=== PATIENT | male | born 1965 | race Caucasian/White ===

== ENCOUNTER → 2020-01-15 13:06 | Outpatient (BNVA) | payer OTHER, SELFPAY | PROVIDERS: PCP Physician Assistant; Visit Provider Family Medicine Adult Medicine | DX: M47.816 Spondylosis without myelopathy or radiculopathy, lumbar region (principal); G89.29 Other chronic pain; Z79.891 Long term (current) use of opiate analgesic | CPT/HCPCS: 99214 ==

== ENCOUNTER 2020-02-10 14:04 | Outpatient (REF) | payer OTHER, SELFPAY ==
[2020-02-10 14:54] LABS: MANUAL DIFF FLAG NO
[2020-02-10 14:57] LABS: Basophils Percent Auto 0.1 % (0-2); Hematocrit 40.4 % (42-52); Hemoglobin 13.1 g/dl (14.0-18.0); Imm Gran Pct Auto 2.2 % (0.0-0.4); Lymphocytes Absolute Auto 0.8 X10*3/uL (1.2-4.9); Lymphocytes Percent Auto 8.6 % (20-40); Mean Corpuscular HGB Conc 32.4 g/dl (31.0-36.0); Mean Corpuscular Hemoglobin 31.9 pg (27.0-33.0); Mean Corpuscular Volume 98.3 fL (80-98); Mean Platelet Volume 9.8 fL (9.4-12.4); Monocytes Absolute Auto 0.5 X10*3/uL (0.1-1.2); Monocytes Percent Auto 5.7 % (2-11); NRBC Pct Auto 0.2 /100WBC (0.0-0.2); Neutrophils Absolute Auto 7.4 X10*3/uL (2.0-8.3); Neutrophils Percent Auto 83.4 % (45-73); Platelet Count 212 X10*3/uL (160-400); Red Blood Count 4.11 X10*6/uL (4.60-5.80); White Blood Count 8.9 X10*3/uL (4.8-10.8)
[2020-02-10 15:28] LABS: Alanine Aminotransferase 39 U/L (0-40); Albumin Level 4.1 g/dL (3.5-5.0); Alkaline Phosphatase 65 U/L (39-117); Anion Gap 16 (12-20); Aspartate Amino Transferase 27 U/L (5-37); Bilirubin Total 0.7 mg/dL (0.0-1.0); Blood Urea Nitrogen 21 mg/dL (9-16); Calcium 8.2 mg/dL (8.4-10.2); Carbon Dioxide 34 mmol/L (22-29); Chloride 97 mmol/L (96-108); Estimated Glomerular Filt Rate > 60; Glucose Random 129 mg/dL (60-115); Potassium 3.8 mmol/l (3.3-5.1); Sodium 143 mmol/L (135-145); Total Protein 6.9 g/dL (6.5-8.0)
[2020-02-10 15:34] LABS: B Type Natriuretic Peptide 26 pg/mL (<100)
== END 2020-02-10 14:05 | disposition home or self-care (01) ==
LOC: HO.LAB 14:04
PROVIDERS: PCP Physician Assistant; Visit Provider Physician Assistant
DX: J44.9 Chronic obstructive pulmonary disease, unspecified (principal); I10 Essential (primary) hypertension
CPT/HCPCS: 36415; 80053; 83880; 85025

== ENCOUNTER → 2020-03-17 14:35 | Outpatient (BNVA) | payer OTHER, SELFPAY | PROVIDERS: PCP Physician Assistant; Visit Provider Anesthesiology | DX: Z76.89 Persons encountering health services in other specified circumstances (principal) ==

== ENCOUNTER → 2020-04-27 15:36 | Outpatient (BNVA) | payer OTHER, SELFPAY | PROVIDERS: PCP Physician Assistant; Visit Provider Family Medicine Adult Medicine | DX: M47.816 Spondylosis without myelopathy or radiculopathy, lumbar region (principal); Z79.899 Other long term (current) drug therapy | CPT/HCPCS: 99212 ==

== ENCOUNTER 2020-04-30 13:55 | Outpatient (REF) | payer OTHER, SELFPAY ==
[2020-04-30 15:31] LABS: Alanine Aminotransferase 34 U/L (0-40); Alkaline Phosphatase 67 U/L (39-117); Anion Gap 17 (12-20); Aspartate Amino Transferase 17 U/L (5-37); Bilirubin Total 1.7 mg/dL (0.0-1.0); Blood Urea Nitrogen 22 mg/dL (9-16); Calcium 8.1 mg/dL (8.4-10.2); Carbon Dioxide 33 mmol/L (22-29); Chloride 94 mmol/L (96-108); Cholesterol 225 mg/dL; Estimated Glomerular Filt Rate > 60; Glucose Fasting 103 mg/dL (60-99); HDL Cholesterol 93 mg/dL; LDL Cholesterol Calculated 106 mg/dl; Potassium 2.9 mmol/L (3.3-5.1); Sodium 141 mmol/L (135-145); Total Protein 6.1 g/dL (6.5-8.0); Triglycerides 131 mg/dL
[2020-04-30 15:45] LABS: Estimated Average Glucose 105 mg/dL; Hemoglobin A1c % 5.3 %
[2020-04-30 15:47] LABS: TSH reflex Free T4 1.23 uIU/mL (0.32-4.0)
== END 2020-04-30 13:56 | disposition home or self-care (01) ==
LOC: HO.LAB 13:55
PROVIDERS: PCP Physician Assistant; Visit Provider Physician Assistant
DX: E66.9 Obesity, unspecified (principal); I50.9 Heart failure, unspecified
CPT/HCPCS: 36415; 80053; 80061; 83036; 84443

== ENCOUNTER → 2020-05-25 16:03 | Outpatient (BNVA) | payer OTHER, SELFPAY | PROVIDERS: PCP Physician Assistant; Visit Provider Family Medicine Adult Medicine | DX: M47.816 Spondylosis without myelopathy or radiculopathy, lumbar region (principal); Z79.899 Other long term (current) drug therapy | CPT/HCPCS: 99212 ==

== ENCOUNTER → 2020-06-09 10:07 | Outpatient (REF) | payer OTHER, SELFPAY ==
--- NOTE | ~2020-06-09 | NM_ITS ---
Myocardial perfusion study Indication: Cardiomyopathy to evaluate for myocardial Technique: The patient was brought in for a Lexiscan perfusion study on 06/09/2020. Patient performed low-level exercise and was injected 0.4 mg of Lexiscan intravenously. Within a minute of injection, 30 mCi of sestamibi was given intravenously. Images were obtained using the SPECT gamma camera interlaced with the gating device. Images were obtained in supine position. Resting perfusion study was performed on 06/10/2020. Patient was administered 30 mCi of sestamibi intravenously at rest. Images were then obtained in supine position. Images obtained with and without CT attenuation. Total DLP 78 mGy-cm. Images were processed with the software and compared side to side in short axis, horizontal long axis and vertical long axis views. Findings: The stress perfusion study showed non attenuated images show mildly reduced uptake in the apex and basal inferior wall of the LV myocardium. Remainder of the LV myocardium is normally perfused. Attenuation corrected images show mildly reduced uptake in the apex of the LV myocardium. The gated study shows normal LV systolic function with calculated LVEF of 67%. LV cavity is mildly dilated size. The gated study shows normal systolic wall thickening and contraction of segments. Resting study shows no change in perfusion pattern compared to stress study. Gating at rest reveals normal systolic wall motion with ejection fraction at 71%. The findings are consistent with normal myocardial perfusion. NM/NM claudia perf SPECT rest & str Impression: 1. Myocardial perfusion imaging study shows normal myocardial perfusion 2. Gated LVEF is 67% 3. Transient ischemic dilatation not present EKG is nondiagnostic for ischemia
--- NOTE | 2020-06-09 10:00 | CA_ITS ---
Acquisition Time: 2020-06-09 10:45:02 Total Exercise Time: 00:02:00 Test Indications: CARDIOMYOPATHY Medications: SEE CHART Protocol: LEXISCAN Max HR: 122 BPM 72% of Pred: 168 BPM Max BP: 124/066 mmHG Max Work Load: 1.0 METS Pharmacological stress test using Lexiscan While sitting. Pt tolerated well, denies any anginal sx. EKG with PAC's and PVC's at baseline with no change after Lexiscan injection. Non-diagnostic for ischemia. Nuclear images to follow. Normotensive response to test. Test reviewed with Dr. Marquez. Referred By: Tenzin Gacria Overread By: Brielle Benton NP
== END ==
LOC: HO.CARD 10:07
PROVIDERS: Visit Provider Internal Medicine
DX: I42.9 Cardiomyopathy, unspecified (principal)
CPT/HCPCS: 78452; 93016; 93017; 93018; A9500; J0280; J2785

== ENCOUNTER 2020-07-06 13:49 | Outpatient (REF) | payer OTHER, SELFPAY ==
[2020-07-06 16:48] LABS: Anion Gap 19 (12-20); Blood Urea Nitrogen 27 mg/dL (9-16); Calcium 7.7 mg/dL (8.4-10.2); Carbon Dioxide 27 mmol/L (22-29); Chloride 94 mmol/L (96-108); Estimated Glomerular Filt Rate 27; Glucose Random 100 mg/dL (60-115); Potassium 4.3 mmol/L (3.3-5.1); Sodium 136 mmol/L (135-145)
== END 2020-07-06 13:50 | disposition home or self-care (01) ==
LOC: HO.LAB 13:49
PROVIDERS: Absent Provider Physician Assistant; PCP Physician Assistant; Visit Provider Family Medicine Adult Medicine
DX: M47.816 Spondylosis without myelopathy or radiculopathy, lumbar region (principal); E87.6 Hypokalemia; Z79.891 Long term (current) use of opiate analgesic
CPT/HCPCS: 36415; 80048; Q3014

== ENCOUNTER → 2020-07-07 12:54 | Outpatient (BNVA) | payer OTHER, SELFPAY | PROVIDERS: PCP Physician Assistant; Visit Provider Internal Medicine | DX: I95.0 Idiopathic hypotension (principal); I42.9 Cardiomyopathy, unspecified; R00.0 Tachycardia, unspecified | CPT/HCPCS: 93005; 99212 ==

== ENCOUNTER 2020-07-07 13:31 | Emergency (ER) | payer OTHER, SELFPAY ==
--- NOTE | ~2020-07-07 | XR_ITS ---
EXAMINATION: XR CHEST CLINICAL INFORMATION: Hypotension COMPARISON: Chest radiograph 09/01/[address] of the chest 10/17/2019 TECHNIQUE: Frontal view of the chest was obtained. FINDINGS: Normal cardiac mediastinal silhouette. Adequate expansion of the lungs. No focal consolidation. No pleural effusion or pneumothorax. No acute osseous abnormality. XR/XR chest 1V IMPRESSION: No acute disease within the chest.
[2020-07-07 14:05] VITALS: BP 85/49; PULSE 112; RESP 18; TEMP 36.8; O2SAT 100; BMI 34.0
[2020-07-07 16:21] LABS: COVID-19 Test Negative (Negative)
[2020-07-07 16:33] VITALS: BP 97/51; PULSE 111; RESP 12; TEMP 36.3; O2SAT 99
[2020-07-07 16:55] LABS: Glucose Urine UA NEG (NEG); Leukocyte Esterase Urine NEG (NEG); Nitrite Urine NEG (NEG); Specific Gravity - Urine 1.015 (1.005-1.025); Urine Blood NEG (NEG); Urine Ketones NEG (NEG); Urine Protein NEG (NEG-TRACE)
[2020-07-07 16:59] LABS: Appearance Urine CLEAR; Color Urine YELLOW
--- NOTE | 2020-07-07 17:01 | ECG_ITS ---
Test Reason : HYPOTENSION Blood Pressure : / mmHG Vent. Rate : 111 BPM Atrial Rate : 111 BPM P-R Int : 144 ms QRS Dur : 094 ms QT Int : 334 ms P-R-T Axes : 066 048 067 degrees QTc Int : 454 ms Sinus tachycardia Nonspecific T wave changes Borderline ECG No previous ECGs available Referred By: Ghazal Cisneros Electronically Signed By:Corbin Klein
[2020-07-07 17:15] LABS: Lactic Acid 1.2 mmol/L (0.5-2.0)
[2020-07-07 17:17] LABS: Anion Gap 18 (12-20); Blood Urea Nitrogen 30 mg/dL (9-16); Calcium 7.9 mg/dL (8.4-10.2); Carbon Dioxide 27 mmol/L (22-29); Chloride 93 mmol/L (96-108); Creatinine Clr Calc Pharmacy 37.1; Estimated Glomerular Filt Rate 24; Glucose Random 100 mg/dL (60-115); Potassium 3.4 mmol/L (3.3-5.1); Sodium 135 mmol/L (135-145)
--- NOTE | 2020-07-07 17:18 | ED.GENADULT ---
HPI - General Adult General Chief complaint: General Medical Stated complaint: CELLUCLITS LOW BLOOD PRESSURE Time Seen by Provider: 07/07/20 16:37 Source: patient Mode of arrival: ambulatory Limitations: no limitations History of Present Illness HPI narrative: Patient comes emergency room complaining of low blood pressure. Patient was sent here from Cardiology. Patient states that he has been feeling generally weak and unwell for 2 weeks to about a month. Patient states that his legs have been getting more swollen, states that he has not been taking acetazolamide because he was instructed to discontinue it due to low blood pressure issues. Patient states yesterday his blood pressure at home was 70 systolic. Patient states his usual blood pressure is well above 120/80 systolic. Patient has noticed that when he walks, he gets very short of breath, also has noted that his legs have been getting more erythematous, tender to touch, denies fever chills. Patient also complaining dizziness especially when standing up. For cardiology notes, in 2019, patient had an ejection fraction of 45%. MD complaint: Dizziness, low blood pressure Related Data Home Medications Medication Instructions Recorded Confirmed albuterol sulfate 90 mcg/actuation 2 puff INHALATION Q6H PRN 01/15/20 07/07/20 aerosol inhaler fluticasone 250 mcg-salmeterol 50 1 ea INHALATION BID 01/15/20 07/07/20 mcg/dose blistr powdr for inhalation vardenafil 20 mg tablet 20 mg PO 01/15/20 07/07/20 Previous Rx's Medication Instructions Recorded sacubitril 24 mg-valsartan 26 mg 1 tab PO BID 30 Days #60 tab 01/05/20 tablet omeprazole 20 mg capsule,delayed 20 mg PO DAILY #30 cap 04/14/20 release acetazolamide 125 mg tablet 125 mg PO DAILY #7 cap 04/28/20 mupirocin 2 % topical ointment 1 appl TOPICAL BID 15 Days #22 cap 06/02/20 nystatin 100,000 unit/mL oral 4 ml PO DAILY PRN #60 cap 06/02/20 suspension carvedilol 6.25 mg tablet 6.25 mg PO DAILY #30 cap 06/16/20 clonazepam 1 mg tablet 1 mg PO DAILY PRN 30 Days #30 tab 06/16/20 furosemide 40 mg tablet 40 mg PO BID #60 cap 03/24/21 ibuprofen 800 mg tablet 800 mg PO Q6H #28 cap 06/16/20 pravastatin 40 mg tablet 40 mg PO DAILY #30 cap 06/16/20 buprenorphine 20 mcg/hour weekly 1 patch TRANSDERMAL Q7D 28 Days #4 07/06/20 transdermal patch ea buprenorphine 8 mg-naloxone 2 mg 1 film BUCCAL Q24H 30 Days #30 ea 07/06/20 sublingual film cephalexin [Keflex] 750 mg PO BID #20 cap 07/07/20 doxycycline hyclate 100 mg PO DAILY #20 cap 07/07/20 Allergies Allergy/AdvReac Type Severity Reaction Status Date / Time lisinopril Allergy Unknown ? kidney Verified 07/07/20 13:01 issue possible r/t to this med Review of Systems Review of Systems: Constitutional : No Weight loss, No Fever, No Chills, No Night Sweats, No Fatigue, No Malaise ENT/Mouth : No Hearing loss, No Ear Pain, No Nasal Congestion, No Sinus Pain, No Hoarseness, No sore throat, No Rhinorrhea, No Swallowing Difficulty Eyes: No Eye Pain, No Swelling, No Redness, No Foreign Body, No Discharge, No Vision Changes Cardiovascular : No Chest Pain, No SOB, complaining of Dyspnea on Exertion, No Orthopnea, complaining of worsening bilateral lower extremity edema Respiratory : No Cough, No Sputum, No Wheezing, No Smoke Exposure, No Dyspnea Gastrointestinal : No Nausea, No Vomiting, No Diarrhea, No Constipation, No abdominal Pain, No Hematochezia, No Melena Genitourinary : no irregular bleeding, No Dysuria, No Urinary Frequency, No Hematuria, No Urinary Incontinence, No Urgency, No Flank Pain, No Urinary Flow Changes, No Hesitancy Musculoskeletal : No joint pain, No Myalgias, No Joint Swelling Skin : Worsening erythematous skin in bilateral lower extremities Neuro : No Weakness, No Numbness, No Paresthesias, No Loss of Consciousness, No Dizziness, No Headache Psych : No Anxiety/Panic, No Depression, No SI/HI/AH/VH, No Social Issues, Heme/Lymph: No Bruising, No Bleeding,No Lymphadenopathy Endocrine : No Polyuria, No Polydipsia, No Temperature Intolerance PMFSH Past Medical History Medical History Anemia Avascular necrosis of bone Cardiomyopathy CHF (congestive heart failure) History of avascular necrosis of capital femoral epiphysis Hypogonadism Lumbar spondylosis Obesity Sinus tachycardia Spondylosis Surgical History History of hand surgery Hx of bilateral hip replacements Family History Family History Father Heart problem CVD (cardiovascular disease) Myocardial infarction Mother No problems noted. Daughter In good health Son In good health Sister In good health Social History Social History Smoking Status: Current some day smoker Tobacco Type: Cigarette Advance Directives: No Advance Directives Information Provided: Yes Physical Exam Vital Signs: Vital Signs: Last Vital Signs Temp 97.7 F 07/07/20 20:59 Pulse 116 H 07/07/20 22:53 Resp 16 07/07/20 22:53 BP 98/57 L 07/07/20 22:53 Pulse Ox 98 07/07/20 22:53 Body Mass Index 34.0 Appearance: Alert. Oriented X3. No acute distress. Eyes: Pupils equal, round and reactive to light. ENT: Pharynx normal. Neck: Normal inspection. Neck supple. No lymph nodes noted. No crepitus CVS: Normal heart rate and rhythm. Distant heart sounds, Pulses normal. Normal S1 and S2 Respiratory: No respiratory distress. Decreased Breath sounds normal. No Wheezing. No rales Abdomen: Soft and nontender. No rigidity. No distention. good BS x4 Skin: Skin warm and dry. Erythematous skin, see below Extremities: + 4 pitting edema bilaterally, erythematous skin in lower extremities, likely cellulitis Neuro: Oriented X 3. No motor deficit. No sensory deficit. Moving all extermities. No slurred speech. Course Course Course Narrative: Patient is known to have heart failure, at this time we will start fluids but they will be administered slowly. It is unclear why the patient's blood pressure is low, could be cardiac versus infectious from cellulitis. From the labs that we have gotten so far, patient's white blood cell count is normal and lactic acid is normal, it is more likely that the patient's low blood pressure is due to medications. I discussed with the patient that his creatinine is elevated, states that he wants to go home, after a long discussion he agrees to get some fluids. I discussed with the patient that he should be admitted due to the low blood pressure, heart rate in the 130s, acute kidney injury, patient states that he absolutely refuses to stay in the hospital. Patient's blood pressure 84/ 53, heart rate 125, once again I discussed with the patient to stay in the emergency room, patient declined, patient will be given p.o. antibiotics for lower extremity cellulitis. Patient struck to have close follow-up with his PCP and Dr. Garcia contacted and that him know that the patient has low blood pressure and is insisting on going home. Patient aware of the acute kidney injury, getting fluids, does not want to stay for repeat labs. Medical Decision Making Lab Data Result diagrams: 07/07/20 16:24 07/07/20 16:24 Labs: Lab Results 07/07/20 07/07/20 07/07/20 Range/Units 15:44 16:24 16:24 WBC (4.8-10.8) X10*3/uL RBC (4.60-5.80) X10*6/uL Hgb (14.0-18.0) g/dl Hct (42-52) % MCV (80-98) fL MCH (27.0-33.0) pg MCHC (31.0-36.0) g/dl RDW (11.0-16.0) % Plt Count (160-400) X10*3/uL MPV (9.4-12.4) fL Immature Gran % (Auto) (0.0-0.4) % Neut % (Auto) (45-73) % Lymph % (Auto) (20-40) % Metcalfe % (Auto) (2-11) % Eos % (Auto) (0-4) % Baso % (Auto) (0-2) % Lymph # (Auto) (1.2-4.9) X10*3/uL Metcalfe # (Auto) (0.1-1.2) X10*3/uL Eos # (Auto) (0.0-0.4) X10*3/uL Baso # (Auto) (0.0-0.2) X10*3/uL Abs Immat Gran (auto) (0.00-0.03) X10*3/uL Absolute Neuts (auto) (2.0-8.3) X10*3/uL Absolute Nucleated RBC (0.0-0.012) X10*3/uL Nucleated RBC % (auto) (0.0-0.2) /100WBC PT (10.8-13.0) SEC INR (0.9-1.1) Hold Blue Top SEE NOTE Sodium 135 (135-145) mmol/L Potassium 3.4 D (3.3-5.1) mmol/L Chloride 93 L (96-108) mmol/L Carbon Dioxide 27 (22-29) mmol/L Anion Gap 18 (12-20) BUN 30 H (9-16) mg/dL Creatinine 2.77 H (0.5-1.4) mg/dL Estim Creat Clear Calc 37.1 Estimated GFR 24 Random Glucose 100 (60-115) mg/dL Lactic Acid (0.5-2.0) mmol/L Calcium 7.9 L (8.4-10.2) mg/dL Total Bilirubin 1.0 (0.0-1.0) mg/dL Direct Bilirubin 0.4 (0.0-0.5) mg/dL AST 18 (5-37) U/L ALT 31 (0-40) U/L Alkaline Phosphatase 86 D (39-117) U/L Troponin I High Sens (<3.5-35.0) ng/L B-Natriuretic Peptide (<100) pg/mL Total Protein 5.9 L (6.5-8.0) g/dL Albumin 3.8 (3.5-5.0) g/dL Urine Color Urine Appearance Urine pH (5.0-8.0) Ur Specific Morrow (1.005-1.025) Urine Protein (NEG-TRACE) MG/DL Urine Glucose (UA) (NEG) MG/DL Urine Ketones (NEG) MG/DL Urine Blood (NEG) Urine Nitrite (NEG) Ur Leukocyte Esterase (NEG) COVID-19 ([facility]) Negative (Negative) COVID-19 Clin Com See Note 07/07/20 07/07/20 07/07/20 Range/Units 16:24 16:24 16:24 WBC 7.5 (4.8-10.8) X10*3/uL RBC 2.79 L D (4.60-5.80) X10*6/uL Hgb 9.8 L D (14.0-18.0) g/dl Hct 29.8 L D (42-52) % MCV 106.8 H (80-98) fL MCH 35.1 H (27.0-33.0) pg MCHC 32.9 (31.0-36.0) g/dl RDW 14.0 (11.0-16.0) % Plt Count 227 (160-400) X10*3/uL MPV 9.2 L (9.4-12.4) fL Immature Gran % (Auto) 0.4 (0.0-0.4) % Neut % (Auto) 77.1 H (45-73) % Lymph % (Auto) 11.6 L (20-40) % Metcalfe % (Auto) 10.5 (2-11) % Eos % (Auto) 0.1 (0-4) % Baso % (Auto) 0.3 (0-2) % Lymph # (Auto) 0.9 L (1.2-4.9) X10*3/uL Metcalfe # (Auto) 0.8 (0.1-1.2) X10*3/uL Eos # (Auto) 0.0 (0.0-0.4) X10*3/uL Baso # (Auto) 0.0 (0.0-0.2) X10*3/uL Abs Immat Gran (auto) 0.03 (0.00-0.03) X10*3/uL Absolute Neuts (auto) 5.8 (2.0-8.3) X10*3/uL Absolute Nucleated RBC 0.000 (0.0-0.012) X10*3/uL Nucleated RBC % (auto) 0.0 (0.0-0.2) /100WBC PT 11.8 (10.8-13.0) SEC INR 1.0 (0.9-1.1) Hold Blue Top Sodium (135-145) mmol/L Potassium (3.3-5.1) mmol/L Chloride (96-108) mmol/L Carbon Dioxide (22-29) mmol/L Anion Gap (12-20) BUN (9-16) mg/dL Creatinine (0.5-1.4) mg/dL Estim Creat Clear Calc Estimated GFR Random Glucose (60-115) mg/dL Lactic Acid 1.2 (0.5-2.0) mmol/L Calcium (8.4-10.2) mg/dL Total Bilirubin (0.0-1.0) mg/dL Direct Bilirubin (0.0-0.5) mg/dL AST (5-37) U/L ALT (0-40) U/L Alkaline Phosphatase (39-117) U/L Troponin I High Sens (<3.5-35.0) ng/L B-Natriuretic Peptide (<100) pg/mL Total Protein (6.5-8.0) g/dL Albumin (3.5-5.0) g/dL Urine Color Urine Appearance Urine pH (5.0-8.0) Ur Specific Morrow (1.005-1.025) Urine Protein (NEG-TRACE) MG/DL Urine Glucose (UA) (NEG) MG/DL Urine Ketones (NEG) MG/DL Urine Blood (NEG) Urine Nitrite (NEG) Ur Leukocyte Esterase (NEG) COVID-19 ([facility]) (Negative) COVID-19 Clin Com 07/07/20 07/07/20 Range/Units 16:24 16:47 WBC (4.8-10.8) X10*3/uL RBC (4.60-5.80) X10*6/uL Hgb (14.0-18.0) g/dl Hct (42-52) % MCV (80-98) fL MCH (27.0-33.0) pg MCHC (31.0-36.0) g/dl RDW (11.0-16.0) % Plt Count (160-400) X10*3/uL MPV (9.4-12.4) fL Immature Gran % (Auto) (0.0-0.4) % Neut % (Auto) (45-73) % Lymph % (Auto) (20-40) % Metcalfe % (Auto) (2-11) % Eos % (Auto) (0-4) % Baso % (Auto) (0-2) % Lymph # (Auto) (1.2-4.9) X10*3/uL Metcalfe # (Auto) (0.1-1.2) X10*3/uL Eos # (Auto) (0.0-0.4) X10*3/uL Baso # (Auto) (0.0-0.2) X10*3/uL Abs Immat Gran (auto) (0.00-0.03) X10*3/uL Absolute Neuts (auto) (2.0-8.3) X10*3/uL Absolute Nucleated RBC (0.0-0.012) X10*3/uL Nucleated RBC % (auto) (0.0-0.2) /100WBC PT (10.8-13.0) SEC INR (0.9-1.1) Hold Blue Top Sodium (135-145) mmol/L Potassium (3.3-5.1) mmol/L Chloride (96-108) mmol/L Carbon Dioxide (22-29) mmol/L Anion Gap (12-20) BUN (9-16) mg/dL Creatinine (0.5-1.4) mg/dL Estim Creat Clear Calc Estimated GFR Random Glucose (60-115) mg/dL Lactic Acid (0.5-2.0) mmol/L Calcium (8.4-10.2) mg/dL Total Bilirubin (0.0-1.0) mg/dL Direct Bilirubin (0.0-0.5) mg/dL AST (5-37) U/L ALT (0-40) U/L Alkaline Phosphatase (39-117) U/L Troponin I High Sens < 3.5 (<3.5-35.0) ng/L B-Natriuretic Peptide < 10 (<100) pg/mL Total Protein (6.5-8.0) g/dL Albumin (3.5-5.0) g/dL Urine Color YELLOW Urine Appearance CLEAR Urine pH 6.0 (5.0-8.0) Ur Specific Morrow 1.015 (1.005-1.025) Urine Protein NEG (NEG-TRACE) MG/DL Urine Glucose (UA) NEG (NEG) MG/DL Urine Ketones NEG (NEG) MG/DL Urine Blood NEG (NEG) Urine Nitrite NEG (NEG) Ur Leukocyte Esterase NEG (NEG) COVID-19 ([facility]) (Negative) COVID-19 Clin Com Imaging Data Chest x-ray: Radiologist's impression: FINDINGS: Normal cardiac mediastinal silhouette. Adequate expansion of the lungs. No focal consolidation. No pleural effusion or pneumothorax. No acute osseous abnormality. XR/XR chest 1V IMPRESSION: No acute disease within the chest. ECG Data Attestation: I personally reviewed and interpreted this ECG as follows: (Sinus tachycardia, no C segment elevation or depression, no T-wave inversion, QTC 454, reduced voltage EKG) Discharge Plan Discharge Clinical Impression: Hypotension, Acute kidney injury, Tachycardia, Cellulitis Patient Disposition: Left Against Medical Advice Instructions: Cellulitis (ED), Hypotension (ED) Additional Instructions: You refused to be admitted the hospital. 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 Please follow-up with your primary care physician tomorrow. If you have any worsening or new symptoms, please return to the emergency room or call 911 Prescriptions: New cephalexin [Keflex] 750 mg capsule 750 mg PO BID Qty: 20 RF: 0 doxycycline hyclate 100 mg capsule 100 mg PO DAILY Qty: 20 RF: 0 No Action Entresto 24-26 mg tablet 1 tab PO BID 30 Days Qty: 60 RF: 3 omeprazole 20 mg capsule,delayed release(DR/EC) 20 mg PO DAILY Qty: 30 RF: 2 acetazolamide 125 mg tablet 125 mg PO DAILY Qty: 7 RF: 0 nystatin 100,000 unit/mL suspension 4 ml PO DAILY PRN (Reason: for candidiasis) Qty: 60 RF: 3 mupirocin 2 % ointment 1 appl topical BID 15 Days Qty: 22 RF: 0 carvedilol 6.25 mg tablet 6.25 mg PO DAILY Qty: 30 RF: 3 furosemide 40 mg tablet 40 mg PO BID Qty: 60 RF: 3 pravastatin 40 mg tablet 40 mg PO DAILY Qty: 30 RF: 3 clonazepam 1 mg tablet 1 mg PO DAILY PRN (Reason: anxiety) 30 Days Qty: 30 RF: 1 ibuprofen 800 mg tablet 800 mg PO Q6H Qty: 28 RF: 2 buprenorphine [Butrans] 20 mcg/hour patch weekly 1 patch transdermal Q7D 28 Days Qty: 4 RF: 1 buprenorphine-naloxone 8-2 mg film 1 film buccal Q24H 30 Days Qty: 30 RF: 1 vardenafil 20 mg tablet 20 mg PO RF: 0 albuterol sulfate 90 mcg/actuation HFA aerosol inhaler 2 puff inhalation Q6H PRNRF: 0 fluticasone propion-salmeterol 250-50 mcg/dose blister with device 1 ea inhalation BID RF: 0 Referrals: Tenzin Garcia MD [Physician] - 2 days Interventions: ED Discharge Assessment Last Done: 07/07/20 23:20 Discharge Date/Time: 07/07/20 23:22
[2020-07-07 17:47] VITALS: BP 79/34; PULSE 122; RESP 12; TEMP 36.6; O2SAT 99
[2020-07-07 18:00] LABS: MANUAL DIFF FLAG NO
[2020-07-07 18:05] LABS: Basophils Percent Auto 0.3 % (0-2); Eosinophils Percent Auto 0.1 % (0-4); Hematocrit 29.8 % (42-52); Hemoglobin 9.8 g/dl (14.0-18.0); Imm Gran Abs Auto 0.03 X10*3/uL (0.00-0.03); Imm Gran Pct Auto 0.4 % (0.0-0.4); Lymphocytes Absolute Auto 0.9 X10*3/uL (1.2-4.9); Lymphocytes Percent Auto 11.6 % (20-40); Mean Corpuscular HGB Conc 32.9 g/dl (31.0-36.0); Mean Corpuscular Hemoglobin 35.1 pg (27.0-33.0); Mean Corpuscular Volume 106.8 fL (80-98); Mean Platelet Volume 9.2 fL (9.4-12.4); Monocytes Absolute Auto 0.8 X10*3/uL (0.1-1.2); Monocytes Percent Auto 10.5 % (2-11); Neutrophils Absolute Auto 5.8 X10*3/uL (2.0-8.3); Neutrophils Percent Auto 77.1 % (45-73); Platelet Count 227 X10*3/uL (160-400); Prothrombin Time 11.8 SEC (10.8-13.0); Red Blood Count 2.79 X10*6/uL (4.60-5.80); White Blood Count 7.5 X10*3/uL (4.8-10.8)
[2020-07-07 18:28] LABS: Alanine Aminotransferase 31 U/L (0-40); Albumin Level 3.8 g/dL (3.5-5.0); Alkaline Phosphatase 86 U/L (39-117); Aspartate Amino Transferase 18 U/L (5-37); Bilirubin Direct 0.4 mg/dL (0.0-0.5); Total Protein 5.9 g/dL (6.5-8.0)
[2020-07-07 18:32] LABS: B Type Natriuretic Peptide < 10 pg/mL (<100); Troponin-I High Sensitivity < 3.5 ng/L (<3.5-35.0)
[2020-07-07] MEDS: 0.9 % Sodium Chloride 1,000 ML 500 ML IVCONT ×2 (19:44)
[2020-07-07 20:07] VITALS: BP 84/51; PULSE 128; RESP 16; O2SAT 97
[2020-07-07 20:59] VITALS: BP 97/50; PULSE 126; RESP 25; TEMP 36.5; O2SAT 97
[2020-07-07] MEDS: cephALEXin 500 MG CAPSULE PO (21:03)
[2020-07-07 22:53] VITALS: BP 98/57; PULSE 116; RESP 16; O2SAT 98
== END 2020-07-07 23:22 | disposition left against medical advice (07) ==
PROVIDERS: Emergency Provider Emergency Medicine; PCP Physician Assistant
DX: I95.9 Hypotension, unspecified (principal); N17.9 Acute kidney failure, unspecified; R00.0 Tachycardia, unspecified; L03.116 Cellulitis of left lower limb; L03.115 Cellulitis of right lower limb; Z20.822 Contact with and (suspected) exposure to COVID-19; D64.9 Anemia, unspecified; I50.9 Heart failure, unspecified; F17.210 Nicotine dependence, cigarettes, uncomplicated
CPT/HCPCS: 36415; 71045; 80048; 80076; 81003; 83605; 83880; 84484; 85025; 85610; 87040; 87635; 93005; 96360; 96361; 99284; 99285

== ENCOUNTER 2020-08-11 13:52 | Outpatient (REF) | payer OTHER, SELFPAY ==
[2020-08-11 14:41] LABS: Hematocrit 31.2 % (42-52); Hemoglobin 10.5 g/dl (14.0-18.0); Mean Corpuscular HGB Conc 33.7 g/dl (31.0-36.0); Mean Corpuscular Hemoglobin 35.7 pg (27.0-33.0); Mean Corpuscular Volume 106.1 fL (80-98); Mean Platelet Volume 9.5 fL (9.4-12.4); Platelet Count 182 X10*3/uL (160-400); Red Blood Count 2.94 X10*6/uL (4.60-5.80); Red Cell Distribution Width 14.6 % (11.0-16.0); White Blood Count 5.2 X10*3/uL (4.8-10.8)
[2020-08-11 15:17] LABS: Anion Gap 15 (12-20); Blood Urea Nitrogen 9 mg/dL (9-16); Carbon Dioxide 35 mmol/L (22-29); Chloride 89 mmol/L (96-108); Estimated Glomerular Filt Rate 42; Glucose Random 117 mg/dL (60-115); Iron 52 mcg/dL (45-160); Percent Iron Saturation 20 % (15-50); Potassium 2.5 mmol/L (3.3-5.1); Sodium 136 mmol/L (135-145); Total Iron Binding Capacity 262 mcg/dL (228-428); Unsaturated Iron Binding 210 ug/dL
[2020-08-11 15:26] LABS: Vitamin D 25-OH Total 22.3 ng/mL (>30)
[2020-08-11 15:40] LABS: Vitamin B12 > 2000 pg/mL (200-900)
[2020-08-14 22:32] LABS: Intrinsic Factor Antibodies Positive (Negative)
== END 2020-08-11 13:53 | disposition home or self-care (01) ==
LOC: HO.LAB 13:52
PROVIDERS: PCP Physician Assistant; Visit Provider Physician Assistant
DX: E87.6 Hypokalemia (principal); D53.9 Nutritional anemia, unspecified; I10 Essential (primary) hypertension; D50.9 Iron deficiency anemia, unspecified
CPT/HCPCS: 36415; 80048; 82306; 82607; 82746; 83540; 85027; 86340

== ENCOUNTER 2020-08-13 14:14 | Outpatient (REF) | payer OTHER, SELFPAY ==
[2020-08-13 15:19] LABS: Anion Gap 18 (12-20); Carbon Dioxide 31 mmol/L (22-29); Chloride 92 mmol/L (96-108); Potassium 2.7 mmol/L (3.3-5.1); Sodium 138 mmol/L (135-145)
[2020-08-18 15:37] LABS: Aldosterone/Renin Ratio 0.1 Ratio (0.9-28.9); Plasma Renin Activity 39.77 ng/mL/h (0.25-5.82)
== END 2020-08-13 14:15 | disposition home or self-care (01) ==
LOC: HO.LAB 14:14
PROVIDERS: PCP Physician Assistant; Visit Provider Physician Assistant
DX: E87.6 Hypokalemia (principal); I10 Essential (primary) hypertension
CPT/HCPCS: 36415; 80051; 82088

== ENCOUNTER → 2020-08-17 13:37 | Outpatient (BNVA) | payer OTHER, SELFPAY | PROVIDERS: PCP Physician Assistant; Visit Provider Family Medicine Adult Medicine | DX: M47.816 Spondylosis without myelopathy or radiculopathy, lumbar region (principal) | CPT/HCPCS: Q3014 ==

== ENCOUNTER 2020-08-18 13:56 | Outpatient (REF) | payer OTHER, SELFPAY ==
[2020-08-18 14:43] LABS: Anion Gap 16 (12-20); Blood Urea Nitrogen 14 mg/dL (9-16); Calcium 8.5 mg/dL (8.4-10.2); Carbon Dioxide 29 mmol/L (22-29); Chloride 98 mmol/L (96-108); Estimated Glomerular Filt Rate > 60; Glucose Random 156 mg/dL (60-115); Potassium 3.1 mmol/L (3.3-5.1); Sodium 140 mmol/L (135-145)
== END 2020-08-18 13:57 | disposition home or self-care (01) ==
LOC: HO.LAB 13:56
PROVIDERS: PCP Physician Assistant; Visit Provider Physician Assistant
DX: E87.6 Hypokalemia (principal)
CPT/HCPCS: 36415; 80048

== ENCOUNTER 2020-08-26 16:02 | Outpatient (REF) | payer OTHER, SELFPAY ==
[2020-08-26 17:17] LABS: Anion Gap 17 (12-20); Blood Urea Nitrogen 9 mg/dL (9-16); Calcium 7.7 mg/dL (8.4-10.2); Carbon Dioxide 29 mmol/L (22-29); Chloride 100 mmol/L (96-108); Estimated Glomerular Filt Rate 60; Glucose Random 107 mg/dL (60-115); Potassium 3.6 mmol/L (3.3-5.1); Sodium 142 mmol/L (135-145)
[2020-09-01 18:07] LABS: Testosterone, Free 0.5 pg/mL (35.0-155.0); Testosterone, Total 5 ng/dL (250-1100)
== END 2020-08-26 16:03 | disposition home or self-care (01) ==
LOC: HO.LAB 16:02
PROVIDERS: PCP Physician Assistant; Visit Provider Physician Assistant
DX: E87.6 Hypokalemia (principal); R68.82 Decreased libido
CPT/HCPCS: 36415; 80048; 84402; 84403

== ENCOUNTER 2020-09-07 13:59 | Outpatient (REF) | payer OTHER, SELFPAY ==
--- NOTE | ~2020-09-07 | US_ITS ---
EXAMINATION: US RETROPERITONEAL LIMITED (RENAL ONLY) CLINICAL INFORMATION: Cyst of the kidney, acquired. COMPARISON: None TECHNIQUE: Real-time imaging of the kidneys. FINDINGS: RIGHT KIDNEY: 10.5 x 5.2 x 5.4 cm (SAG x AP x TRV). The kidney is normal in size, contour, and echogenicity. Renal cortical thickness is normal. No calculi or focal parenchymal lesions. No hydronephrosis. LEFT KIDNEY: 11.8 x 5.3 x 4.6 cm (SAG x AP x TRV). The kidney is normal in size, contour, and echogenicity. Renal cortical thickness is normal. No calculi or focal parenchymal lesions. No hydronephrosis. US/US renal BI IMPRESSION: Unremarkable renal ultrasound.
[2020-09-07 15:30] LABS: Anion Gap 15 (12-20); Carbon Dioxide 28 mmol/L (22-29); Chloride 104 mmol/L (96-108); Potassium 3.7 mmol/L (3.3-5.1); Sodium 143 mmol/L (135-145)
== END 2020-09-07 14:00 | disposition home or self-care (01) ==
LOC: HO.US 13:59
PROVIDERS: PCP Physician Assistant; Referring Provider Physician Assistant; Visit Provider Physician Assistant
DX: N28.1 Cyst of kidney, acquired (principal); E87.6 Hypokalemia
CPT/HCPCS: 36415; 76775; 80051

== ENCOUNTER → 2020-09-16 15:41 | Outpatient (BNVA) | payer OTHER, SELFPAY | PROVIDERS: PCP Physician Assistant; Visit Provider Family Medicine Adult Medicine | DX: M47.816 Spondylosis without myelopathy or radiculopathy, lumbar region (principal) | CPT/HCPCS: 99212 ==

== ENCOUNTER 2020-10-07 14:03 | Outpatient (REF) | payer OTHER, SELFPAY ==
--- NOTE | ~2020-10-07 | CT_ITS ---
EXAMINATION: CT ABDOMEN AND PELVIS WITHOUT AND WITH CONTRAST CLINICAL INFORMATION: Abnormal liver function tests COMPARISON: Renal ultrasound 09/07/2020 TECHNIQUE: Multidetector volumetric imaging was performed of the abdomen and pelvis before and after the IV administration of 85 mL of Omnipaque 300 intravenous contrast. Sagittal and coronal reformatted images were obtained on the technologist's workstation. This CT examination was performed using dose optimization techniques as appropriate, variously including the following: *Automated exposure control *Adjustment of mA and/or kV according to patient size (this includes techniques or standardized protocols for targeted exams where dose is matched to indication/reason for exam; i.e. extremities or head) *Use of iterative reconstruction technique DLP: 1300 mGy-cm FINDINGS: LUNG BASES: The visualized lung bases are unremarkable. LIVER, GALLBLADDER, AND BILIARY TREE: There is severe fatty infiltration of the liver. The liver is enlarged. Liver is otherwise unremarkable. The gallbladder is unremarkable with no evidence of radiopaque gallstones, gallbladder wall thickening, or obvious pericholecystic inflammatory changes. PANCREAS: There is mild fatty infiltration of the pancreas. The pancreas is otherwise unremarkable. SPLEEN: Unremarkable ADRENAL GLANDS: Unremarkable KIDNEYS AND URETERS: There is a 5 mm low-attenuation lesion in the lower pole of the right kidney. No corresponding abnormality is seen ultrasound done the same day. Difficult to visualize without contrast. Hounsfield units postcontrast measure 25 not compatible with a simple cyst. Follow-up recommended. BLADDER: Not well evaluated due to artifact from bilateral hip replacements. GASTROINTESTINAL TRACT: The small and large bowel are unremarkable. The appendix is is not seen. ABDOMINAL WALL: No significant hernia is appreciated. LYMPH NODES: Normal VASCULAR: Unremarkable PELVIC VISCERA: Not seen due to artifact from bilateral hip replacements. OSSEOUS STRUCTURES: There is spondylolysis, mild grade 1 spondylolisthesis listhesis at L5-S1. There are mild degenerative changes of the spine. Lateral hip replacements. CT/CT abdomen pelvis wo/w con IMPRESSION: Enlarged fatty liver. 5 mm lesion in the lower pole of the right kidney. Difficult to definitively characterize this is not well seen on precontrast images. Postcontrast images are not suggestive of a simple cyst. 6 month follow-up renal imaging follow-up recommended.
[2020-10-07] MEDS: iohexoL 350 MG/ML 100 ML INFUS..BTL IV (15:00)
== END 2020-10-07 14:04 | disposition home or self-care (01) ==
LOC: HO.CT 14:03
PROVIDERS: PCP Physician Assistant; Visit Provider Internal Medicine
DX: R74.8 Abnormal levels of other serum enzymes (principal)
CPT/HCPCS: 74178; Q9967

== ENCOUNTER → 2020-10-14 11:32 | Outpatient (BNVA) | payer OTHER, SELFPAY | PROVIDERS: PCP Physician Assistant; Visit Provider Family Medicine Adult Medicine | DX: M47.816 Spondylosis without myelopathy or radiculopathy, lumbar region (principal); Z79.899 Other long term (current) drug therapy | CPT/HCPCS: 99212 ==

== ENCOUNTER 2020-10-29 12:03 | Outpatient (REF) | payer OTHER, SELFPAY | END 2020-10-29 12:04 | disposition home or self-care (01) | LOC: HO.LAB 12:03 | PROVIDERS: PCP Physician Assistant; Visit Provider Family Medicine Adult Medicine | DX: Z13.89 Encounter for screening for other disorder (principal) ==

== ENCOUNTER 2020-12-02 19:05 | Emergency (ER) | payer OTHER, SELFPAY ==
--- NOTE | ~2020-12-02 | CT_ITS ---
EXAMINATION: CT ABDOMEN AND PELVIS WITHOUT CONTRAST CLINICAL INFORMATION: Anasarca with jaundice COMPARISON: CT abdomen pelvis 10/07/2020 TECHNIQUE: Multidetector volumetric imaging was performed from the superior aspect of the liver through the pubic symphysis. Sagittal and coronal reformatted images were obtained on the technologist's workstation. This CT examination was performed using dose optimization techniques as appropriate, variously including the following: *Automated exposure control *Adjustment of mA and/or kV according to patient size (this includes techniques or standardized protocols for targeted exams where dose is matched to indication/reason for exam; i.e. extremities or head) *Use of iterative reconstruction technique DLP: 1033 mGy-cm FINDINGS: LUNG BASES: The visualized lung bases are unremarkable. LIVER, GALLBLADDER, AND BILIARY TREE: There is marked decreased attenuation of the liver consistent with hepatic steatosis. In terms of liver size, the liver appears smaller than previously noted at 17 cm where as previously this measured about 21 cm. No focal liver mass is seen. No bile duct dilatation is present. Of note, there is now moderate to large amount of ascites present whereas previously, no significant ascites was present. The gallbladder is contracted but otherwise unremarkable with no evidence of radiopaque gallstones, gallbladder wall thickening, or obvious pericholecystic inflammatory changes. PANCREAS: Fatty replacement of the pancreas which otherwise appears unremarkable. SPLEEN: Unremarkable. Spleen is not enlarged. ADRENAL GLANDS: Unremarkable. KIDNEYS AND URETERS: The kidneys are normal in size, shape, and attenuation. No hydronephrosis, hydroureter, or calculi seen. No perinephric stranding. BLADDER: Could not be assessed secondary to artifacts from bilateral hip prostheses GASTROINTESTINAL TRACT: The small and large bowel are unremarkable. The appendix is unremarkable. ABDOMINAL WALL: Marked anasarca is present. No significant hernia is appreciated. LYMPH NODES: Chest medial to the distal esophagus there is a rounded 2.7 cm area that measures fluid density and probably represents some loculated fluid rather than a lymph node or mass. VASCULAR: Calcific infrarenal and iliac plaque. No aneurysm. PELVIC VISCERA: Not well assessed secondary to hip prosthesis artifacts OSSEOUS STRUCTURES: Bilateral hip prostheses are present. Degenerative changes present in the spine most marked at L4-L5 with vacuum phenomenon. No bony destructive lesions seen. CT/CT abdomen pelvis wo con IMPRESSION: Marked hepatic steatosis with with new moderate to large volume ascites and anasarca
--- NOTE | ~2020-12-02 | XR_ITS ---
EXAMINATION: XR CHEST CLINICAL INFORMATION: Anasarca COMPARISON: Chest radiograph 07/07/2020 TECHNIQUE: Frontal view of the chest was obtained. FINDINGS: Lungs are mildly hypoinflated. Compared to the prior study, there is some ill-defined infiltrate in the right upper lobe. Left lung is clear. No effusions are seen. Heart size is normal. No evidence of CHF. XR/XR chest 1V IMPRESSION: Ill-defined patchy infiltrate right upper lobe
[2020-12-02 19:44] VITALS: BP 122/68; PULSE 109; RESP 16; TEMP 36.5; O2SAT 98; BMI 34.0
--- NOTE | 2020-12-02 21:30 | ED_ITS ---
HPI - General Adult General Chief complaint: Extremity Problem Stated complaint: Leg swelling Time Seen by Provider: 12/02/20 22:35 Source: patient Mode of arrival: ambulatory Limitations: no limitations History of Present Illness HPI narrative: 55-year-old male presents with bilateral lower extremity pain and swelling, jaundice to skin and eyes, engorged testicles, distended abdomen, and shortness of breath. Onset (ago): week(s) Location: chest, abdomen, genitals, left, right and lower extremity Radiation: non-radiation Severity: severe Quality: aching Pain Consistency: constant Relieving factors: none Exacerbating factors: movement Treatments prior to arrival: none Related Data Home Medications Medication Instructions Recorded Confirmed fluticasone 250 mcg-salmeterol 50 1 ea INHALATION BID 01/15/20 12/03/20 mcg/dose blistr powdr for inhalation carvedilol 6.25 mg tablet 1 tab PO DAILY 12/03/20 12/03/20 nystatin 100,000 unit/mL oral 4 ml PO DAILY PRN 12/03/20 12/03/20 suspension pravastatin 40 mg tablet 1 tab PO DAILY 12/03/20 12/03/20 Previous Rx's Medication Instructions Recorded furosemide 40 mg tablet 40 mg PO BID #60 cap 06/16/20 potassium chloride 20 mEq 20 meq PO DAILY 30 Days #30 tab 08/11/20 tablet,extended release(part/cryst) (Klor-Con M) gabapentin 300 mg capsule 300 mg PO Q8H 30 Days #90 cap 08/18/20 omeprazole 20 mg capsule,delayed 20 mg PO DAILY #30 cap 08/18/20 release mupirocin 2 % topical ointment 1 appl TOPICAL BID #22 g 09/19/20 azithromycin 250 mg tablet See Rx Instructions PO .COMPLEX #6 09/22/20 tab buprenorphine 20 mcg/hour weekly 1 patch TRANSDERMAL Q7D 28 Days #4 10/14/20 transdermal patch (Butrans) ea buprenorphine 8 mg-naloxone 2 mg 1 film BUCCAL Q24H 30 Days #30 ea 10/14/20 sublingual film ibuprofen 800 mg tablet 800 mg PO Q6H #28 cap 10/25/20 albuterol sulfate 90 mcg/actuation 2 puff INHALATION Q6H PRN #18 g 10/26/20 aerosol inhaler (Ventolin HFA) clonazepam 1 mg tablet 1 mg PO DAILY 30 Days #30 tab 11/20/20 lactulose 20 gram/30 mL oral 20 g PO BID #1500 ml 12/03/20 solution levofloxacin 500 mg tablet 500 mg PO Q24H #7 tab 12/03/20 magnesium 200 mg tablet 400 mg PO DAILY 3 Days #6 tab 12/03/20 Allergies Allergy/AdvReac Type Severity Reaction Status Date / Time lisinopril Allergy Unknown ? kidney Verified 10/14/20 11:56 issue possible r/t to this med Review of Systems Review of Systems: Constitutional: No Fever, No Chills ENT/Mouth: No Ear Pain, No Hoarseness, No sore throat Eyes: No Eye Pain, No Swelling, No Redness, No Foreign Body Cardiovascular: No Chest Pain, positive SOB Respiratory: No Cough, positive Dyspnea Gastrointestinal: Positive Nausea, No Vomiting, No Diarrhea, positive abdominal Pain Genitourinary: Positive testicular enlargement, No Dysuria, No Hematuria Musculoskeletal: No joint pain, No Myalgias, No Joint Swelling Skin: Positive jaundice, No Skin lacerations, No rash Neuro: No Weakness, No Numbness, No Paresthesias, No Loss of Consciousness, No Dizziness, No Headache Psych: No Anxiety/Panic, No Depression Heme/Lymph: no easy bruising, no Lymphadenopathy Endocrine: No Polyuria, No Polydipsia Yes all other systems are reviewed and are negative [facility] Past Medical History Attestation statement: The following information was validated with the patient. Source: old records reviewed Medical History Anemia Avascular necrosis of bone Cardiomyopathy CHF (congestive heart failure) History of avascular necrosis of capital femoral epiphysis Hypogonadism Lumbar spondylosis Obesity Sinus tachycardia Spondylosis Surgical History History of hand surgery Hx of bilateral hip replacements Family History Family History Father Heart problem CVD (cardiovascular disease) Myocardial infarction Mother No problems noted. Daughter In good health Son In good health Sister In good health Social History Social History Household Members Other:: Lives with mom Alcohol intake: current Alcohol intake frequency: holidays/special occasions only Patient Tobacco Use Status: Current everyday Tobacco user Tobacco use type: Cigarette Cigarette Packs Per Day: 0.5 Use of substances other than those prescribed or required for medical reasons: No Substance Use Type: Marijuana Advance Directives: No Physical Exam Vital Signs: Vital Signs: Last Vital Signs Temp 97.9 F 12/02/20 22:41 Pulse 96 12/03/20 00:55 Resp 20 12/03/20 00:55 BP 129/76 12/03/20 00:55 Pulse Ox 97 12/02/20 22:41 Body Mass Index 34.0 Appearance: Alert. Oriented X3. No acute distress. Eyes: Pupils equal, round and reactive to light. Sclera icteric. ENT: Pharynx normal. Moist mucous membranes. Neck: Normal inspection. Neck supple. CVS: Tachycardic heart rate and rhythm. Pulses normal. Respiratory: No respiratory distress. Diminished lung sounds. Abdomen: Hard, diffusely tender, pitting edema noted to the abdomen. Skin: Skin warm and dry. Jaundiced. Normal skin turgor. Extremities: +4 pitting edema to all extremities and abdomen. Neuro: No motor deficit. No sensory deficit. Cranial nerves 2-12 intact. Course Course Course Narrative: 55-year-old male presents with anasarca, jaundice, and shortness of breath. Patient has not been taking his Lasix as prescribed, does drink alcohol on daily basis, and has alcoholic cirrhosis. Patient stated that he has not been jaundice in the past. CT scan of abdomen pelvis indicate anasarca and ascites, and right upper lobe pneumonia. I did discuss findings with patient and recommended admission. Discussion with hospitalist. 12:35 a.m. discussed case with hospitalist, patient does not want to be admitted and would like to leave against medical advice. He does understand that he can return at any time. Multiple interactions with this ACCOUNTING ADMINISTRATIVE ASSISTANT as well as hospitalist and RN regarding risks and benefits of leaving, patient is alert oriented x4, verbalizes risks of leaving including . Consultations Consultation #1: Renetta Time: 12:10 Consultation #2: Jose via tiger text Time: 12:47 Medical Decision Making Differential Diagnosis Differential Diagnosis: cirrhosis, anasarca, ascites, CHF Medical Records Medical records reviewed: Yes I reviewed the patient's medical records. Lab Data Lab results reviewed: Yes I reviewed the patient's lab results. Result diagrams: 12/02/20 22:19 12/02/20 22:19 Labs: Lab Results 12/02/20 12/02/20 12/02/20 Range/Units 22:19 22:19 22:19 WBC 11.8 H (4.8-10.8) X10*3/uL RBC 2.79 L (4.60-5.80) X10*6/uL Hgb 9.6 L (14.0-18.0) g/dl Hct 28.3 L (42-52) % MCV 101.4 H (80-98) fL MCH 34.4 H (27.0-33.0) pg MCHC 33.9 (31.0-36.0) g/dl RDW 18.2 H (11.0-16.0) % Plt Count 155 L (160-400) X10*3/uL MPV 10.1 (9.4-12.4) fL Immature Gran % (Auto) 0.7 H (0.0-0.4) % Neut % (Auto) 63.9 (45-73) % Lymph % (Auto) 23.2 (20-40) % [place] % (Auto) 11.3 H (2-11) % Eos % (Auto) 0.7 (0-4) % Baso % (Auto) 0.2 (0-2) % Lymph # (Auto) 2.7 (1.2-4.9) X10*3/uL [place] # (Auto) 1.3 H (0.1-1.2) X10*3/uL Eos # (Auto) 0.1 (0.0-0.4) X10*3/uL Baso # (Auto) 0.0 (0.0-0.2) X10*3/uL Abs Immat Gran (auto) 0.08 H (0.00-0.03) X10*3/uL Absolute Neuts (auto) 7.6 (2.0-8.3) X10*3/uL Absolute Nucleated RBC 0.000 (0.0-0.012) X10*3/uL Nucleated RBC % (auto) 0.0 (0.0-0.2) /100WBC PT 10.8 (9.9-13.0) SEC INR 1.0 (0.9-1.1) APTT 28.3 (24.1-38.0) SEC Sodium 139 (135-145) mmol/L Potassium 3.0 L D (3.3-5.1) mmol/L Chloride 101 (96-108) mmol/L Carbon Dioxide 28 (22-29) mmol/L Anion Gap 13 (12-20) BUN 18 H (9-16) mg/dL Creatinine 1.03 (0.5-1.4) mg/dL Estim Creat Clear Calc 98.7 Estimated GFR > 60 Random Glucose 100 (60-115) mg/dL Calcium 8.0 L (8.4-10.2) mg/dL Magnesium 1.3 L* (1.6-2.6) mg/dL Total Bilirubin 5.1 H (0.0-1.0) mg/dL Direct Bilirubin 3.3 H (0.0-0.5) mg/dL AST 88 H (5-37) U/L ALT 52 H (0-40) U/L Alkaline Phosphatase 206 H D (39-117) U/L Ammonia (13-55) umol/L Troponin I High Sens (<3.5-35.0) ng/L B-Natriuretic Peptide (<100) pg/mL Total Protein 5.9 L (6.5-8.0) g/dL Albumin 2.4 L (3.5-5.0) g/dL Lipase 61 (8-78) U/L Urine Color Urine Appearance Urine pH (5.0-8.0) Ur Specific [place] (1.005-1.025) Urine Protein (NEG-TRACE) MG/DL Urine Glucose (UA) (NEG) MG/DL Urine Ketones (NEG) MG/DL Urine Blood (NEG) Urine Nitrite (NEG) Ur Leukocyte Esterase (NEG) Ethyl Alcohol mg/dL Coronavirus (PCR) (Negative) Influenza Type A (PCR) (Negative) Influenza Type B (PCR) (Negative) RSV RNA Qual (PCR) (Negative) 12/02/20 12/02/20 12/02/20 Range/Units 22:19 22:19 22:19 WBC (4.8-10.8) X10*3/uL RBC (4.60-5.80) X10*6/uL Hgb (14.0-18.0) g/dl Hct (42-52) % MCV (80-98) fL MCH (27.0-33.0) pg MCHC (31.0-36.0) g/dl RDW (11.0-16.0) % Plt Count (160-400) X10*3/uL MPV (9.4-12.4) fL Immature Gran % (Auto) (0.0-0.4) % Neut % (Auto) (45-73) % Lymph % (Auto) (20-40) % [place] % (Auto) (2-11) % Eos % (Auto) (0-4) % Baso % (Auto) (0-2) % Lymph # (Auto) (1.2-4.9) X10*3/uL [place] # (Auto) (0.1-1.2) X10*3/uL Eos # (Auto) (0.0-0.4) X10*3/uL Baso # (Auto) (0.0-0.2) X10*3/uL Abs Immat Gran (auto) (0.00-0.03) X10*3/uL Absolute Neuts (auto) (2.0-8.3) X10*3/uL Absolute Nucleated RBC (0.0-0.012) X10*3/uL Nucleated RBC % (auto) (0.0-0.2) /100WBC PT (9.9-13.0) SEC INR (0.9-1.1) APTT (24.1-38.0) SEC Sodium (135-145) mmol/L Potassium (3.3-5.1) mmol/L Chloride (96-108) mmol/L Carbon Dioxide (22-29) mmol/L Anion Gap (12-20) BUN (9-16) mg/dL Creatinine (0.5-1.4) mg/dL Estim Creat Clear Calc Estimated GFR Random Glucose (60-115) mg/dL Calcium (8.4-10.2) mg/dL Magnesium (1.6-2.6) mg/dL Total Bilirubin (0.0-1.0) mg/dL Direct Bilirubin (0.0-0.5) mg/dL AST (5-37) U/L ALT (0-40) U/L Alkaline Phosphatase (39-117) U/L Ammonia 113 H (13-55) umol/L Troponin I High Sens 4.1 (<3.5-35.0) ng/L B-Natriuretic Peptide 77 (<100) pg/mL Total Protein (6.5-8.0) g/dL Albumin (3.5-5.0) g/dL Lipase (8-78) U/L Urine Color Urine Appearance Urine pH (5.0-8.0) Ur Specific [place] (1.005-1.025) Urine Protein (NEG-TRACE) MG/DL Urine Glucose (UA) (NEG) MG/DL Urine Ketones (NEG) MG/DL Urine Blood (NEG) Urine Nitrite (NEG) Ur Leukocyte Esterase (NEG) Ethyl Alcohol < 10 mg/dL Coronavirus (PCR) (Negative) Influenza Type A (PCR) (Negative) Influenza Type B (PCR) (Negative) RSV RNA Qual (PCR) (Negative) 12/02/20 12/03/20 Range/Units 22:46 00:32 WBC (4.8-10.8) X10*3/uL RBC (4.60-5.80) X10*6/uL Hgb (14.0-18.0) g/dl Hct (42-52) % MCV (80-98) fL MCH (27.0-33.0) pg MCHC (31.0-36.0) g/dl RDW (11.0-16.0) % Plt Count (160-400) X10*3/uL MPV (9.4-12.4) fL Immature Gran % (Auto) (0.0-0.4) % Neut % (Auto) (45-73) % Lymph % (Auto) (20-40) % [place] % (Auto) (2-11) % Eos % (Auto) (0-4) % Baso % (Auto) (0-2) % Lymph # (Auto) (1.2-4.9) X10*3/uL [place] # (Auto) (0.1-1.2) X10*3/uL Eos # (Auto) (0.0-0.4) X10*3/uL Baso # (Auto) (0.0-0.2) X10*3/uL Abs Immat Gran (auto) (0.00-0.03) X10*3/uL Absolute Neuts (auto) (2.0-8.3) X10*3/uL Absolute Nucleated RBC (0.0-0.012) X10*3/uL Nucleated RBC % (auto) (0.0-0.2) /100WBC PT (9.9-13.0) SEC INR (0.9-1.1) APTT (24.1-38.0) SEC Sodium (135-145) mmol/L Potassium (3.3-5.1) mmol/L Chloride (96-108) mmol/L Carbon Dioxide (22-29) mmol/L Anion Gap (12-20) BUN (9-16) mg/dL Creatinine (0.5-1.4) mg/dL Estim Creat Clear Calc Estimated GFR Random Glucose (60-115) mg/dL Calcium (8.4-10.2) mg/dL Magnesium (1.6-2.6) mg/dL Total Bilirubin (0.0-1.0) mg/dL Direct Bilirubin (0.0-0.5) mg/dL AST (5-37) U/L ALT (0-40) U/L Alkaline Phosphatase (39-117) U/L Ammonia (13-55) umol/L Troponin I High Sens (<3.5-35.0) ng/L B-Natriuretic Peptide (<100) pg/mL Total Protein (6.5-8.0) g/dL Albumin (3.5-5.0) g/dL Lipase (8-78) U/L Urine Color DK YELLOW Urine Appearance CLEAR Urine pH 6.0 (5.0-8.0) Ur Specific [place] 1.015 (1.005-1.025) Urine Protein NEG (NEG-TRACE) MG/DL Urine Glucose (UA) NEG (NEG) MG/DL Urine Ketones NEG (NEG) MG/DL Urine Blood NEG (NEG) Urine Nitrite NEG (NEG) Ur Leukocyte Esterase NEG (NEG) Ethyl Alcohol mg/dL Coronavirus (PCR) NEGATIVE (Negative) Influenza Type A (PCR) NEGATIVE (Negative) Influenza Type B (PCR) NEGATIVE (Negative) RSV RNA Qual (PCR) NEGATIVE (Negative) Imaging Data CT scan - abdomen: Attestation: I personally reviewed and interpreted this imaging study as follows: Radiologist's impression: FINDINGS: LUNG BASES: The visualized lung bases are unremarkable.? LIVER, GALLBLADDER, AND BILIARY TREE: There is marked decreased attenuation of the liver consistent with hepatic steatosis. In terms of liver size, the liver appears smaller than previously noted at 17 cm where as previously this measured about 21 cm. No focal liver mass is seen. No bile duct dilatation is present. Of note, there is now moderate to large amount of ascites present whereas previously, no significant ascites was present. The gallbladder is contracted but otherwise unremarkable with no evidence of radiopaque gallstones, gallbladder wall thickening, or obvious pericholecystic inflammatory changes.? PANCREAS: Fatty replacement of the pancreas which otherwise appears unremarkable.? SPLEEN: Unremarkable. Spleen is not enlarged. ADRENAL GLANDS: Unremarkable.? KIDNEYS AND URETERS: The kidneys are normal in size, shape, and attenuation. No hydronephrosis, hydroureter, or calculi seen. No perinephric stranding. ? BLADDER: Could not be assessed secondary to artifacts from bilateral hip prostheses? GASTROINTESTINAL TRACT: The small and large bowel are unremarkable. The appendix is unremarkable.? ABDOMINAL WALL: Marked anasarca is present. No significant hernia is appreciated.? LYMPH NODES: Chest medial to the distal esophagus there is a rounded 2.7 cm area that measures fluid density and probably represents some loculated fluid rather than a lymph node or mass. VASCULAR: Calcific infrarenal and iliac plaque. No aneurysm. PELVIC VISCERA: Not well assessed secondary to hip prosthesis artifacts ? OSSEOUS STRUCTURES: Bilateral hip prostheses are present. Degenerative changes present in the spine most marked at L4-L5 with vacuum phenomenon. No bony destructive lesions seen.? CT/CT abdomen pelvis wo con IMPRESSION: Marked hepatic steatosis with with new moderate to large volume ascites and anasarca? ECG Data Attestation: I personally reviewed and interpreted this ECG as follows: Prior ECG tracings: available for review Interpretation: Vent. rate 101 BPM SC interval 150 ms QRS duration 86 ms QT/QTc 308/399 ms P-R-T axes 50 12 24 Sinus tachycardia Low voltage QRS Cannot rule out Inferior infarct , age undetermined Cannot rule out Anterior infarct , age undetermined Abnormal ECG When compared with ECG of 07-JUL-2020 17:21, Nonspecific T wave abnormality now evident in Inferior leads Nonspecific T wave abnormality now evident in Anterolateral leads 02-DEC-2020 21:51:21 Critical Care Time Critical Care Time Critical Care Time: Yes Total Critical Care Time: 65 Attestation: I have personally provided critical care time exclusive of time spent on separately billable procedures. Time includes review of laboratory data, radiology results, discussion with consultants, and monitoring for potential decompensation. Interventions were performed as documented. Discharge Plan Discharge Clinical Impression: Anasarca, Increased ammonia level Pneumonia Qualifiers: Pneumonia type: due to unspecified organism Laterality: right Lung location: upper lobe of lung Qualified Code(s): J18.9 - Pneumonia, unspecified organism Ascites Qualifiers: Ascites type: due to alcoholic cirrhosis Qualified Code(s): K70.31 - Alcoholic cirrhosis of liver with ascites Patient Disposition: Left Against Medical Advice Additional Instructions: You are leaving against medical advice. You are welcome to return at any time. You must follow-up with Cardiology, your primary care physician, and Gastroenterology. Please take lactulose to help decrease ammonia levels. You do have pneumonia, please take Levaquin 500 mg daily for the next 5 days. You do have fluid overload, please continue to take your Lasix. You must follow-up with Cardiology for Lasix dosage. You need a paracentesis. You have excessive fluid buildup due to alcoholic cirrhosis. Your magnesium levels are low. Please take magnesium 400 mg tomorrow. Thank you for choosing this emergency department for evaluation. Please follow-up with primary care physician as needed. Return to the emergency department for any new, concerning, or worsening symptoms. Prescriptions: New levofloxacin 500 mg tablet 500 mg PO Q24H Qty: 7 RF: 0 lactulose 20 gram/30 mL solution 20 g PO BID Qty: 1500 RF: 0 magnesium 200 mg tablet 400 mg PO DAILY 3 Days Qty: 6 RF: 0 No Action furosemide 40 mg tablet 40 mg PO BID Qty: 60 RF: 3 potassium chloride [Klor-Con M20] 20 mEq tablet,ER particles/crystals 20 meq PO DAILY 30 Days Qty: 30 RF: 0 omeprazole 20 mg capsule,delayed release(DR/EC) 20 mg PO DAILY Qty: 30 RF: 3 mupirocin 2 % ointment 1 appl topical BID Qty: 22 RF: 0 azithromycin 250 mg tablet See Rx Instructions PO .COMPLEX Qty: 6 RF: 0 ibuprofen 800 mg tablet 800 mg PO Q6H Qty: 28 RF: 2 albuterol sulfate [Ventolin HFA] 90 mcg/actuation HFA aerosol inhaler 2 puff inhalation Q6H PRN (Reason: shortness of breath or wheezing) Qty: 18 RF: 5 clonazepam 1 mg tablet 1 mg PO DAILY 30 Days Qty: 30 RF: 0 nystatin 100,000 unit/mL suspension 4 ml PO DAILY PRN (Reason: candidiasis) RF: 0 carvedilol 6.25 mg tablet 1 tab PO DAILY RF: 0 pravastatin 40 mg tablet 1 tab PO DAILY RF: 0 buprenorphine [Butrans] 20 mcg/hour patch weekly 1 patch transdermal Q7D 28 Days Qty: 4 RF: 1 buprenorphine-naloxone 8-2 mg film 1 film buccal Q24H 30 Days Qty: 30 RF: 0 fluticasone propion-salmeterol 250-50 mcg/dose blister with device 1 ea inhalation BID RF: 0 gabapentin 300 mg capsule 300 mg PO Q8H 30 Days Qty: 90 RF: 1 Stand Alone Forms: Against Medical Advice Discharge Date/Time: 12/03/20 01:08
--- NOTE | 2020-12-02 21:30 | ECG_ITS ---
Test Reason : GENERAL MEDICAL Blood Pressure : / mmHG Vent. Rate : 101 BPM Atrial Rate : 101 BPM P-R Int : 150 ms QRS Dur : 086 ms QT Int : 308 ms P-R-T Axes : 050 012 024 degrees QTc Int : 399 ms Sinus tachycardia Low voltage QRS Cannot rule out Inferior infarct , age undetermined Cannot rule out Anterior infarct , age undetermined Abnormal ECG When compared with ECG of 07-JUL-2020 17:21, Nonspecific T wave abnormality now evident in Inferior leads Nonspecific T wave abnormality now evident in Anterolateral leads Referred By: Yumiko Arriaga Electronically Signed By:GRAHAM ESCOBEDO
[2020-12-02 22:29] LABS: MANUAL DIFF FLAG NO
[2020-12-02 22:30] LABS: Basophils Percent Auto 0.2 % (0-2); Eosinophils Absolute Auto 0.1 X10*3/uL (0.0-0.4); Eosinophils Percent Auto 0.7 % (0-4); Hematocrit 28.3 % (42-52); Hemoglobin 9.6 g/dl (14.0-18.0); Imm Gran Abs Auto 0.08 X10*3/uL (0.00-0.03); Imm Gran Pct Auto 0.7 % (0.0-0.4); Lymphocytes Absolute Auto 2.7 X10*3/uL (1.2-4.9); Lymphocytes Percent Auto 23.2 % (20-40); Mean Corpuscular HGB Conc 33.9 g/dl (31.0-36.0); Mean Corpuscular Hemoglobin 34.4 pg (27.0-33.0); Mean Corpuscular Volume 101.4 fL (80-98); Mean Platelet Volume 10.1 fL (9.4-12.4); Monocytes Absolute Auto 1.3 X10*3/uL (0.1-1.2); Monocytes Percent Auto 11.3 % (2-11); Neutrophils Absolute Auto 7.6 X10*3/uL (2.0-8.3); Neutrophils Percent Auto 63.9 % (45-73); Platelet Count 155 X10*3/uL (160-400); Red Blood Count 2.79 X10*6/uL (4.60-5.80); Red Cell Distribution Width 18.2 % (11.0-16.0); White Blood Count 11.8 X10*3/uL (4.8-10.8)
[2020-12-02 22:37] LABS: Ammonia 113 umol/L (13-55)
[2020-12-02 22:41] VITALS: BP 125/79; PULSE 99; RESP 16; TEMP 36.6; O2SAT 97
[2020-12-02 22:42] LABS: Ethanol < 10 mg/dL
[2020-12-02 22:48] LABS: Prothrombin Time 10.8 SEC (9.9-13.0); Troponin-I High Sensitivity 4.1 ng/L (<3.5-35.0)
[2020-12-02 22:50] LABS: Partial Thromboplastin Time 28.3 SEC (24.1-38.0)
[2020-12-02 22:52] LABS: Alanine Aminotransferase 52 U/L (0-40); Albumin Level 2.4 g/dL (3.5-5.0); Alkaline Phosphatase 206 U/L (39-117); Anion Gap 13 (12-20); Aspartate Amino Transferase 88 U/L (5-37); Bilirubin Direct 3.3 mg/dL (0.0-0.5); Bilirubin Total 5.1 mg/dL (0.0-1.0); Blood Urea Nitrogen 18 mg/dL (9-16); Carbon Dioxide 28 mmol/L (22-29); Chloride 101 mmol/L (96-108); Creatinine Clr Calc Pharmacy 98.7; Estimated Glomerular Filt Rate > 60; Glucose Random 100 mg/dL (60-115); Lipase 61 U/L (8-78); Sodium 139 mmol/L (135-145); Total Protein 5.9 g/dL (6.5-8.0)
[2020-12-02 23:00] LABS: Magnesium 1.3 mg/dL (1.6-2.6)
[2020-12-02 23:06] LABS: Appearance Urine CLEAR; Color Urine DK YELLOW; Glucose Urine UA NEG (NEG); Leukocyte Esterase Urine NEG (NEG); Nitrite Urine NEG (NEG); Specific Gravity - Urine 1.015 (1.005-1.025); Urine Blood NEG (NEG); Urine Ketones NEG (NEG); Urine Protein NEG (NEG-TRACE)
[2020-12-03 00:21] LABS: B Type Natriuretic Peptide 77 pg/mL (<100)
--- NOTE | 2020-12-03 00:36 | PC.NURSE ---
ER provider and Hospitalist in to discuss plan of care. Pt refusing to be admitted after multiple attempts to convince pt to stay. pt wants to go home against medical advice. Labs drawn and medication given pt May.
[2020-12-03] MEDS: Azithromycin 500 MG TABLET PO (00:46)
[2020-12-03] MEDS: Lactulose 20 GM/30 ML SOLUTION 30 GM PO (00:46)
--- NOTE | 2020-12-03 00:46 | PM.EVENT ---
Event Note Date of Service: 12/03/20 Event Note: Was asked see and admit this 55-year-old male who presented to the hospital with complaints of swelling in his abdomen and lower extremities. Evaluation in the ED revealed a in the L4 trait on chest x-ray as well as elevated LFTs, bili, and evidence of ascites on CT abdomen as well as liver steatosis. Patient also has elevated ammonia with no increased confusion or encephalopathy. Patient has history of CHF, and reports that he has not been taking Lasix for a couple weeks due to hypotension, he says that he restarted taking 40 mg of daily Lasix last week but has been noncompliant with a low-salt diet. He denies having any shortness of breath and no chest pain, no abdominal pain, no f fever or chills. I. Agreed to admit the patient after reviewing his chart, on interviewing patient, he is refusing to stay. Report says that he does go as he case with Cardiology outpatient tomorrow, would like to take his p.o. Lasix and reduce his salt intake, and was take p.o. antibiotics for his pneumonia seen on the chest x-ray. I extensively discussed the reasons for admission and his high risk of worsening clinical status but patient is refusing to stay and would like to go home. I recommended to the ED PA to call Dr. Garcia and ask for any recommendation in regards to his Lasix. Patient has no hypoxia. Appears hemodynamically stable, and comfortable. Patient will be leaving against medical advice from the ED before admission
[2020-12-03] MEDS: Furosemide 40 MG TABLET 80 MG PO (00:53)
[2020-12-03] MEDS: Magnesium Oxide 400 MG TABLET 800 MG PO (00:54)
[2020-12-03 00:55] VITALS: BP 129/76; PULSE 96; RESP 20
[2020-12-03 01:18] LABS: Influenza A PCR NEGATIVE (Negative); Influenza B PCR NEGATIVE (Negative); Resp Syncy Virus RNA Qual PCR NEGATIVE (Negative); SARS COV2 PCR INHOUSE NEGATIVE (Negative)
== END 2020-12-03 01:08 | disposition left against medical advice (07) ==
PROVIDERS: Nurse Practitioner Family; Emergency Provider Student in an Organized Health Care Education/Training Program; PCP Physician Assistant
DX: R60.1 Generalized edema (principal); R79.89 Other specified abnormal findings of blood chemistry; K70.31 Alcoholic cirrhosis of liver with ascites; J18.9 Pneumonia, unspecified organism; Z20.822 Contact with and (suspected) exposure to COVID-19; M79.662 Pain in left lower leg; M79.661 Pain in right lower leg; M79.89 Other specified soft tissue disorders; R06.02 Shortness of breath; F17.210 Nicotine dependence, cigarettes, uncomplicated; F12.90 Cannabis use, unspecified, uncomplicated; I10 Essential (primary) hypertension
CPT/HCPCS: 0241U; 36415; 71045; 74176; 80048; 80076; 81003; 82077; 82140; 83690; 83735; 83880; 84484; 85025; 85610; 85730; 93005; 96365; 96375; 99284; 99291

== ENCOUNTER → 2021-01-17 14:30 | Outpatient (BNVA) | payer OTHER, SELFPAY | PROVIDERS: PCP Physician Assistant; Referring Provider Physician Assistant; Visit Provider Internal Medicine | DX: I42.9 Cardiomyopathy, unspecified (principal); R00.0 Tachycardia, unspecified | CPT/HCPCS: 99212 ==

== ENCOUNTER → 2021-03-22 13:04 | Outpatient (BNVA) | payer OTHER, SELFPAY | PROVIDERS: PCP Physician Assistant; Referring Provider Physician Assistant; Visit Provider Internal Medicine Gastroenterology | CPT/HCPCS: Q3014 ==

== ENCOUNTER 2021-04-07 15:31 | Outpatient (REF) | payer OTHER, SELFPAY ==
[2021-04-07 16:12] LABS: MANUAL DIFF FLAG NO
[2021-04-07 16:14] LABS: Basophils Percent Auto 0.5 % (0-2); Eosinophils Absolute Auto 0.1 X10*3/uL (0.0-0.4); Eosinophils Percent Auto 1.5 % (0-4); Hematocrit 22.9 % (42.0-52.0); Hemoglobin 7.5 g/dl (14.0-18.0); Imm Gran Abs Auto 0.01 X10*3/uL (0.00-0.03); Imm Gran Pct Auto 0.2 % (0.0-0.4); Lymphocytes Absolute Auto 1.4 X10*3/uL (1.2-4.9); Lymphocytes Percent Auto 33.7 % (20-40); Mean Corpuscular HGB Conc 32.8 g/dl (31.0-36.0); Mean Corpuscular Hemoglobin 31.3 pg (27.0-33.0); Mean Corpuscular Volume 95.4 fL (80.0-98.0); Mean Platelet Volume 10.3 fL (9.4-12.4); Monocytes Absolute Auto 0.3 X10*3/uL (0.1-1.2); Monocytes Percent Auto 8.4 % (2-11); Neutrophils Absolute Auto 2.3 x10*3/uL (2.0-8.3); Neutrophils Percent Auto 55.7 % (45-73); Platelet Count 124 X10*3/uL (160-400)
[2021-04-07 16:27] LABS: INTERNATIONAL NORM RATIO 1.4 (0.9-1.1); Prothrombin Time 15.7 SEC (9.9-13.0)
[2021-04-07 16:33] LABS: Alanine Aminotransferase 15 U/L (0-40); Albumin Level 1.9 g/dL (3.5-5.0); Alkaline Phosphatase 135 U/L (39-117); Anion Gap 10 (12-20); Aspartate Amino Transferase 50 U/L (5-37); Bilirubin Total 1.9 mg/dL (0.0-1.0); Blood Urea Nitrogen 13 mg/dL (9-16); Calcium 7.7 mg/dL (8.4-10.2); Carbon Dioxide 31 mmol/L (22-29); Chloride 100 mmol/L (96-108); Estimated Glomerular Filt Rate 39; Glucose Random 145 mg/dL (60-115); Iron 94 mcg/dL (45-160); Potassium 2.6 mmol/L (3.3-5.1); Sodium 138 mmol/L (135-145); Total Iron Binding Capacity < 111 mcg/dL (228-428); Total Protein 7.2 g/dL (6.5-8.0); Unsaturated Iron Binding < 17 ug/dL
[2021-04-07 16:42] LABS: Lactate Dehydrogenase 186 U/L (118-273)
[2021-04-07 16:56] LABS: Vitamin D 25-OH Total 10.7 ng/mL (>30)
[2021-04-07 17:03] LABS: Ferritin 480 ng/mL (20-250)
[2021-04-07 17:04] LABS: Folate 10.8 ng/mL (> or = 4.0); Vitamin B12 772 pg/mL (200-900)
[2021-04-08 08:34] LABS: HBc Num1 1.93 S/CO (0.00-0.79); ~HepC Num1 0.56 S/CO (0.00-0.79); ~Hepatitis C Antibody Nonreactive (Nonreactive)
[2021-04-08 08:55] LABS: HBsAGNum1 0.29 S/CO (0.00-0.99); Hepatitis B Surface Antigen Negative (Negative); ~Hepatitis A Antibody IgM Nonreactive (Nonreactive); ~Hepatitis B Surface Antibody NONREACTIVE (Nonreactive)
[2021-04-08 09:47] LABS: HBc Num2 1.72 S/CO; HBc Num3 1.55 S/CO; Hepatitis B Core Antibody Reactive (Nonreactive)
[2021-04-09 07:22] LABS: Gliadin Deamidated IgA Ab <1.0 U/mL; Gliadin Deamidated IgG Ab <1.0 U/mL; Transglutaminase Ab IgG <1.0 U/mL; Transglutaminase IgA <1.0 U/mL
[2021-04-09 12:17] LABS: Anti Nuclear Antibody Screen NEGATIVE (NEGATIVE)
[2021-04-09 12:42] LABS: Hepatitis B Core Antibody IgM NON-REACTIVE (NON-REACTIVE)
[2021-04-11 13:12] LABS: Smooth Muscle Antibody <20 U (<20)
[2021-04-12 06:56] LABS: Alpha 1 Anti-trypsin 127 mg/dL (83-199); Ceruloplasmin 36 mg/dL (18-36); Haptoglobin 42 mg/dL (43-212)
[2021-04-12 11:31] LABS: Immunoglobulin G 3207 mg/dL (600-1640)
[2021-04-12 12:17] LABS: Soluble Liver Ag Autoantibody <20.1 U (0.0-20.0)
[2021-04-13 01:52] LABS: Zinc 26 mcg/dL (60-130)
[2021-04-13 14:27] LABS: Vitamin A <5 mcg/dL (38-98)
[2021-04-13 15:55] LABS: Mitochondrial Antibodies NEGATIVE (NEGATIVE)
== END 2021-04-07 15:32 | disposition home or self-care (01) ==
LOC: HO.XRAY 15:31
PROVIDERS: Absent Provider Physician Assistant; PCP Physician Assistant; Visit Provider Internal Medicine Gastroenterology
DX: K52.839 Microscopic colitis, unspecified (principal); R79.82 Elevated C-reactive protein (CRP); D53.9 Nutritional anemia, unspecified; K74.60 Unspecified cirrhosis of liver; R79.89 Other specified abnormal findings of blood chemistry; K75.81 Nonalcoholic steatohepatitis (NASH); F11.20 Opioid dependence, uncomplicated; R10.33 Periumbilical pain; G89.29 Other chronic pain
CPT/HCPCS: 36415; 80053; 82103; 82306; 82390; 82607; 82728; 82746; 82784; 83010; 83520; 83540; 83615; 84590; 84630; 85025; 85610; 86015; 86038; 86039; 86255; 86256; 86258; 86364; 86704; 86705; 86706; 86709; 86803; 87340

== ENCOUNTER 2021-04-18 12:07 | Outpatient (REF) | payer OTHER, SELFPAY ==
[2021-04-18 12:48] LABS: Anion Gap 11 (12-20); Blood Urea Nitrogen 17 mg/dL (9-16); Calcium 7.5 mg/dL (8.4-10.2); Carbon Dioxide 27 mmol/L (22-29); Chloride 101 mmol/L (96-108); Estimated Glomerular Filt Rate 22; Glucose Random 85 mg/dL (60-115); Potassium 3.9 mmol/L (3.3-5.1); Sodium 135 mmol/L (135-145)
== END 2021-04-18 12:08 | disposition home or self-care (01) ==
LOC: HO.MDS 12:07
PROVIDERS: Visit Provider Internal Medicine Gastroenterology
DX: D64.9 Anemia, unspecified (principal)
CPT/HCPCS: 36415; 36430; 80048; 86850; 86900; 86901; 86920; P9016

== ENCOUNTER 2021-04-28 16:06 | Outpatient (REF) | payer OTHER, SELFPAY ==
[2021-04-28 16:23] LABS: MANUAL DIFF FLAG NO
[2021-04-28 16:28] LABS: Basophils Percent Auto 0.5 % (0-2); Eosinophils Absolute Auto 0.1 X10*3/uL (0.0-0.4); Eosinophils Percent Auto 2.8 % (0-4); Imm Gran Abs Auto 0.01 X10*3/uL (0.00-0.03); Imm Gran Pct Auto 0.3 % (0.0-0.4); Lymphocytes Absolute Auto 1.6 X10*3/uL (1.2-4.9); Lymphocytes Percent Auto 41.2 % (20-40); Mean Corpuscular HGB Conc 33.5 g/dl (31.0-36.0); Mean Corpuscular Hemoglobin 32.4 pg (27.0-33.0); Mean Corpuscular Volume 96.7 fL (80.0-98.0); Mean Platelet Volume 11.6 fL (9.4-12.4); Monocytes Absolute Auto 0.4 X10*3/uL (0.1-1.2); Monocytes Percent Auto 9.4 % (2-11); Neutrophils Absolute Auto 1.8 x10*3/uL (2.0-8.3); Neutrophils Percent Auto 45.8 % (45-73); Red Cell Distribution Width 16.5 % (11.0-16.0); White Blood Count 3.9 X10*3/uL (4.8-10.8)
[2021-04-28 16:49] LABS: Alanine Aminotransferase 24 U/L (0-40); Albumin Level 1.7 g/dL (3.5-5.0); Alkaline Phosphatase 199 U/L (39-117); Anion Gap 11 (12-20); Aspartate Amino Transferase 69 U/L (5-37); Bilirubin Total 1.4 mg/dL (0.0-1.0); Blood Urea Nitrogen 40 mg/dL (9-16); Calcium 7.6 mg/dL (8.4-10.2); Carbon Dioxide 26 mmol/L (22-29); Chloride 103 mmol/L (96-108); Estimated Glomerular Filt Rate 18; Glucose Random 109 mg/dL (60-115); Sodium 137 mmol/L (135-145); Total Protein 6.7 g/dL (6.5-8.0)
[2021-04-28 16:57] LABS: Potassium 2.9 mmol/L (3.3-5.1)
[2021-04-28 17:12] LABS: Hematocrit 20.3 % (42.0-52.0); Hemoglobin 6.8 g/dl (14.0-18.0); Platelet Count 92 X10*3/uL (160-400)
[2021-05-04 17:26] LABS: Vitamin C 0.1 mg/dL (0.2-2.1)
== END 2021-04-28 16:07 | disposition home or self-care (01) ==
LOC: HO.LAB 16:06
PROVIDERS: PCP Physician Assistant; Visit Provider Internal Medicine Gastroenterology
DX: K70.31 Alcoholic cirrhosis of liver with ascites (principal); R79.89 Other specified abnormal findings of blood chemistry; K75.81 Nonalcoholic steatohepatitis (NASH); D53.9 Nutritional anemia, unspecified
CPT/HCPCS: 36415; 80053; 82180; 85025

== ENCOUNTER 2021-05-04 14:50 | Outpatient (REF) | payer OTHER, SELFPAY ==
[2021-05-04 15:30] LABS: MANUAL DIFF FLAG NO
[2021-05-04 15:39] LABS: Basophils Percent Auto 0.4 % (0-2); Eosinophils Absolute Auto 0.1 X10*3/uL (0.0-0.4); Eosinophils Percent Auto 1.1 % (0-4); Hematocrit 20.8 % (42.0-52.0); Imm Gran Abs Auto 0.02 X10*3/uL (0.00-0.03); Imm Gran Pct Auto 0.4 % (0.0-0.4); Lymphocytes Percent Auto 18.7 % (20-40); Mean Corpuscular HGB Conc 33.2 g/dl (31.0-36.0); Mean Corpuscular Hemoglobin 32.9 pg (27.0-33.0); Monocytes Absolute Auto 0.6 X10*3/uL (0.1-1.2); Monocytes Percent Auto 10.5 % (2-11); Neutrophils Absolute Auto 3.6 x10*3/uL (2.0-8.3); Neutrophils Percent Auto 68.9 % (45-73); Platelet Count 116 X10*3/uL (160-400); White Blood Count 5.2 X10*3/uL (4.8-10.8)
[2021-05-04 15:43] LABS: Hemoglobin 6.9 g/dl (14.0-18.0)
[2021-05-04 16:45] LABS: Ferritin 434 ng/mL (20-250)
[2021-05-04 17:19] LABS: Alanine Aminotransferase 19 U/L (0-40); Albumin Level 1.6 g/dL (3.5-5.0); Alkaline Phosphatase 168 U/L (39-117); Anion Gap 13 (12-20); Aspartate Amino Transferase 35 U/L (5-37); Bilirubin Total 1.2 mg/dL (0.0-1.0); Blood Urea Nitrogen 37 mg/dL (9-16); Calcium 7.9 mg/dL (8.4-10.2); Carbon Dioxide 21 mmol/L (22-29); Chloride 104 mmol/L (96-108); Estimated Glomerular Filt Rate 20; Glucose Random 106 mg/dL (60-115); Potassium 3.3 mmol/L (3.3-5.1); Sodium 135 mmol/L (135-145); Total Protein 6.8 g/dL (6.5-8.0)
[2021-05-04 18:45] LABS: Magnesium 1.1 mg/dL (1.6-2.6)
[2021-05-04 19:37] LABS: Folate 13.4 ng/mL (> or = 4.0); Vitamin B12 793 pg/mL (200-900)
--- NOTE | 2021-05-04 23:18 | PM.EVENT ---
Event Note Date of Service: 05/04/21 Event Note: Abnormal lab results received earlier today. Attempted to contact patient via 2 numbers provided by lab personnel. Message left on answering machine to call back answering service or go to ED.
== END 2021-05-04 14:51 | disposition home or self-care (01) ==
LOC: HO.LAB 14:50
PROVIDERS: PCP Physician Assistant; Visit Provider Internal Medicine Gastroenterology
DX: I10 Essential (primary) hypertension (principal); K75.81 Nonalcoholic steatohepatitis (NASH); R79.89 Other specified abnormal findings of blood chemistry; D53.9 Nutritional anemia, unspecified; E87.6 Hypokalemia
CPT/HCPCS: 36415; 80053; 82607; 82728; 82746; 83735; 85025

== ENCOUNTER → 2021-05-05 15:25 | Outpatient (REF) | payer OTHER, SELFPAY ==
--- NOTE | 2021-05-05 15:30 | CA_ITS ---
Transthoracic Echocardiogram Patient (Last, First, Middle): Cornelius Garcia, Gender: Male Date of : 1965 Age: 55 Procedure Date: 05/05/2021 Procedure Type: Transthoracic Echocardiogram Location: OP Height: 175.26 cm Weight: 108.86 kg BSA: 2.23 m2 Heart Rate: bpm BP: 122 / 78 mmHg Mine Safety Manager: SHIRA Cross MD: Tenzin Garcia MD Sheet Metal Mechanic: Julien Marquez MD Symptoms: I42.9 - Cardiomyopathy, unspecified Study Quality: Fair ECG Rhythm: Sinus Conclusions: - 1. Low normal LV systolic function with impaired relaxation filling pattern 2. Normal cardiac valvular Doppler 3. No gross pericardial effusion Findings Left Ventricle Normal left ventricular cavity size. There is mildly increased left ventricular wall thickness. The left ventricular systolic function is low normal. The visually estimated ejection fraction is between 50-55%. Regional wall motion abnormalities can not be excluded due to suboptimal endocardial definition. Spectral Doppler is indicative of an impaired relaxation filling pattern. Right Ventricle Normal right ventricular cavity size and systolic function. Atria The left atrium is normal in size. Interatrial shunt cannot be excluded. The right atrium was not well visualized. Aortic Valve The aortic valve was not well visualized. There is no aortic valve stenosis. There is no aortic valve regurgitation. Mitral Valve Normal mitral valve structure and function. There is trace mitral valve regurgitation. There is no mitral valve stenosis. Pulmonic Valve The pulmonic valve was not well visualized. Tricuspid Valve Likely normal tricuspid valve structure and function. RV systolic pressure appears to be within normal limits is equal to 25 mmHg plus right atrial pressure which could not be estimated on this study Great Vessels All visible segments of the aorta are normal in size. The pulmonary artery was not well visualized. Venous The inferior vena cava was not well visualized. Pericardium/Pleural There is no evidence of pericardial effusion. Prior Study Comparison Changes noted compared to prior study dated: 10/02/2019. LV systolic function appears to have improved Measurements 2D Linear Measurements IVSd: 1.22 0.6-0.9/0.6-1.0 cm LVIDd: 5.60 3.9-5.3/4.2-5.9 cm LVIDd Index: 2.51 2.4-3.2/2.2-3.1 cm/m2 LVIDs: 4.04 2.0-3.6 cm LVPWd: 1.09 0.7-1.1 cm Ao Root: 3.60 2.1-3.5 cm LA Diam: 3.50 2.7-3.8/3.0-4.0 cm LAIDs Index: 1.57 1.5-2.3 cm/m2 LV Mass: 332.07 67-162/88-224 g LV Mass Index: 148.91 43-95/49-115 g/m2 LVOT Diam: 2.50 3.0+(-)1.3 cm 2D Systolic Function EF 4C: 56.20 >55% EF 2C: 55.20 >55% EF BiP: 56.10 >55% Aortic Valve AoV Pk Sabas: 1.38 AoV Mn Sabas: 0.90 AoV VTI: 0.25 AoV Pk Grad: 8.00 Aov Mn Grad: 4.00 WINDY Cont.VTI: 3.34 LVOT LVOT Pk Sabas: 0.91 LVOT Mn Sabas: 0.70 LVOT VTI: 0.17 LVOT Pk Grad: 3.00 LVOT Mn Grad: 2.00 LVOT Diam: 2.50 LVOT Area: 4.91 Right Ventricle TAPSE (mm): 28.20 TVS' Sabas: 15.20 Tricuspid Valve TR Pk Sabas: 2.48 TR Pk Grad: 25.00 Great Vessels Aorta Ao Root-2D: 3.60 2.0-3.7 cm Ao Asc: 3.00 2.1-3.4 cm Ao Arch: 2.50 Updated in Other Vendor System with Status of Final Julien Marquez MD electronically signed on 05/06/2021 1:18:25 PM with status of Final
== END ==
LOC: HO.CARD 15:25
PROVIDERS: PCP Physician Assistant; Visit Provider Internal Medicine
DX: I42.9 Cardiomyopathy, unspecified (principal)
CPT/HCPCS: 93306

== ENCOUNTER 2021-05-09 11:02 | Outpatient (REF) | payer OTHER, SELFPAY ==
[2021-05-09 12:25] LABS: Anion Gap 12 (12-20); Blood Urea Nitrogen 35 mg/dL (9-16); Calcium 7.6 mg/dL (8.4-10.2); Carbon Dioxide 22 mmol/L (22-29); Chloride 105 mmol/L (96-108); Estimated Glomerular Filt Rate 23; Glucose Random 86 mg/dL (60-115); Potassium 3.2 mmol/L (3.3-5.1); Sodium 136 mmol/L (135-145)
== END 2021-05-09 11:03 | disposition home or self-care (01) ==
LOC: HO.MDS 11:02
PROVIDERS: Visit Provider Internal Medicine Gastroenterology
DX: D64.9 Anemia, unspecified (principal); M47.9 Spondylosis, unspecified; M87.9 Osteonecrosis, unspecified
CPT/HCPCS: 36415; 36430; 80048; 86850; 86900; 86901; 86923; P9016

== ENCOUNTER 2021-05-13 09:05 | Day surgery (SDC) | payer OTHER, SELFPAY ==
[2021-05-13] VITALS (10 sets, daily range): BP systolic 75–93; BP diastolic 26–46; PULSE 106–112; RESP 16–18; TEMP 36.8–37.2; O2SAT 93–100; BMI 35.9
--- NOTE | ~2021-05-13 | US_ITS ---
EXAMINATION: ULTRASOUND-GUIDED PARACENTESIS CLINICAL INFORMATION: Ascites COMPARISON: CT abdomen of December 02, 2020 TECHNIQUE: Ultrasound-guided paracentesis FINDINGS: Informed consent was obtained from the patient prior to the procedure. During this process, the procedure and potential alternatives were explained, along with the intended outcome and benefits. The risks of the procedure, as well as the risk of not doing the procedure, were discussed. The patient was given the opportunity to ask questions regarding the procedure and appeared competent to make medical decisions. A signed consent form which documents this discussion was placed in the medical record. Using sterile technique and ultrasound guidance a 5 Ukrainian Yueh needle was directed into the right peritoneal space and a total of 12 L of clear yellow fluid removed. Samples were sent for diagnostic studies. US/US paracentesis abd w/image IMPRESSION: Paracentesis with removal of 12 L of clear yellow fluid.
[2021-05-13 09:46] LABS: MANUAL DIFF FLAG NO
[2021-05-13 09:47] LABS: Basophils Percent Auto 0.4 % (0-2); Eosinophils Absolute Auto 0.2 X10*3/uL (0.0-0.4); Eosinophils Percent Auto 3.6 % (0-4); Imm Gran Abs Auto 0.01 X10*3/uL (0.00-0.03); Imm Gran Pct Auto 0.2 % (0.0-0.4); Lymphocytes Absolute Auto 1.9 X10*3/uL (1.2-4.9); Lymphocytes Percent Auto 39.4 % (20-40); Mean Corpuscular Hemoglobin 32.2 pg (27.0-33.0); Mean Corpuscular Volume 97.7 fL (80.0-98.0); Mean Platelet Volume 10.8 fL (9.4-12.4); Monocytes Absolute Auto 0.5 X10*3/uL (0.1-1.2); Monocytes Percent Auto 10.6 % (2-11); Neutrophils Absolute Auto 2.2 x10*3/uL (2.0-8.3); Neutrophils Percent Auto 45.8 % (45-73); Platelet Count 108 X10*3/uL (160-400); Red Blood Count 2.14 X10*6/uL (4.60-5.80); Red Cell Distribution Width 19.1 % (11.0-16.0); White Blood Count 4.7 X10*3/uL (4.8-10.8)
[2021-05-13 09:51] LABS: Hemoglobin 6.9 g/dl (14.0-18.0)
[2021-05-13 09:52] LABS: Hematocrit 20.9 % (42.0-52.0)
[2021-05-13 09:54] LABS: INTERNATIONAL NORM RATIO 1.3 (0.9-1.1); Prothrombin Time 15.4 SEC (9.9-13.0)
[2021-05-13 09:57] LABS: Partial Thromboplastin Time 35.8 SEC (24.1-38.0)
[2021-05-13 09:59] LABS: Anion Gap 10 (12-20); Carbon Dioxide 22 mmol/L (22-29); Chloride 107 mmol/L (96-108); Potassium 3.2 mmol/L (3.3-5.1); Sodium 136 mmol/L (135-145)
--- NOTE | 2021-05-13 10:40 | PC.NURSE ---
Critical H/H results discussed with Handy Marroquin RN, per Dr Claudia garcia to proceed with current paracentesis. The ordering physician of procedure is Handy Madera to discuss with Dr Arboleda plan for patient after procedure- whether or not needed to be seen in ER d/t low H/H or follow up outpatient. Christa also aware of results and plan to have DR Arboleda top make post procedure decision.
[2021-05-13] MEDS: Lidocaine HCl 1 % MPF 5 ML VIAL SUBCUT (12:05)
[2021-05-13 12:46] LABS: MN% 94.5 %; PMN% 5.5 %; WBC Peritoneal Fluid 0.033 X10*3/uL
[2021-05-13 12:52] LABS: RBC Peritoneal Fluid < 0.002 X10*6/uL
[2021-05-13 13:22] LABS: Eosinophils Peritoneal Fl 0 %; Lymphocyte Peritoneal Fl 11 %; Monocytes Peritoneal Fl 16 %; Neutrophils Peritoneal Fluid 9 %
[2021-05-13 13:23] LABS: BF Shift QC OK YES; Basophils Peritoneal Fl 0 %; Man Diluent Bkgrd OK YES; Other Peritioneal Fl 64 %
[2021-05-14 07:24] LABS: Albumin Peritoneal Fluid 0.3; LDH Peritoneal Fluid 33; Total Protein Peritoneal Fluid 0.8
[2021-05-14 07:25] LABS: Glucose Peritoneal Fluid 107
== END 2021-05-13 15:08 | disposition home or self-care (01) ==
PROVIDERS: Internal Medicine Gastroenterology; Radiology Diagnostic Radiology; PCP Physician Assistant; Visit Provider Radiology Diagnostic Radiology
DX: R18.8 Other ascites (principal); K70.31 Alcoholic cirrhosis of liver with ascites; I50.9 Heart failure, unspecified; D53.9 Nutritional anemia, unspecified; J44.9 Chronic obstructive pulmonary disease, unspecified; R79.89 Other specified abnormal findings of blood chemistry; F17.210 Nicotine dependence, cigarettes, uncomplicated
CPT/HCPCS: 36415; 49083; 80051; 82042; 82945; 83615; 84157; 85025; 85610; 85730; 89051; P9047

== ENCOUNTER → 2021-05-23 12:57 | Day surgery (SDC) | payer OTHER, SELFPAY ==
[2021-05-23 13:05] VITALS: BMI 32.5
[2021-05-23 13:26] LABS: MANUAL DIFF FLAG NO
[2021-05-23 13:27] LABS: Basophils Percent Auto 0.9 % (0-2); Eosinophils Absolute Auto 0.2 X10*3/uL (0.0-0.4); Eosinophils Percent Auto 4.4 % (0-4); Hematocrit 21.8 % (42.0-52.0); Hemoglobin 7.2 g/dl (14.0-18.0); Lymphocytes Absolute Auto 2.3 X10*3/uL (1.2-4.9); Lymphocytes Percent Auto 49.7 % (20-40); Mean Corpuscular Hemoglobin 32.1 pg (27.0-33.0); Mean Corpuscular Volume 97.3 fL (80.0-98.0); Mean Platelet Volume 10.4 fL (9.4-12.4); Monocytes Absolute Auto 0.4 X10*3/uL (0.1-1.2); Monocytes Percent Auto 9.4 % (2-11); Neutrophils Absolute Auto 1.6 x10*3/uL (2.0-8.3); Neutrophils Percent Auto 35.6 % (45-73); Platelet Count 158 X10*3/uL (160-400); Red Blood Count 2.24 X10*6/uL (4.60-5.80); Red Cell Distribution Width 17.6 % (11.0-16.0); White Blood Count 4.6 X10*3/uL (4.8-10.8)
[2021-05-23 13:35] LABS: INTERNATIONAL NORM RATIO 1.2 (0.9-1.1); Prothrombin Time 13.5 SEC (9.9-13.0)
[2021-05-23 13:38] LABS: Partial Thromboplastin Time 27.3 SEC (24.1-38.0)
[2021-05-23 13:49] LABS: Anion Gap 11 (12-20); Carbon Dioxide 23 mmol/L (22-29); Chloride 107 mmol/L (96-108); Potassium 2.6 mmol/L (3.3-5.1); Sodium 138 mmol/L (135-145)
--- NOTE | 2021-05-23 14:51 | PC.NURSE ---
pt potassium back at 1355 at 2.6. may office called but he is away on vacation. msg left with hector. dr sales here and covering for may and reported the potassium. recommended to go to er to get admitted most likely. pt back and forth, not sure of wanting admission at all or going to [facility]. dr sales spoke with er. after calling someone, pt has finally decided to go to our er and speak with them about a plan.
== END ==
PROVIDERS: PCP Physician Assistant; Visit Provider Radiology Diagnostic Radiology
DX: R18.8 Other ascites (principal); Z53.09 Procedure and treatment not carried out because of other contraindication; R79.9 Abnormal finding of blood chemistry, unspecified
CPT/HCPCS: 36415; 80051; 85025; 85610; 85730

== ENCOUNTER 2021-05-23 15:01 | Inpatient (IN) | payer OTHER, SELFPAY ==
--- NOTE | ~2021-05-23 | US_ITS ---
PROCEDURE: ULTRASOUND-GUIDED PARACENTESIS CLINICAL INFORMATION: Liver cirrhosis and ascites. COMPARISON: None TECHNIQUE: Following explaining ultrasound-guided paracentesis procedure, benefits and risk, a written consent was obtained. Patient was placed supine on fluoroscopy table and preliminary imaging of abdomen was obtained. An optimal site was selected and marked on the skin. The marked site was cleaned and draped in usual sterile manner. 1% lidocaine was injected at marked site. Through a small skin incision a 5 [place] Syndianteh catheter was advanced into the right lower quadrant peritoneal space. After observing fluid return, stylet was withdrawn and catheter connected to vacuum bottle via connecting cannula. After obtaining all fluid and observing no more fluid return, catheter was withdrawn and complete hemostasis achieved at puncture site. Sterile dressing applied postprocedure. Patient tolerated procedure extremely well. FINDINGS: On preliminary ultrasound imaging there is moderate to large ascites seen. Approximately 9.5 L of clear yellowish fluid drained from the right lower quadrant. Part of this fluid was sent to lab. US/US paracentesis abd w/image IMPRESSION: Successful ultrasound-guided diagnostic and therapeutic paracentesis performed without immediate complications.
[2021-05-23 15:12] VITALS: BP 102/62; PULSE 100; RESP 18; TEMP 36.8; O2SAT 98; BMI 32.3
--- NOTE | 2021-05-23 15:51 | ECG_ITS ---
Test Reason : TACHYCARDIA Blood Pressure : / mmHG Vent. Rate : 101 BPM Atrial Rate : 101 BPM P-R Int : 162 ms QRS Dur : 088 ms QT Int : 308 ms P-R-T Axes : 080 012 -60 degrees QTc Int : 399 ms Sinus tachycardia Low voltage QRS Cannot rule out Inferior infarct (cited on or before 02-DEC-2020) Cannot rule out Anterior infarct (cited on or before 02-DEC-2020) Abnormal ECG When compared with ECG of 02-DEC-2020 21:51, No significant change was found Referred By: Yumiko Arriaga Electronically Signed By:Corbin Klein
--- NOTE | 2021-05-23 15:54 | ED_ITS ---
HPI - Recheck/Abnormal Lab/Rx General Chief Complaint: Recheck/Abnormal Lab/Rx Stated Complaint: abnormal labs Time Seen by Provider: 05/23/21 15:09 Source: patient Mode of arrival: wheelchair Limitations: no limitations History of Present Illness HPI narrative: 55-year-old male presents from the OR for hypokalemia. Patient does have a significant history of hypokalemia, ascites, cirrhosis, hypertension, COPD, and CAD. He presented to the OR for paracentesis. MD complaint: abnormal lab Initial visit (ago): hour(s) (Within the hour of arrival) Initial visit for: other (Scheduled paracentesis) Returns today for: called because of abnormal lab/test Symptoms since prior visit: no new symptoms Context: called for abnormal lab result Associated symptoms: none Related Data Previous Rx's Medication Instructions Recorded albuterol sulfate 90 mcg/actuation 2 puff INHALATION Q6H PRN #18 g 10/26/20 aerosol inhaler (Ventolin HFA) omeprazole 20 mg capsule,delayed 20 mg PO DAILY #30 cap 12/20/20 release spironolactone 50 mg tablet 50 mg PO DAILY #30 tab 03/22/21 buprenorphine 20 mcg/hour weekly 1 patch TRANSDERMAL Q7D 28 Days #4 04/04/21 transdermal patch (Butrans) ea furosemide 40 mg tablet 40 mg PO BID 30 Days #60 cap 04/11/21 multivitamin (One Daily 1 tab PO DAILY #60 tab 04/19/21 Multivitamin) vitamin A palmitate 10,000 unit 10,000 unit PO DAILY #30 tab 04/19/21 tablet zinc sulfate 50 mg zinc (220 mg) 50 mg PO DAILY #60 tab 04/19/21 tablet magnesium 200 mg tablet 200 mg PO DAILY #30 tab 05/02/21 clonazepam 1 mg tablet 1 mg PO DAILY 30 Days #30 tab 05/09/21 Allergies Allergy/AdvReac Type Severity Reaction Status Date / Time lisinopril Allergy Unknown ? kidney Verified 04/04/21 13:27 issue possible r/t to this med Review of Systems Review of Systems: Constitutional: No Fever, No Chills ENT/Mouth: No Ear Pain, No Hoarseness, No sore throat Eyes: No Eye Pain, No Swelling, No Redness, No Foreign Body Cardiovascular: No Chest Pain, No SOB Respiratory: No Cough, No Dyspnea Gastrointestinal: Positive abdominal distention, No Nausea, No Vomiting, No Diarrhea, No abdominal Pain Genitourinary: No Dysuria, No Hematuria Musculoskeletal: No joint pain, No Myalgias, No Joint Swelling Skin: No Skin lacerations, No rash Neuro: No Weakness, No Numbness, No Paresthesias, No Loss of Consciousness, No Dizziness, No Headache Psych: No Anxiety/Panic, No Depression Heme/Lymph: no easy bruising, no Lymphadenopathy Endocrine: No Polyuria, No Polydipsia Yes all other systems are reviewed and are negative [facility] Past Medical History Attestation statement: The following information was validated with the patient. Source: old records reviewed Medical History Anemia Ascites Avascular necrosis of bone Cardiomyopathy CHF (congestive heart failure) Cirrhosis Elevated LFTs History of avascular necrosis of capital femoral epiphysis Hypogonadism Lumbar spondylosis Obesity Obesity (BMI 30-39.9) Sinus tachycardia Spondylosis Surgical History History of hand surgery Hx of bilateral hip replacements Family History Family History Father Heart problem CVD (cardiovascular disease) Myocardial infarction Mother No problems noted. Daughter In good health Son In good health Sister In good health Social History Social History Household Members Other:: Lives with mom Housing: House Alcohol intake: current Alcohol intake frequency: holidays/special occasions only Patient Tobacco Use Status: Current everyday Tobacco user Tobacco use type: Cigarette Cigarette Packs Per Day: 0.5 Cigarettes Per Day: 10 e-Cigarette/Vaping Use: Never Used Substance Use Type: Marijuana Advance Directives: No Advance Directives Information Provided: No service: No Current occupational status: disabled Physical Exam Vital Signs: Vital Signs: Last Vital Signs Temp 98.1 F 05/23/21 16:01 Pulse 84 05/23/21 21:44 Resp 14 05/23/21 21:44 BP 92/56 L 05/23/21 21:44 Pulse Ox 98 05/23/21 21:44 BMI result Body Mass Index 32.3 Appearance: Alert. Oriented X3. No acute distress. Pale. Eyes: Pupils equal, round and reactive to light. Sclera nonicteric. ENT: Pharynx normal. Dry mucous membranes. Neck: Normal inspection. Neck supple. CVS: Tachycardic heart rate and rhythm. Apical pulse occult pulses to extremities. Respiratory: No respiratory distress. Breath sounds normal. Abdomen: Soft and nontender. Diffusely distended secondary to ascites. Skin: Skin warm and dry. Mildly jaundiced.. Normal skin turgor. Extremities: Bilateral lower extremity edema. Gait not assessed for safety. Moves all extremities against resistance. Neuro: No motor deficit. No sensory deficit. Cranial nerves 2-12 intact. Course Course Course Narrative: 55-year-old male presents from the OR for hypokalemia. Patient was scheduled to have paracentesis however when gastroenterology discovered potassium of 2.6 they referred him to the emergency department. Will repeat chemistries, order Klor- Con 40 mEq p.o.. 16:[address] Castro, plan is to replete potassium, admit to hospitalist service and to have paracentesis scheduled for tomorrow. 17:30 discussion with hospitalist, plan is to admit for hypokalemia and scheduled paracentesis for tomorrow. Hospitalist would like an order for albumin 25 q.6 and repeat lab values at 19:00. Consultations Consultation #1: Matthew Time: 16:13 Consultation #2: ashwini Time: 17:34 MDM - Recheck/Abnormal Lab/Rx MDM Narrative Medical decision making narrative: Hypokalemia Medical Records Attestation: I reviewed the patient's medical records. Lab Data Attestation: I reviewed the patient's lab results. Result diagrams: 05/23/21 21:56 Labs: Lab Results 05/23/21 05/23/21 Range/Units 16:15 17:44 Sodium 140 (135-145) mmol/L Potassium 2.6 L (3.3-5.1) mmol/L Chloride 108 (96-108) mmol/L Carbon Dioxide 23 (22-29) mmol/L Anion Gap 12 (12-20) BUN 18 H (9-16) mg/dL Creatinine 1.66 H (0.5-1.4) mg/dL Estim Creat Clear Calc 61.5 Estimated GFR 44 Random Glucose 91 (60-115) mg/dL Calcium 7.4 L (8.4-10.2) mg/dL Magnesium 1.1 L* (1.6-2.6) mg/dL Iron 84 (45-160) mcg/dL TIBC 102 L (228-428) mcg/dL % Saturation 82 H (15-50) % Unsat Iron Binding 18 ug/dL Total Bilirubin 1.0 (0.0-1.0) mg/dL Direct Bilirubin 0.5 (0.0-0.5) mg/dL AST 25 (5-37) U/L ALT 11 (0-40) U/L Alkaline Phosphatase 119 H D (39-117) U/L Total Protein 6.2 L (6.5-8.0) g/dL Albumin 1.9 L (3.5-5.0) g/dL COVID-19 ([facility]) Negative (Negative) COVID-19 Clin Com See Note ECG Data Attestation: I personally reviewed and interpreted this ECG as follows: ECG interpretation date: 05/23/21 ECG interpretation time: 16:04 Prior ECG tracings: available for review Interpretation: Vent. rate 101 BPM ND interval 162 ms QRS duration 88 ms QT/QTc 308/399 ms P-R-T axes 80 12 -60 Sinus tachycardia Low voltage QRS Cannot rule out Inferior infarct (cited on or before 02-DEC-2020) Cannot rule out Anterior infarct (cited on or before 02-DEC-2020) Abnormal ECG When compared with ECG of 02-DEC-2020 21:51, No significant change was found Discharge Plan Discharge Clinical Impression: Hypokalemia, Ascites Patient Disposition: Admitted As Inpatient
[2021-05-23 16:01] VITALS: BP 100/59; PULSE 100; RESP 12; TEMP 36.7; O2SAT 96
[2021-05-23] MEDS: Potassium Chloride Packet 20 MEQ PACKET 40 MEQ PO ×2 (16:09→18:43)
[2021-05-23 16:38] LABS: Anion Gap 12 (12-20); Blood Urea Nitrogen 18 mg/dL (9-16); Calcium 7.4 mg/dL (8.4-10.2); Carbon Dioxide 23 mmol/L (22-29); Chloride 108 mmol/L (96-108); Creatinine Clr Calc Pharmacy 61.5; Estimated Glomerular Filt Rate 44; Glucose Random 91 mg/dL (60-115); Potassium 2.6 mmol/L (3.3-5.1); Sodium 140 mmol/L (135-145)
--- NOTE | 2021-05-23 17:32 | PHA.MEDREC ---
Pharmacy Consult ? Medication Reconciliation Pharmacy has completed the medication reconciliation. Patient applied new Butrans patch yesterday. Per patient, he was on a potassium supplement (horse pill) that he finished yesterday. Thanks Arnulfo Segovia
[2021-05-23 18:06] LABS: IDNOW Serial# 16C4AD1C
[2021-05-23 18:07] LABS: COVID-19 Test Negative (Negative)
[2021-05-23 18:31] LABS: Magnesium 1.1 mg/dL (1.6-2.6)
[2021-05-23] MEDS: Albumin Human 25 % 100 ML IV ×2 (18:33→23:47)
--- NOTE | 2021-05-23 18:35 | PM.IMHP ---
History of Present Illness Date of Service: 05/23/21 Attending physician on admission: Flaquito Coleman Chief Complaint: hypokalemia, ascitis 55-year-old male with multiple comorbidities including liver cirrhosis, microcytic anemia, cardiomyopathy, hypogonadism, obesity, history of CHF: Came to the hospital because patient ascites tap, during that time labs were done and his potassium found to be 2.6, so deferred ascites tap for the morning. And patient was sent to the ED: ED physician discussed the case with GI and recommended admission for management of hypokalemia as well as ascites. Patient says that otherwise feeling well but generally feeling weak, also has discomfort due to ascites. His last paracentesis was 05/13/2021-12 L fluid was drained. Denies any new complaint of chest pain or shortness of breath or abdominal pain or fever or chills or nausea or vomiting Denies any cough Denies any weakness or numbness. In ED: CBC: H&H is 7.2/21.8 Platelets 158 BUN 18, creatinine 1.66, potassium 2.6, magnesium 1.1 EKG: NSR no new changes In the ED patient received: 40 mg and of potassium, 20 mg and potassium added p.o. as well as IV. Will add magnesium also. Review of Systems Review of Systems: As above. [facility] Medical History Anemia Ascites Avascular necrosis of bone Cardiomyopathy CHF (congestive heart failure) Cirrhosis Elevated LFTs History of avascular necrosis of capital femoral epiphysis Hypogonadism Lumbar spondylosis Obesity Obesity (BMI 30-39.9) Sinus tachycardia Spondylosis Family History Father Heart problem CVD (cardiovascular disease) Myocardial infarction Mother No problems noted. Daughter In good health Son In good health Sister In good health Pertinent family history: He says that almost all family member has hypertension Surgical History History of hand surgery Hx of bilateral hip replacements Social History Household Members Other:: Lives with mom Housing: House Alcohol intake: current Alcohol intake frequency: holidays/special occasions only Patient Tobacco Use Status: Current everyday Tobacco user Tobacco use type: Cigarette Cigarette Packs Per Day: 0.5 Cigarettes Per Day: 10 e-Cigarette/Vaping Use: Never Used Substance Use Type: Marijuana Advance Directives: No Advance Directives Information Provided: No service: No Current occupational status: disabled Meds Allergies Allergy/AdvReac Type Severity Reaction Status Date / Time lisinopril Allergy Unknown ? kidney Verified 04/04/21 13:27 issue possible r/t to this med Active Medications: Current Medications Albuterol Sulfate (Albuterol Sulfate 90 Mcg 8 Gm Inhaler) 2 puff INHALE Q6H PRN PRN Reason: shortness of breath or wheezing Clonazepam (Clonazepam 1 Mg Tablet) 1 mg PO DAILY ANIL Albumin Human (Kedbumin 25 %) 100 mls @ 100 mls/hr IV Q6H ANIL Stop: 05/24/21 12:44 Potassium Chloride () 20 meq in 100 mls @ 100 mls/hr IV Q1H ANIL Stop: 05/23/21 20:29 Multivitamins/Vitamin C (Multivitamin Tablet) 1 tab PO DAILY ANIL Non-Formulary Medication (Buprenorphine [Butrans]) 1 patch TRANSDERMA Q7D ANIL Non-Formulary Medication (Magnesium) 200 mg PO DAILY ANIL Non-Formulary Medication (Vitamin A Palmitate) 10,000 unit PO DAILY ANIL Non-Formulary Medication (Zinc Sulfate) 50 mg PO DAILY ANIL Omeprazole (Omeprazole 20 Mg Capsule.Dr) 20 mg PO DAILY ANIL Sodium Chloride (0.9 % Sodium Chloride Flush 3 Ml Syringe) 3 ml IVFLUSH QSHIFT ANIL Physical Exam Vital Signs and Narrative: Vital Signs: Last Vital Signs Temp 98.1 F 05/23/21 16:01 Pulse 100 05/23/21 16:01 Resp 12 05/23/21 16:01 BP 100/59 L 05/23/21 16:01 Pulse Ox 96 05/23/21 16:01 BMI result Body Mass Index 32.3 Appearance: Alert.? Oriented X3.? not in distress.? Eyes: Pupils equal, round and reactive to light.? Sclera nonicteric.? ENT: Pharynx normal.? Moist mucous membranes. cvs: rrr, [id number]. res: clear to auscultation ,no rhonchii or wheezing abd: no rebound or guarding ,nt, bs present. ext pulses present , no cyanosis , has b/l lower ext chronic venostasis type changes, mild edema. neuro: axo3 , nonfocal. Results Labs CBC and Chem 7: 05/24/21 05:42 05/24/21 05:42 Labs: Laboratory Results - last 24 hr 05/23/21 05/23/21 16:15 17:44 Anion Gap 12 Estim Creat Clear Calc 61.5 Estimated GFR 44 Random Glucose 91 Calcium 7.4 L Magnesium 1.1 L* COVID-19 ([facility]) Negative COVID-19 Clin Com See Note ECG Attestation: I personally reviewed and interpreted this ECG as follows: (nsr , unchanged from before.) Assessment and Plan (1) Hypokalemia: Status: Acute (2) Ascites: Status: Acute (3) Anemia: Status: Acute Plan 55-year-old male with multiple medical comorbidities came to the hospital-ascites slated to cirrhosis, hypokalemia probably related to poor oral intake and diuretics. 1. Cirrhosis probably related to alcohol Ascitis : Patient will need paracentesis tap in the morning NPO past midnight INR is 1.2 Hypoalbuminemia probably secondary to poor oral intake and liver disease. Patient says that he still drinks alcohol on and off. hold Lasix and spironolactone in anticipation of ascitic tap in the morning. 2. Anemia: Probably multifactorial Macrocytic Recent folate and B12 normal Patient denies any gross bleeding recently. Iron plan added Gi eval for ascitis and anemia. 3. CKD: Probably stage III In the setting of anemia/CKD-add nephrology evaluation. 4. Opioid use on buprenorphine 5. Hypokalemia and hypomagnesemia: Will replete magnesium and potassium Will check potassium level in night and follow-up in morning with BMP. Monitor on tele due to severe electrolytic abnormalities. DVT prophylaxis: Mechanical devices since has anemia. Above management discussed with patient in detail length he understand and in agreement with the above plan, time spent 70 minute, patient full code. Quality Stroke Does the patient have a stroke diagnosis?: No VTE Prior VTE?: No VTE Risk Level:: Medical - moderate - high VTE Device Contraindication: N/A - Device Ordered VTE Drug Contraindication: N/A - Med Ordered
[2021-05-23 19:10] LABS: Alanine Aminotransferase 11 U/L (0-40); Albumin Level 1.9 g/dL (3.5-5.0); Alkaline Phosphatase 119 U/L (39-117); Aspartate Amino Transferase 25 U/L (5-37); Bilirubin Direct 0.5 mg/dL (0.0-0.5); Iron 84 mcg/dL (45-160); Percent Iron Saturation 82 % (15-50); Total Iron Binding Capacity 102 mcg/dL (228-428); Total Protein 6.2 g/dL (6.5-8.0); Unsaturated Iron Binding 18 ug/dL
[2021-05-23 19:13] VITALS: BP 104/59; PULSE 94; RESP 15; O2SAT 98
[2021-05-23 19:17] LABS: Blood Urea Nitrogen 18 mg/dL (9-16); Calcium 7.1 mg/dL (8.4-10.2); Creatinine Clr Calc Pharmacy 65.9; Estimated Glomerular Filt Rate 47; Glucose Random 82 mg/dL (60-115)
[2021-05-23] MEDS: Magnesium Oxide 400 MG TABLET 800 MG PO (19:22)
[2021-05-23 19:24] LABS: Anion Gap 11 (12-20); Carbon Dioxide 22 mmol/L (22-29); Chloride 109 mmol/L (96-108); Potassium 3.8 mmol/L (3.3-5.1); Sodium 138 mmol/L (135-145)
--- NOTE | 2021-05-23 20:00 | PC.NURSE ---
patient updated on care plan. patient provided meal at this time. patient upset about needing to stay in hospital overnight. attempted to obtain hospital bed for patient . patient in no obvious distress. will continue to monitor
[2021-05-23] MEDS: Magnesium Sulfate/H2O 2 GM/50 ML PIGGYBACK IV (20:18)
[2021-05-23 21:44] VITALS: BP 92/56; PULSE 84; RESP 14; O2SAT 98
[2021-05-23] MEDS: clonazePAM 1 MG TABLET PO (22:07)
[2021-05-23 22:11] LABS: Potassium 3.3 mmol/L (3.3-5.1)
[2021-05-24] VITALS (10 sets, daily range): BP systolic 94–113; BP diastolic 49–69; PULSE 85–96; RESP 12–22; TEMP 36.6–37.2; O2SAT 94–98
[2021-05-24] MEDS: 0.9 % Sodium Chloride Flush 3 ML SYRINGE IVFLUSH (01:08)
--- NOTE | 2021-05-24 02:16 | PC.NURSE ---
Patient transferred to overflow ed bed 5, patient alert and oriented x3. Patient denies pain at this time, l/s clear, abdomen distended secondary to ascites, bilateral lower extremity edema noted. Patient will be kept npo for potential parenthesis in the morning. Supervised to bathroom, vss, call hernandez within reach.
[2021-05-24 06:31] LABS: Anion Gap 10 (12-20); Blood Urea Nitrogen 17 mg/dL (9-16); Calcium 7.5 mg/dL (8.4-10.2); Carbon Dioxide 24 mmol/L (22-29); Chloride 110 mmol/L (96-108); Creatinine Clr Calc Pharmacy 67.7; Estimated Glomerular Filt Rate 49; Glucose Random 85 mg/dL (60-115); Sodium 141 mmol/L (135-145)
[2021-05-24] MEDS: Albumin Human 25 % 100 ML IV ×2 (06:31→13:59)
[2021-05-24 06:32] LABS: Hemoglobin 6.1 g/dl (14.0-18.0)
--- NOTE | 2021-05-24 07:15 | P.CNGI_ITS ---
History of Present Illness Data of Consult Service Date: 05/24/21 Requesting physician: Flaquito Coleman Primary Care Provider: Enio Gabriel PA-C HPI Reason for consult: Cirrhosis with ascites and anemia 55 YM with ESLD complicated by ascites seen [place] [facility] [place]: 55-year-old male presents from the OR for hypokalemia.? Patient does have a significant history of hypokalemia, ascites, cirrhosis, hypertension, COPD, and CAD.? He presented to the OR for paracentesis. Patient was admitted to [facility] with new onset ascites in January 2021. He has been followed by Dr. Arboleda since February 2021. He has a know hx of non-compliance to requests to come to the ED for evaluation and admission for management of severe anemia and electrolyte imbalance. Pt came for a large volume paracentesis on 05/23/2021 as an outpatient. Potassium was 2.6 and patient was advised to go to [facility] for correction of hypokalemia and he reluctantly complied. Patient denies symptoms of heartburn, dysphagia, nausea, vomiting. He admits to wt gain and worsening lower extremity edema over the past several days. Last paracentesis was on 05/13/2021 - ascitic fluid analysis was consistent with portal hypertension and negative for SBP Pt is upset that cirrhosis is being attributed to ETOH use. States he has not been drinking heavily in the past. He quitted from October till and resumed drinking intermittently and in a smaller quantity since He quitted eating meat after multiple teeth were extracted. Denies recent change in bowel habits, constipation, diarrhea, black stools or rectal bleeding. Patient has COPD, CHF and cardiomyopathy. He is status post bilateral hip replacement for avascular necrosis in 2012 and 2013 at [facility] [place] He complains of chronic LBP and trouble walking and was managing his pain with MS contin and percocet. He was switched to suboxone and a patch and complains of continued pain Denies being on chronic anticoagulation. 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 Pt is undergoing divorce proceedings and has 4 children Patient denies known family history of colon polyps, colon cancer or other GI malignancies. PAST GI HISTORY BY REVIEW OF MEDICAL RECORDS: Pt was seen by DR Arboleda in 02/2021: He had admission for new onset ascites at [facility] 01/2021 He had 7 L drained He was noted to have anemia and transfused 1 unit of blood, there was no overt bleeding he was given rifaxmin he was also d/c'ed on aldactone, lasix He feels he has been doing well since d/c from hospital leg swelling is much reduced no alcohol since 10/2020 he has no further abdo distention appetite is variable memory is normal denies melena, no fresh rectal bleeding denies episatixis, no hematuria A/P: 1/ Presumed alcoholic related decompensated cirrhosis with ascites 2/ Anemia, no overt GI bleeding 3/ alcohol abuse 4/ Edema from cirrhosis and possible heart disease PLAN: 1/ Cirrhosis- advised on alcohol abstinence 2/ Ascites--reviewed lo salt diet, increase ladactone to 50 mg cont with lasix as doing, use scales and monitor weight, give me call in 1 weeks with update, rechekc labs next week 3/ Varcies--needs EGD 4/ HE--no confusion 5/ Transplant--follow clinical cours,e may need referral depending on labs and MELD 6/ will need colonsocopy for anemia w/u--never had one IMAGING STUDIES: 12/02/[address] SCAN SHOWED: LIVER, GALLBLADDER, AND BILIARY TREE: There is marked decreased attenuation of the liver consistent with hepatic steatosis. In terms of liver size, the liver appears smaller than previously noted at 17 cm where as previously this measured about 21 cm. No focal liver mass is seen. No bile duct dilatation is present. Of note, there is now moderate to large amount of ascites present whereas previously, no significant ascites was present. The gallbladder is contracted but otherwise unremarkable with no evidence of radiopaque gallstones, gallbladder wall thickening, or obvious pericholecystic inflammatory changes.? Review of Systems Review of Systems: As above. [facility] Past Medical History Medical History Anemia Ascites Avascular necrosis of bone Cardiomyopathy CHF (congestive heart failure) Cirrhosis Elevated LFTs History of avascular necrosis of capital femoral epiphysis Hypogonadism Lumbar spondylosis Obesity Obesity (BMI 30-39.9) Sinus tachycardia Spondylosis Family History Family History Father Heart problem CVD (cardiovascular disease) Myocardial infarction Mother No problems noted. Daughter In good health Son In good health Sister In good health Surgical History Surgical History History of hand surgery Hx of bilateral hip replacements Social History Social History Household Members Other:: Lives with mom Housing: House Alcohol intake: current Alcohol intake frequency: holidays/special occasions only Patient Tobacco Use Status: Current everyday Tobacco user Tobacco use type: Cigarette Cigarette Packs Per Day: 0.5 Cigarettes Per Day: 10 e-Cigarette/Vaping Use: Never Used Substance Use Type: Marijuana service: No Current occupational status: disabled Meds Allergies Allergy/AdvReac Type Severity Reaction Status Date / Time lisinopril Allergy Unknown ? kidney Verified 04/04/21 13:27 issue possible r/t to this med Active Medications: Current Medications Albuterol Sulfate (Albuterol Sulfate 90 Mcg 8 Gm Inhaler) 2 puff INHALE Q6H PRN PRN Reason: shortness of breath or wheezing Clonazepam (Clonazepam 1 Mg Tablet) 1 mg PO BEDTIME [facility] Last Admin: 05/23/21 22:07 Dose: 1 mg Documented by: Albumin Human (Kedbumin 25 %) 100 mls @ 100 mls/hr IV Q6H [facility] Stop: 05/24/21 12:44 Last Admin: 05/24/21 06:31 Dose: 100 mls/hr Documented by: Magnesium Oxide (Magnesium Oxide 400 Mg Tablet) 200 mg PO DAILY [facility] Magnesium Oxide (Magnesium Oxide 400 Mg Tablet) 800 mg PO DAILY [facility] Last Admin: 05/23/21 19:22 Dose: 800 mg Documented by: Multivitamins/Vitamin C (Multivitamin Tablet) 1 tab PO DAILY [facility] Non-Formulary Medication (Buprenorphine [Butrans]) 1 patch TRANSDERMA Q7D [facility] Omeprazole (Omeprazole 20 Mg Capsule.Dr) 20 mg PO DAILY@0630 [facility] Last Admin: 05/24/21 06:39 Dose: Not Given Documented by: Sodium Chloride (0.9 % Sodium Chloride Flush 3 Ml Syringe) 3 ml IVFLUSH QSHIFT [facility] Last Admin: 05/24/21 01:08 Dose: 3 ml Documented by: Zinc Sulfate (Zinc Sulfate 220 Mg Capsule) 220 mg PO DAILY [facility] Physical Exam Vital Signs: Vital Signs: Last Vital Signs Temp 97.8 F 05/24/21 00:57 Pulse 88 05/24/21 00:57 Resp 15 05/24/21 00:57 BP 111/66 05/24/21 00:57 Pulse Ox 98 05/24/21 00:57 BMI result Body Mass Index 32.3 Const: General: no acute distress, ill appearing and other (pale) Nutritional Appearance: obese Orientation/consciousness: patient oriented x3 Limitations: no limitations HENMT: Head: Yes normal to inspection Ears: hearing grossly normal bilaterally Eyes: Sclerae: sclerae normal Pupils: Equal, round and reactive pupils present Neck: Neck: Yes normal visual inspection Chest: Chest palpation & inspection: normal inspection of the chest Resp: Effort & Inspection: normal respiratory effort Auscultation: clear to auscultation bilaterally Cardio: Palpation: normal PMI Rate: regular rate Rhythm: regular rhythm Heart sounds: S1 normal heart sound present, S2 normal heart sound present and no murmurs GI: Inspection: Yes distended Palpation (GI): Soft to palpation, nontender, No hepatosplenomegaly present and Ascites present Auscultation: normal bowel sounds Rectal Exam - Male: Yes deferred Skin: General skin exam: no rashes or lesions noted Neuro: General: patient oriented x3, gait normal and moves all extremities Cranial nerves: Yes Equal, round and reactive pupils present Extrem: General: Yes pedal edema and Yes venous stasis dermatitis Psych: Appearance: grossly normal Mental Status: mental status grossly normal Results Labs CBC & Chem 7: 05/24/21 17:54 05/24/21 17:54 Labs: Short CBC 05/24/21 Range/Units 05:42 Hgb 6.1 L* (14.0-18.0) g/dl Hct 18.3 L* (42.0-52.0) % BMP 05/23/21 05/23/21 05/23/21 16:15 18:52 21:56 Sodium 140 138 Potassium 2.6 L 3.8 D 3.3 Chloride 108 109 H Carbon Dioxide 23 22 BUN 18 H 18 H Creatinine 1.66 H 1.55 H Calcium 7.4 L 7.1 L 05/24/21 05:42 Sodium 141 Potassium 3.0 L Chloride 110 H Carbon Dioxide 24 BUN 17 H Creatinine 1.51 H Calcium 7.5 L Liver Function 05/23/21 Range/Units 16:15 Total Bilirubin 1.0 (0.0-1.0) mg/dL Direct Bilirubin 0.5 (0.0-0.5) mg/dL AST 25 (5-37) U/L ALT 11 (0-40) U/L Alkaline Phosphatase 119 H D (39-117) U/L Albumin 1.9 L (3.5-5.0) g/dL Assessment and Plan (1) Ascites: Status: Acute (2) Cirrhosis: Qualifiers: Ascites presence: with ascites Hepatic cirrhosis type: alcoholic cirrhosis Qualified Code(s): K70.31 - Alcoholic cirrhosis of liver with ascites Status: Acute (3) Elevated LFTs: Status: Acute (4) Anemia: Status: Acute Plan 55 YM with hypokalemia, ascites, cirrhosis, hypertension, COPD, CAD and cardiomyopathy Pt has decompensated cirrhosis (attributed to ETOH) complicated by ascites, renal insufficiency and thrombocytopenia Past evaluation with BOLIVAR, AMA, ASMA, SLA, ceruloplasmin, alpha-1 antitrypsin and hepatitis-B and C and celiac serologies was negative. Patient was admitted to [facility] [place] with new onset ascites in January 2021. He has been followed by Dr. Arboleda since February 2021. He has a known hx of non-compliance to requests to come to the ED for evaluation and admission for management of severe anemia and electrolyte imbalance. Pt came for a large volume paracentesis on 05/23/2021 as an outpatient. Potassium was 2.6 and patient was advised to go to [facility] for correction of hypokalemia and he reluctantly complied. Last paracentesis was on 05/13/2021 - ascitic fluid analysis was consistent with portal hypertension (SAAG ration of 1.3) and negative for SBP Pt noted to have acute on chronic macrocytic anemia of unclear etiology. RECOMMENDATIONS: 1. Transfuse 2 units of PRBC 2. Large Volume Paracentesis by IR 3. Pt was advised further evaluation of anemia by EGD and colonoscopy. Patient is willing to schedule the procedures as an outpatient. 4. Since pt has recurrent hypokalemia, advise decreasing Furosemide to 40 mg once a day(instead of twice daily) and increase spironolactone from 50 to 100 mg daily. Repeat electrolytes and Cr on 05/27/21. 5. He will need periodic LVP as an outpatient for management of ascites. Procedures Date of Service Date of Service: 05/24/21
--- NOTE | 2021-05-24 08:21 | P.PNIM_ITS ---
Subjective Subjective Date of Service: 05/24/21 Interval History: anemia , ascitis Review of Systems Patient going for paracentesis Anemia is slightly worse than before Denies any gross bleeding on melena Denies shortness of breath or chest pain Physical Exam Vital Signs: Vital Signs: Last Vital Signs Temp 98.2 F 05/24/21 08:05 Pulse 94 05/24/21 08:05 Resp 14 05/24/21 08:05 BP 105/62 05/24/21 08:05 Pulse Ox 94 05/24/21 08:05 BMI result Body Mass Index 32.3 Appearance: Alert.? Oriented X3.? not in distress.? Eyes: Pupils equal, round and reactive to light.? Sclera nonicteric.? ENT: Pharynx normal.? Moist mucous membranes. cvs: rrr, [id number]. res: clear to auscultation ,no rhonchii or wheezing abd: no rebound or guarding ,nt, bs present. ext pulses present , no cyanosis , has b/l lower ext chronic venostasis type changes, mild edema. neuro: axo3 , nonfocal. Objective Data Active Medications Albuterol Sulfate (Albuterol Sulfate 90 Mcg 8 Gm Inhaler) 2 puff INHALE Q6H PRN PRN Reason: shortness of breath or wheezing Clonazepam (Clonazepam 1 Mg Tablet) 1 mg PO BEDTIME [facility] Last Admin: 05/23/21 22:07 Dose: 1 mg Documented by: SEDA-HETAL Albumin Human (Kedbumin 25 %) 100 mls @ 100 mls/hr IV Q6H [facility] Stop: 05/24/21 12:44 Last Infusion: 05/24/21 07:41 Dose: 0 mls/hr Documented by: ERINNMALIR Magnesium Oxide (Magnesium Oxide 400 Mg Tablet) 200 mg PO DAILY [facility] Magnesium Oxide (Magnesium Oxide 400 Mg Tablet) 800 mg PO DAILY [facility] Last Admin: 05/23/21 19:22 Dose: 800 mg Documented by: ALYSA Multivitamins/Vitamin C (Multivitamin Tablet) 1 tab PO DAILY [facility] Non-Formulary Medication (Buprenorphine [Butrans]) 1 patch TRANSDERMA Q7D [facility] Omeprazole (Omeprazole 20 Mg Cody.) 20 mg PO DAILY@0630 [facility] Last Admin: 05/24/21 06:39 Dose: Not Given Documented by: JOHN Non-Admin Reason: Patient Refused Sodium Chloride (0.9 % Sodium Chloride Flush 3 Ml Syringe) 3 ml IVFLUSH QSHIFT [facility] Last Admin: 05/24/21 07:30 Dose: Not Given Documented by: LEONARDO Non-Admin Reason: Med Not Available Zinc Sulfate (Zinc Sulfate 220 Mg Capsule) 220 mg PO DAILY [facility] Labs CBC & Chem 7: 05/24/21 05:42 05/24/21 05:42 Labs: Laboratory Results - last 24 hr 05/23/21 05/23/21 05/23/21 16:15 17:44 18:52 Anion Gap 12 11 L Estim Creat Clear Calc 61.5 65.9 Estimated GFR 44 47 Random Glucose 91 82 Calcium 7.4 L 7.1 L Magnesium 1.1 L* Iron 84 TIBC 102 L % Saturation 82 H Unsat Iron Binding 18 Total Bilirubin 1.0 Direct Bilirubin 0.5 AST 25 ALT 11 Alkaline Phosphatase 119 H D Total Protein 6.2 L Albumin 1.9 L COVID-19 ([facility]) Negative COVID-19 Clin Com See Note Crossmatch 05/24/21 05/24/21 05:42 07:47 Anion Gap 10 L Estim Creat Clear Calc 67.7 Estimated GFR 49 Random Glucose 85 Calcium 7.5 L Magnesium Iron TIBC % Saturation Unsat Iron Binding Total Bilirubin Direct Bilirubin AST ALT Alkaline Phosphatase Total Protein Albumin COVID-19 ([facility]) COVID-19 Clin Com Crossmatch See Detail Assessment and Plan Plan 55-year-old male with multiple medical comorbidities came to the hospital- ascites slated to cirrhosis, hypokalemia probably related to poor oral intake and diuretics. 1. Cirrhosis probably related to alcohol Ascitis :? Patient will need paracentesis tap in the morning NPO past midnight INR is 1.2 Hypoalbuminemia probably secondary to poor oral intake and liver disease. Patient says that he still drinks alcohol on and off. Will adjust Lasix and spironolactone dosing as per GI. 2. Anemia:? Probably multifactorial Macrocytic Recent folate and B12 normal Patient denies any gross bleeding recently. Iron panel reviewed seems like anemia of chronic disease: GI recommended to transfuse 2 PRBC since H&H is around 6.1 today. Will adjust omeprazole to b.i.d. Gi eval for ascitis and anemia. 3. CKD:? Probably stage III In the setting of anemia/CKD nephrology evaluation noted -. 4. Opioid use on buprenorphine 5. Hypokalemia and hypomagnesemia:?repleted and improving added potassium replcaemnets ?DVT prophylaxis:? Mechanical devices since has anemia. Quality VTE VTE Risk Level:: Medical - moderate - high VTE Device Contraindication: N/A - Device Ordered VTE Drug Contraindication: N/A - Med Ordered
--- NOTE | 2021-05-24 08:28 | PC.NURSE ---
Pt received from shift nurse manager: Pt AOx4, and apleness noted. NSR to sinus trae noted. Lungs diminished. Pt abd very round, tight and non-tender. SSS report given, and pt to go to EGD with estimated time around 1200.
[2021-05-24 08:32] LABS: INTERNATIONAL NORM RATIO 1.4 (0.9-1.1); Prothrombin Time 16.4 SEC (9.9-13.0)
[2021-05-24] MEDS: Magnesium Oxide 400 MG TABLET 800 MG PO (08:43)
[2021-05-24] MEDS: Magnesium Oxide 400 MG TABLET 200 MG PO (08:43)
[2021-05-24] MEDS: Zinc Sulfate 220 MG CAPSULE PO (08:43)
[2021-05-24] MEDS: Multivitamin TABLET 1 TAB PO (08:43)
--- NOTE | 2021-05-24 12:34 | PC.NURSE ---
Pt transported with PCT and monitor to SSS for paracentesis, as pt was still receiving first unit of blood transfusion. Upon arrival to [facility], completion of blood transfusion noted, and final vitals received.
--- NOTE | 2021-05-24 13:14 | MHC.CM.PN ---
Attempted to meet with patient in regards to discharge planning. Patient currently sleeping. Attempted to reach patient's , Angie via telephone at [phone]. Left message requesting return telephone call. IMM explained and sent via certified mail. HCP verified to be on file. Patient is active with [facility]. Spoke with Opal at [facility]. He does not receive any services from them at this time. Case management assessment completed using medical record. Continue to monitor for d/c needs.
[2021-05-24] MEDS: Lidocaine HCl 1 % MPF 5 ML VIAL SUBCUT (13:37)
--- NOTE | 2021-05-24 14:05 | PC.NURSE ---
Pt returned back SSS/paracentesis: 9.5L fluid removed
[2021-05-24 14:07] LABS: MN% 94.8 %; PMN% 5.2 %; WBC Peritoneal Fluid 0.036 X10*3/uL
[2021-05-24 14:14] LABS: RBC Peritoneal Fluid < 0.002 X10*6/uL
[2021-05-24 14:15] LABS: Mean Corpuscular HGB Conc 32.8 g/dl (31.0-36.0); Mean Corpuscular Hemoglobin 32.6 pg (27.0-33.0); Mean Corpuscular Volume 99.5 fL (80.0-98.0); Mean Platelet Volume 10.8 fL (9.4-12.4); Platelet Count 131 X10*3/uL (160-400); White Blood Count 3.6 X10*3/uL (4.8-10.8)
[2021-05-24 14:30] LABS: BF Shift QC OK YES; Basophils Peritoneal Fl 0 %; Eosinophils Peritoneal Fl 0 %; Lymphocyte Peritoneal Fl 22 %; Monocytes Peritoneal Fl 20 %; Neutrophils Peritoneal Fluid 1 %; Other Peritioneal Fl 57 %
[2021-05-24] MEDS: Omeprazole 20 MG CAPSULE.DR PO (15:13)
[2021-05-24] MEDS: Potassium Chloride Packet 20 MEQ PACKET PO (15:13)
[2021-05-24] MEDS: Potassium Chloride Packet 20 MEQ PACKET 40 MEQ PO (15:13)
--- NOTE | 2021-05-24 15:18 | P.DS_ITS ---
DS: Providers Provider Date of Service: 05/24/21 Date of admission: 05/23/21 18:24 Primary care physician: Enio Gabriel PA-C Consults: 05/23/21 18:32 Consult to Gastroenterology Routine Consulting Provider: Ailyn Castro Reason for consultation: anemia , liver dis with ascitis Has provider been notified: No 05/23/21 18:33 Consult to Nephrology Routine Consulting Provider: Bernard Rodgers Reason for consultation: anemia /ckd Has provider been notified: No DS: Diagnosis Discharge Diagnosis (1) Hypokalemia: Status: Acute (2) Ascites: Status: Acute (3) Anemia: Status: Acute DS: Summary Hospital Course Hospital Course: 55-year-old male with multiple comorbidities including liver cirrhosis, microcytic anemia, cardiomyopathy, hypogonadism, obesity, history of CHF:? Came to the hospital because patient ascites tap, during that time labs were done and his potassium found to be 2.6, so deferred ascites tap for the morning.? And patient was sent to the ED:? ED physician discussed the case with GI and recommended admission for management of hypokalemia as well as ascites. Patient says that otherwise feeling well but generally feeling weak, also has discomfort due to ascites. His last paracentesis was 05/13/2021-12 L fluid was drained. Denies any new complaint of chest pain or shortness of breath or abdominal pain or fever or chills or nausea or vomiting Denies any cough Denies any weakness or numbness. In ED: CBC: H&H is 7.2/21.8 Platelets 158 BUN 18, creatinine 1.66, potassium 2.6, magnesium 1.1 EKG: NSR no new changes In the ED patient received:? 40 mg and of potassium, 20 mg and potassium added p.o. as well as IV. Will add magnesium also. Hospital course: Patient came to the hospital because of electrolytic abnormalities, worsening anemia, cirrhosis/ascites: Patient's electrolytes were repleted aggressively seems to be improved. Patient received 2 PRBC for anemia, also got paracentesis for ascites: Paracentesis tap-pre renal and he does not seem like infectious, abdominal fluid culture still pending-but patient denies any abdominal pain on and fever chills or any new symptoms and actually came to the hospital for paracentesis only initially. Discussed with the GI: Advised to adjust Lasix to 40 mg daily and spironolactone 100 mg ,we will also add limited potassium low-dose supply as well as add magnesium, patient needs to monitor CBC BMP out patiently with GI in next few days. Further management outpatient as per GI. In addition his omeprazole is also adjusted to 20 b.i.d. in anticipation of outpatient EGD. Further management outpatient as per GI. Patient has CKD: Patient is on diuretic due to ascites and also has history of chf : Monitor renal function and electrolytes closely outpatient with PCP, further management as per PCP. Discussed with patient in detail if he does not compliant with his medication, fluid intake, use of alcohol-he will be high risk for recurrent hospitalizations. Above management discussed with the patient in detail length he understand and in agreement with the above plan, time spent 50 minutes and 50% time spent on counseling. Significant findings: As above. Procedures performed: None. Treatment and response: As above. Complications: None. Time Spent with Patient Time attestation: Total time spent providing and/or coordinating discharge services: Discharge coordination time: Greater than 30 minutes Quality: Stroke Does the patient have a stroke diagnosis?: No Physical Exam Vital Signs: Vital Signs: Last Vital Signs Temp 99 F 05/24/21 12:33 Pulse 94 05/24/21 12:33 Resp 16 05/24/21 12:33 BP 113/69 05/24/21 12:33 Pulse Ox 97 05/24/21 12:33 BMI result Body Mass Index 32.3 Appearance: Alert.? Oriented X3.? not in distress.? Eyes: Pupils equal, round and reactive to light.? Sclera nonicteric.? ENT: Pharynx normal.? Moist mucous membranes. cvs: rrr, [id number]. res: clear to auscultation ,no rhonchii or wheezing abd: no rebound or guarding ,nt, bs present. ext pulses present , no cyanosis , has b/l lower ext chronic venostasis type changes. neuro: axo3 , nonfocal. DS: Data Data Completed and Pending Labs on day of discharge: Laboratory Results - last 24 hr 05/23/21 05/23/21 05/23/21 16:15 17:44 18:52 WBC RBC Hgb Hct MCV MCH MCHC RDW Plt Count MPV Absolute Nucleated RBC Nucleated RBC % (auto) PT INR Sodium 140 138 Potassium 2.6 L 3.8 D Chloride 108 109 H Carbon Dioxide 23 22 Anion Gap 12 11 L BUN 18 H 18 H Creatinine 1.66 H 1.55 H Estim Creat Clear Calc 61.5 65.9 Estimated GFR 44 47 Random Glucose 91 82 Calcium 7.4 L 7.1 L Magnesium 1.1 L* Iron 84 TIBC 102 L % Saturation 82 H Unsat Iron Binding 18 Total Bilirubin 1.0 Direct Bilirubin 0.5 AST 25 ALT 11 Alkaline Phosphatase 119 H D Total Protein 6.2 L Albumin 1.9 L Peritoneal WBC Peritoneal RBC Periton Neutrophils Periton Lymphocytes Peritoneal Monocytes Peritoneal Eosinophils Peritoneal Basophils Peritoneal Other Cells COVID-19 ([facility]) Negative COVID-19 [facility] See Note Blood Type Antibody Screen Crossmatch 05/23/21 05/24/21 05/24/21 21:56 05:42 05:42 WBC 3.6 L RBC 1.90 L Hgb 6.1 L* Hct 18.3 L* MCV 99.5 H MCH 32.6 MCHC 32.8 RDW 18.0 H Plt Count 131 L MPV 10.8 Absolute Nucleated RBC 0.000 Nucleated RBC % (auto) 0.0 PT INR Sodium 141 Potassium 3.3 3.0 L Chloride 110 H Carbon Dioxide 24 Anion Gap 10 L BUN 17 H Creatinine 1.51 H Estim Creat Clear Calc 67.7 Estimated GFR 49 Random Glucose 85 Calcium 7.5 L Magnesium Iron TIBC % Saturation Unsat Iron Binding Total Bilirubin Direct Bilirubin AST ALT Alkaline Phosphatase Total Protein Albumin Peritoneal WBC Peritoneal RBC Periton Neutrophils Periton Lymphocytes Peritoneal Monocytes Peritoneal Eosinophils Peritoneal Basophils Peritoneal Other Cells COVID-19 ([place]) COVID-19 [facility] Blood Type Antibody Screen Crossmatch 05/24/21 05/24/21 05/24/21 07:47 08:05 13:00 WBC RBC Hgb Hct MCV MCH MCHC RDW Plt Count MPV Absolute Nucleated RBC Nucleated RBC % (auto) PT 16.4 H INR 1.4 H Sodium Potassium Chloride Carbon Dioxide Anion Gap BUN Creatinine Estim Creat Clear Calc Estimated GFR Random Glucose Calcium Magnesium Iron TIBC % Saturation Unsat Iron Binding Total Bilirubin Direct Bilirubin AST ALT Alkaline Phosphatase Total Protein Albumin Peritoneal WBC 0.036 Peritoneal RBC < 0.002 Periton Neutrophils 1 Periton Lymphocytes 22 Peritoneal Monocytes 20 Peritoneal Eosinophils 0 Peritoneal Basophils 0 Peritoneal Other Cells 57 COVID-19 ([facility]) COVID-19 Clin Com Blood Type O Positive Antibody Screen NEGATIVE Crossmatch See Detail Discharge Plan Discharge Anticipated Discharge Date/Time: 05/24/21 18:46 Patient Disposition: Home Health Service Discharge Diagnosis: hypokalemia , cirrosis /ascitis , anemia Referrals: [facility] [Other] - 4 Weeks (The agency will call you to arrange a visit. ) Enio Gabriel PA-C [Primary Care Provider] - 1 Week Discharge Medications: New magnesium oxide 400 mg (241.3 mg magnesium) Tablet 800 mg PO DAILY Qty: 30 0RF potassium chloride 10 mEq capsule, extended release 10 meq PO DAILY Qty: 3 0RF Continued albuterol sulfate [Ventolin HFA] 90 mcg/actuation HFA aerosol inhaler 2 puff inhalation Q6H PRN (Reason: shortness of breath or wheezing) Qty: 18 5RF zinc sulfate 50 mg zinc (220 mg) tablet 50 mg PO DAILY Qty: 60 0RF vitamin A palmitate 10,000 unit tablet 10,000 unit PO DAILY Qty: 30 1RF multivitamin [One Daily Multivitamin] Tablet 1 tab PO DAILY Qty: 60 3RF magnesium 200 mg tablet 200 mg PO DAILY Qty: 30 0RF clonazepam 1 mg tablet 1 mg PO DAILY 30 Days Qty: 30 0RF buprenorphine [Butrans] 20 mcg/hour patch weekly 1 patch transdermal Q7D 28 Days Qty: 4 1RF Rx Instructions: PAIN CONTROL- Changed furosemide 40 mg tablet 40 mg PO DAILY 30 Days Qty: 30 1RF spironolactone 50 mg tablet 100 mg PO DAILY Qty: 60 2RF omeprazole 20 mg capsule,delayed release(DR/EC) 20 mg PO BIDWMEAL Qty: 60 3RF Discharge Orders: Discharge Order (Routine); Ordered 05/24/21 Ordered By: Oskar David Diet: advance to usual diet Activity on Discharge: As tolerated Stand Alone Forms: Patient Portal Discharge page Care Plan Goals: Patient came to the hospital because of electrolytic abnormalities, worsening anemia, cirrhosis/ascites: Patient's electrolytes were repleted aggressively seems to be improved. Patient received 2 PRBC for anemia, also got paracentesis for ascites: Paracentesis tap-pre renal and he does not seem like infectious, abdominal fluid culture still pending-but patient denies any abdominal pain on and fever chills or any new symptoms and actually came to the hospital for paracentesis only initially. Discussed with the GI: Advised to adjust Lasix to 40 mg daily and spironolactone 100 mg ,we will also add limited potassium low-dose supply as well as add magnesium, patient needs to monitor CBC BMP out patiently with GI in next few days. Further management outpatient as per GI. In addition his omep razole is also adjusted to 20 b.i.d. in anticipation of outpatient EGD. Further management outpatient as per GI. Patient has CKD: Patient is on diuretic due to ascites and also has history of chf : Monitor renal function and electrolytes closely outpatient with PCP, further management as per PCP. nephrology and GI - arrange outpatient appointmnet and labs. Health Concerns: As above. Plan of Treatment: As above. Assessment: As above. Discharge Date/Time: 05/24/21 19:56
[2021-05-24 15:25] LABS: Folate 9.8 ng/mL (> or = 4.0); Vitamin B12 509 pg/mL (200-900)
[2021-05-24 16:05] LABS: Magnesium 1.5 mg/dL (1.6-2.6)
[2021-05-24 17:15] LABS: Ferritin 353 ng/mL (20-250)
[2021-05-24] MEDS: Albumin Human 25 % 50 ML 100 ML IV (17:40)
[2021-05-24] MEDS: Magnesium Sulfate/D5W 1 GM/100 ML PIGGYBACK IV (17:40)
[2021-05-24 18:02] LABS: Hematocrit 25.6 % (42.0-52.0); Hemoglobin 8.6 g/dl (14.0-18.0); Mean Corpuscular HGB Conc 33.6 g/dl (31.0-36.0); Mean Corpuscular Hemoglobin 31.9 pg (27.0-33.0); Mean Corpuscular Volume 94.8 fL (80.0-98.0); Mean Platelet Volume 9.5 fL (9.4-12.4); Platelet Count 122 X10*3/uL (160-400); Red Cell Distribution Width 17.8 % (11.0-16.0); White Blood Count 4.1 X10*3/uL (4.8-10.8)
[2021-05-24 18:18] LABS: Magnesium 1.7 mg/dL (1.6-2.6)
--- NOTE | 2021-05-24 18:35 | PC.NURSE ---
Delay in patient care in terms of labs results. Initial potassium level drawn around 1630. Still pending results by 183. Lab called, and new order placed by lab, to be redone. Due to delay, pt wants to sign out AMA. MD Gresham made aware.
[2021-05-24 18:37] LABS: Potassium 3.6 mmol/L (3.3-5.1)
[2021-05-25 07:08] LABS: Total Protein Peritoneal Fluid 0.9
[2021-05-25 07:09] LABS: Glucose Peritoneal Fluid 97
--- NOTE | 2021-05-25 07:33 | MHC.CM.PN ---
LATE ENTRY FROM 05/24/2021 AT 16:00: Dr Coleman would like to discharge patient home with [facility]. T/W spoke with Opal at [facility] who is authorizing referral to be sent out. [facility] is able to accept patient.
--- NOTE | 2021-05-25 11:13 | CONS_ITS ---
DATE OF SERVICE: 05/24/2021 REASON FOR CONSULTATION: I was called to see this patient to assist in management of severe hypokalemia. HISTORY OF PRESENT ILLNESS: To summarize, Cornelius is a 55-year-old man with a history of cirrhosis of liver with significant ascites, who undergoes regular paracentesis. He was brought to the hospital because of severe hypokalemia. He was on furosemide 40 mg twice a day. At the time of admission, he had severe anemia and currently undergoing blood transfusion. He has not undergone a paracentesis yet. He has a history of acute kidney injury and at present there has been a bump in the serum creatinine from his baseline. Ongoing. PAST MEDICAL HISTORY: Ongoing medical problems include history of anemia, ascites, cardiomyopathy, congestive heart failure, cirrhosis, avascular necrosis of femoral epiphysis, obesity. FAMILY HISTORY: Not significant for this admission. There is a family history of coronary artery disease. PAST SURGICAL HISTORY: Bilateral hip replacement. SOCIAL HISTORY: History of alcohol intake. He smokes cigarettes and also use of marijuana. ALLERGIES: HE IS ALLERGIC TO LISINOPRIL, EXACT NATURE IS UNKNOWN. MEDICATIONS: At the time of admission include albuterol, potassium, clonazepam, Lasix 40 b.i.d., spironolactone, omeprazole. REVIEW OF SYSTEMS: Positive for abdominal distention. No nausea or vomiting. No diarrhea or constipation. No polyuria or polydipsia. All other systems were reviewed. PHYSICAL EXAMINATION: GENERAL: On examination, Cornelius is a middle-aged man, who appears ill. NECK: Supple. No JVD. HEENT: Mucosa is moist. LUNGS: Air entry equal. No rales. HEART: S1, S2. No gallop. ABDOMEN: Distended, nontender. Bowel sounds heart. NEURO: Alert and awake. No asterixis. EXTREMITIES: No significant edema. No rash. No clubbing. VITAL SIGNS: Blood pressure was 106/60, pulse 93 per minute. LABORATORY DATA: Sodium 141, potassium 3.0, BUN 17, creatinine 1.51, calcium 7.5, magnesium 1.1. Hemoglobin was 7.2 on admission and 6.1 as of this morning. Platelet count 158,000. IMPRESSION: 55-year-old man with ascites, comes with severe anemia and hypokalemia. Hypokalemia is most likely due to potassium losses due to the loop diuretic. However, GI losses should be considered as well. As well as acute kidney injury superimposed on chronic kidney disease. Acute kidney injury is mostly due to hypoperfusion. Obstruction cannot be ruled out yet. RECOMMENDATIONS: My recommendation is to hold the Lasix for the time being, I agree with continuing spironolactone. Replace potassium orally along with magnesium. Maintain systolic blood pressure more than 100 mmHg and continue to avoid nephrotoxic agents. We will follow him along with the team. Bernard Rodgers MD BPA/MODL / [id number]
[2021-05-26 22:50] LABS: Hematocrit 18.3 % (42.0-52.0)
== END 2021-05-24 19:56 | disposition home health service (06) | DRG 433 ==
LOC: HO.ED 18:09 → HO.EDOVER 18:49
PROVIDERS: Internal Medicine Gastroenterology; Nurse Practitioner Family; Admitting Provider Internal Medicine; Emergency Provider Internal Medicine; PCP Physician Assistant; Visit Provider Internal Medicine
DX: K70.31 Alcoholic cirrhosis of liver with ascites (principal); I13.0 Hypertensive heart and chronic kidney disease with heart failure and stage 1 through stage 4 chronic kidney disease, or unspecified chronic kidney disease; I42.9 Cardiomyopathy, unspecified; D63.1 Anemia in chronic kidney disease; E87.6 Hypokalemia; I50.9 Heart failure, unspecified; N18.30 Chronic kidney disease, stage 3 unspecified; I25.10 Atherosclerotic heart disease of native coronary artery without angina pectoris; E83.42 Hypomagnesemia; F17.210 Nicotine dependence, cigarettes, uncomplicated; Z71.6 Tobacco abuse counseling; Z20.822 Contact with and (suspected) exposure to COVID-19; Z79.899 Other long term (current) drug therapy
CPT/HCPCS: 36415; 49083; 80048; 80076; 82607; 82728; 82746; 82945; 83540; 83735; 84132; 84157; 85014; 85018; 85027; 85610; 86850; 86900; 86901; 86923; 87071; 87073; 87205; 87635; 89051; 93005; 96365; 99285; J3475; P9016; P9047

== ENCOUNTER 2021-06-02 14:35 | Outpatient (REF) | payer OTHER, SELFPAY ==
[2021-06-02 15:04] LABS: MANUAL DIFF FLAG NO
[2021-06-02 15:19] LABS: Basophils Percent Auto 0.4 % (0-2); Eosinophils Absolute Auto 0.1 X10*3/uL (0.0-0.4); Eosinophils Percent Auto 1.4 % (0-4); Hematocrit 29.7 % (42.0-52.0); Hemoglobin 9.7 g/dl (14.0-18.0); Imm Gran Abs Auto 0.01 X10*3/uL (0.00-0.03); Imm Gran Pct Auto 0.2 % (0.0-0.4); Lymphocytes Absolute Auto 1.7 X10*3/uL (1.2-4.9); Mean Corpuscular HGB Conc 32.7 g/dl (31.0-36.0); Mean Corpuscular Hemoglobin 31.6 pg (27.0-33.0); Mean Corpuscular Volume 96.7 fL (80.0-98.0); Mean Platelet Volume 10.1 fL (9.4-12.4); Monocytes Absolute Auto 0.4 X10*3/uL (0.1-1.2); Monocytes Percent Auto 8.4 % (2-11); Neutrophils Absolute Auto 2.7 x10*3/uL (2.0-8.3); Neutrophils Percent Auto 55.6 % (45-73); Platelet Count 178 X10*3/uL (160-400); Red Blood Count 3.07 X10*6/uL (4.60-5.80); Red Cell Distribution Width 15.7 % (11.0-16.0); White Blood Count 4.9 X10*3/uL (4.8-10.8)
[2021-06-02 16:08] LABS: Alanine Aminotransferase 7 U/L (0-40); Albumin Level 2.3 g/dL (3.5-5.0); Alkaline Phosphatase 117 U/L (39-117); Anion Gap 13 (12-20); Aspartate Amino Transferase 24 U/L (5-37); Bilirubin Total 1.2 mg/dL (0.0-1.0); Blood Urea Nitrogen 10 mg/dL (9-16); Calcium 7.9 mg/dL (8.4-10.2); Carbon Dioxide 27 mmol/L (22-29); Chloride 100 mmol/L (96-108); Estimated Glomerular Filt Rate 58; Glucose Random 135 mg/dL (60-115); Potassium 3.3 mmol/L (3.3-5.1); Sodium 137 mmol/L (135-145); Total Protein 6.6 g/dL (6.5-8.0)
[2021-06-03 18:21] LABS: Haptoglobin 66 mg/dL (43-212)
== END 2021-06-02 14:36 | disposition home or self-care (01) ==
LOC: HO.LAB 14:35
PROVIDERS: Absent Provider Internal Medicine Gastroenterology; PCP Physician Assistant; Visit Provider Internal Medicine Gastroenterology
DX: K70.31 Alcoholic cirrhosis of liver with ascites (principal); K75.81 Nonalcoholic steatohepatitis (NASH); D64.9 Anemia, unspecified; E87.6 Hypokalemia; K70.30 Alcoholic cirrhosis of liver without ascites
CPT/HCPCS: 36415; 80053; 83010; 83735; 85025; 86850; 86900; 86901; 89051

== ENCOUNTER 2021-06-17 14:07 | Outpatient (REF) | payer OTHER, SELFPAY ==
[2021-06-17 15:00] LABS: Hematocrit 27.1 % (42.0-52.0); Mean Corpuscular HGB Conc 33.2 g/dl (31.0-36.0); Mean Corpuscular Volume 96.4 fL (80.0-98.0); Mean Platelet Volume 10.6 fL (9.4-12.4); Platelet Count 151 X10*3/uL (160-400); Red Blood Count 2.81 X10*6/uL (4.60-5.80); Red Cell Distribution Width 16.9 % (11.0-16.0); White Blood Count 5.3 X10*3/uL (4.8-10.8)
== END 2021-06-17 14:08 | disposition home or self-care (01) ==
LOC: HO.LAB 14:07
PROVIDERS: PCP Physician Assistant; Visit Provider Internal Medicine Gastroenterology
DX: R18.8 Other ascites (principal)
CPT/HCPCS: 36415; 85027

== ENCOUNTER 2021-06-24 07:56 | Day surgery (SDC) | payer OTHER, SELFPAY ==
--- NOTE | ~2021-06-24 | US_ITS ---
EXAMINATION: US-GUIDED PARACENTESIS CLINICAL INFORMATION: Ascites. COMPARISON: Previous exams, most recent 05/24/2021. TECHNIQUE: The procedure and the risks and benefits including bleeding, infection and low blood pressure were discussed with the patient and informed consent was obtained. The right lower quadrant was prepped and draped in the usual sterile fashion. The skin and soft tissues were anesthetized with 1% lidocaine plain. Using ultrasound guidance and a 5-[place]izen [place] Rapid Centesis catheter, access to the ascitic fluid was obtained. 8.5 liters of clear yellow fluid was removed. No diagnostic specimen was sent. The patient received albumin 25 grams intravenously during the procedure. FINDINGS: There is a large amount of ascites. US/US paracentesis abd w/image IMPRESSION: Ultrasound-guided paracentesis.
[2021-06-24 08:11] VITALS: BMI 33.0
[2021-06-24 08:31] LABS: MANUAL DIFF FLAG NO
[2021-06-24 08:32] LABS: Basophils Percent Auto 0.5 % (0-2); Hematocrit 28.3 % (42.0-52.0); Hemoglobin 9.3 g/dl (14.0-18.0); Imm Gran Abs Auto 0.01 X10*3/uL (0.00-0.03); Imm Gran Pct Auto 0.2 % (0.0-0.4); Lymphocytes Absolute Auto 1.3 X10*3/uL (1.2-4.9); Mean Corpuscular HGB Conc 32.9 g/dl (31.0-36.0); Mean Corpuscular Volume 97.3 fL (80.0-98.0); Monocytes Absolute Auto 0.3 X10*3/uL (0.1-1.2); Monocytes Percent Auto 7.6 % (2-11); NRBC Pct Auto 0.5 /100WBC (0.0-0.2); Neutrophils Absolute Auto 2.7 x10*3/uL (2.0-8.3); Neutrophils Percent Auto 62.7 % (45-73); Platelet Count 143 X10*3/uL (160-400); Red Blood Count 2.91 X10*6/uL (4.60-5.80); Red Cell Distribution Width 18.2 % (11.0-16.0); White Blood Count 4.3 X10*3/uL (4.8-10.8)
[2021-06-24 08:54] LABS: INTERNATIONAL NORM RATIO 1.1 (0.9-1.1); Prothrombin Time 12.4 SEC (9.9-13.0)
[2021-06-24 08:56] LABS: Partial Thromboplastin Time 32.3 SEC (24.1-38.0)
--- NOTE | 2021-06-24 10:09 | HO.RADPN ---
RADIOLOGY Narrative Narrative: RLQ paracentesis performed using 5 fr catheter. L clear yellow fluid removed. No specimen sent. 25g IV albumin given
[2021-06-24] MEDS: Lidocaine HCl 1 % MPF 5 ML VIAL SUBCUT (10:20)
[2021-06-24 10:23] VITALS: BP 110/61; PULSE 105; RESP 18; TEMP 37.2; O2SAT 99
[2021-06-24 10:38] VITALS: BP 105/55; PULSE 103; RESP 18; O2SAT 98
[2021-06-24 10:53] VITALS: BP 106/51; PULSE 109; RESP 19; O2SAT 100
[2021-06-24 11:08] VITALS: BP 110/54; PULSE 110; RESP 19; O2SAT 100
[2021-06-24 11:22] VITALS: BP 110/57; PULSE 109; RESP 19; TEMP 36.8; O2SAT 100
== END 2021-06-24 11:27 | disposition home or self-care (01) ==
PROVIDERS: Radiology Diagnostic Radiology; PCP Physician Assistant; Visit Provider Radiology Diagnostic Radiology
DX: R18.8 Other ascites (principal); K74.60 Unspecified cirrhosis of liver; D53.9 Nutritional anemia, unspecified; I50.9 Heart failure, unspecified; J44.9 Chronic obstructive pulmonary disease, unspecified; Z79.899 Other long term (current) drug therapy; Z96.643 Presence of artificial hip joint, bilateral
CPT/HCPCS: 36415; 49083; 85025; 85610; 85730; P9047

== ENCOUNTER 2021-06-30 22:16 | Emergency (ER) | payer OTHER, SELFPAY ==
--- NOTE | ~2021-06-30 | CT_ITS ---
EXAMINATION: CT HEAD WITHOUT CONTRAST CLINICAL INFORMATION: Pain COMPARISON: None TECHNIQUE: Contiguous axial imaging was performed from the skull base to vertex without intravenous administration of contrast. This CT examination was performed using dose optimization techniques as appropriate, variously including the following: *Automated exposure control *Adjustment of mA and/or kV according to patient size (this includes techniques or standardized protocols for targeted exams where dose is matched to indication/reason for exam; i.e. extremities or head) *Use of iterative reconstruction technique DLP: 1477 mGy-cm FINDINGS: There is no evidence of acute intracranial hemorrhage or territorial infarction. No abnormal mass effect or midline shift is seen. [place] to white matter differentiation is well preserved. No extra-axial fluid collections are identified. The ventricles are normal in size. There is no abnormal attenuation within the brain parenchyma. No acute fracture is seen. There is left occipital scalp soft tissue swelling and tiny foci of gas. Mucous retention cysts noted in the sphenoid and maxillary sinuses. Right mastoid air cell opacification also noted. CT/CT head/brain wo con IMPRESSION: No acute intracranial pathology. Left occipital scalp injury.
--- NOTE | ~2021-06-30 | CT_ITS ---
EXAMINATION: CT CERVICAL SPINE WITHOUT CONTRAST CLINICAL INFORMATION: Fall, pain COMPARISON: None TECHNIQUE: Multidetector helical imaging was performed through the cervical spine. Coronal and sagittal reformatted images were created. This CT examination was performed using dose optimization techniques as appropriate, variously including the following: *Automated exposure control *Adjustment of mA and/or kV according to patient size (this includes techniques or standardized protocols for targeted exams where dose is matched to indication/reason for exam; i.e. extremities or head) *Use of iterative reconstruction technique DLP: 1477 mGy-cm FINDINGS: There is anatomic alignment of the vertebral bodies and posterior elements. Vertebral body heights are maintained. Intervertebral disc spaces are relatively well preserved. No evidence of acute fracture. No prevertebral soft tissue swelling. Visualized portions of the lung apices show no pneumothorax. The thyroid gland is unremarkable. Partially visualized right mastoid air cells appear opacified. CT/CT cervical spine wo con IMPRESSION: No acute findings identified. Fleischner guidelines were followed.
--- NOTE | ~2021-06-30 | CT_ITS ---
EXAMINATION: CT CHEST WITHOUT CONTRAST CLINICAL INFORMATION: Fall, pain COMPARISON: 10/17/2019 TECHNIQUE: Multidetector volumetric CT imaging of the chest was done. Axial MIP volume rendering provided. Sagittal and coronal reformatted images were obtained. This CT examination was performed using dose optimization techniques as appropriate, variously including the following: *Automated exposure control *Adjustment of mA and/or kV according to patient size (this includes techniques or standardized protocols for targeted exams where dose is matched to indication/reason for exam; i.e. extremities or head) *Use of iterative reconstruction technique DLP: 1477 mGy-cm FINDINGS: LUNGS: Redemonstrated irregularly-shaped and partially curvilinear right apical opacity which appears stable since 10/17/2019. The central portion of this opacity measures approximately 7 mm. No acute regions of consolidation. Mild bronchial wall thickening is noted. Curvilinear atelectasis is present in the basilar right lower lobe. MEDIASTINUM: The visualized thyroid gland is unremarkable. There are subcentimeter mediastinal lymph nodes within the range of normal variation. Cardiac size is within normal limits; no pericardial effusion. Small amount of fluid herniating through the hiatus. PLEURA: No pneumothorax or pleural effusion. AXILLA: No lymphadenopathy. UPPER ABDOMEN: Nodular hepatic contour consistent with cirrhosis. Moderate volume of ascites in the visualized upper abdomen. OSSEOUS STRUCTURES: Degenerative changes are noted in the spine. CT/CT chest wo con IMPRESSION: 1. No acute traumatic findings identified. 2. Stable irregularly-shaped/curvilinear right apical opacity, suggestive of scarring. 3. Mild bronchial wall thickening. 4. Partially visualized ascites in the upper abdomen. Nodular hepatic contour consistent with cirrhosis. Fleischner guidelines were followed.
[2021-06-30 22:27] VITALS: BP 110/76; BP 111/78; PULSE 104; PULSE 105; RESP 20; TEMP 33.6; O2SAT 97; O2SAT 99; BMI 29.9
--- NOTE | 2021-06-30 22:52 | ED.FALL ---
HPI - Fall General Chief Complaint: Fall Stated Complaint: FALL AND ETOH Time Seen by Provider: 06/30/21 22:48 Source: patient Mode of arrival: EMS Limitations: no limitations History of Present Illness HPI Narrative: ETOH slipped and fell getting into car hit back of head on ground couldn't get up, was outside in rain, refuses help with ETOH detox complaint: fall Onset (ago): hour(s) (1) Fall from: standing Fall witnessed: no Place fall occurred: street Loss of consciousness: none Prolonged down time: unclear Symptoms prior to fall: none Context: tripped/slipped Location of injury: head Severity: moderate Quality: dull Associated symptoms (after fall): denies Related Data Previous Rx's Medication Instructions Recorded albuterol sulfate 90 mcg/actuation 2 puff INHALATION Q6H PRN #18 g 10/26/20 aerosol inhaler (Ventolin HFA) multivitamin (One Daily 1 tab PO DAILY #60 tab 04/19/21 Multivitamin) zinc sulfate 50 mg zinc (220 mg) 50 mg PO DAILY #60 tab 04/19/21 tablet magnesium 200 mg tablet 200 mg PO DAILY #30 tab 05/02/21 furosemide 40 mg tablet 40 mg PO DAILY 30 Days #30 cap 05/24/21 omeprazole 20 mg capsule,delayed 20 mg PO BIDWMEAL #60 cap 05/24/21 release potassium chloride 10 mEq 10 meq PO DAILY #3 cap 05/24/21 capsule,extended release spironolactone 50 mg tablet 100 mg PO DAILY #60 tab 05/24/21 buprenorphine 20 mcg/hour weekly 1 patch TRANSDERMAL Q7D 28 Days #4 06/01/21 transdermal patch (Butrans) ea magnesium oxide 400 mg (241.3 mg 800 mg PO DAILY #30 tab 06/02/21 magnesium) tablet clonazepam 1 mg tablet 1 mg PO DAILY 30 Days #30 tab 06/06/21 vitamin A 10,000 unit capsule 1 cap PO DAILY 30 Days #30 cap 06/16/21 Allergies Allergy/AdvReac Type Severity Reaction Status Date / Time lisinopril Allergy Unknown ? kidney Verified 04/04/21 13:27 issue possible r/t to this med Review of Systems Review of Systems: Constitutional : No Fever, No Chills ENT/Mouth : No Ear Pain, No Hoarseness, No sore throat Eyes: No Eye Pain, No Swelling, No Redness, No Foreign Body Cardiovascular : No Chest Pain, No SOB Respiratory : No Cough, No Dyspnea Gastrointestinal : No Nausea, No Vomiting, No Diarrhea, No abdominal Pain Genitourinary : No Dysuria, No Hematuria Musculoskeletal : no joint pain, No Myalgias, No Joint Swelling Skin : pos Skin lacerations, No rash Neuro : No Weakness, No Numbness, No Loss of Consciousness, No Dizziness, No Headache Psych : No Anxiety/Panic, No Depression Heme/Lymph: no easy bruising, no Lymphadenopathy Endocrine : No Polyuria, No Polydipsia All other systems reviewed and are negative [facility] Past Medical History Attestation statement: The following information was validated with the patient. Medical History Anemia Ascites Avascular necrosis of bone Cardiomyopathy CHF (congestive heart failure) Cirrhosis Elevated LFTs History of avascular necrosis of capital femoral epiphysis Hypogonadism Lumbar spondylosis Obesity Obesity (BMI 30-39.9) Sinus tachycardia Spondylosis Surgical History History of hand surgery Hx of bilateral hip replacements Family History Family History Father Heart problem CVD (cardiovascular disease) Myocardial infarction Mother No problems noted. Daughter In good health Son In good health Sister In good health Social History Social History Household Members Other:: Lives with mom Housing: House Alcohol intake: current Alcohol intake frequency: 3 or more drinks per day Patient Tobacco Use Status: Current everyday Tobacco user Tobacco use type: Cigarette Cigarette Packs Per Day: 0.5 Cigarettes Per Day: 10 e-Cigarette/Vaping Use: Never Used Substance Use Type: Marijuana Advance Directives: No service: No Current occupational status: disabled Physical Exam Vital Signs: Vital Signs: Last Vital Signs Temp 98.4 F 07/01/21 05:45 Pulse 108 H 07/01/21 05:45 Resp 18 07/01/21 05:45 BP 95/56 L 07/01/21 05:45 Pulse Ox 96 07/01/21 05:45 BMI result Body Mass Index 29.9 Appearance: Alert. Oriented X3. No acute distress. ETOH odor, slurred speech Eyes: Pupils equal, round and reactive to light. ENT: Pharynx normal. Macerated posterior scalp 4 cm laceration noted Neck: Normal inspection. Neck supple. Collar in place CVS: Normal heart rate and rhythm. Pulses normal. Respiratory: No respiratory distress. Breath sounds normal. Abdomen: Soft and nontender. Ascites noted Skin: Skin warm and dry. Normal skin color. Normal skin turgor. Extremities: 2+ pitting lower extremity edema. No calf ttp Neuro: Oriented X 3. No motor deficit. No sensory deficit. Course Course Course Narrative: after irrigating scalp wound patient noted to have pulsatile bleeding from scalp will continue to observe until he is more awake and sober bleeding from scalp wound has stopped mag repleted hypothermia corrected, up and awake, steady gait, wants to go home, refuses any help with his ETOH use Procedures Laceration Laceration 1: Site: scalp Size (cm): 4 Description: stellate, irregular and contaminated Depth: simple, single layer Pre-repair: wound explored and irrigated extensively Skin layer closed with: nylon Size (cm): 3-0 Number of sutures: 4 Technique: simple, interrupted MDM - Fall MDM Narrative Medical decision making narrative: 55 yo male with CHF, alcoholism, chronic back pain, cirrhosis, here with c/o fall after slipping outside - has head lac and is hypothermic from being outside in the rain - at this time will need lbs, CT head/neck chest for trauma. gamaliel corea ordered. Emergent repair of head laceration. Mechanical fall after ETOH Lab Data Result diagrams: 06/30/21 23:57 06/30/21 23:57 Labs: Lab Results 06/30/21 06/30/21 06/30/21 Range/Units 23:57 23:57 23:57 WBC 7.1 (4.8-10.8) X10*3/uL RBC 3.31 L (4.60-5.80) X10*6/uL Hgb 10.8 L (14.0-18.0) g/dl Hct 33.5 L (42.0-52.0) % MCV 101.2 H (80.0-98.0) fL MCH 32.6 (27.0-33.0) pg MCHC 32.2 (31.0-36.0) g/dl RDW 18.9 H (11.0-16.0) % Plt Count 181 D (160-400) X10*3/uL MPV 9.6 (9.4-12.4) fL Immature Gran % (Auto) 0.4 (0.0-0.4) % Neut % (Auto) 61.6 (45-73) % Lymph % (Auto) 29.7 (20-40) % [place] % (Auto) 7.3 (2-11) % Eos % (Auto) 0.6 (0-4) % Baso % (Auto) 0.4 (0-2) % Lymph # (Auto) 2.1 (1.2-4.9) X10*3/uL [place] # (Auto) 0.5 (0.1-1.2) X10*3/uL Eos # (Auto) 0.0 (0.0-0.4) X10*3/uL Baso # (Auto) 0.0 (0.0-0.2) X10*3/uL Abs Immat Gran (auto) 0.03 (0.00-0.03) X10*3/uL Absolute Neuts (auto) 4.4 (2.0-8.3) x10*3/uL Absolute Nucleated RBC 0.000 (0.0-0.012) X10*3/uL Nucleated RBC % (auto) 0.0 (0.0-0.2) /100WBC PT 12.3 (9.9-13.0) SEC INR 1.1 (0.9-1.1) APTT 32.5 (24.1-38.0) SEC Sodium 138 (135-145) mmol/L Potassium 3.6 (3.3-5.1) mmol/L Chloride 108 (96-108) mmol/L Carbon Dioxide 19 L (22-29) mmol/L Anion Gap 15 (12-20) BUN 10 (9-16) mg/dL Creatinine 0.93 (0.5-1.4) mg/dL Estim Creat Clear Calc 103.0 Estimated GFR > 60 Random Glucose 85 D (60-115) mg/dL Calcium 7.9 L (8.4-10.2) mg/dL Magnesium 1.5 L (1.6-2.6) mg/dL Total Bilirubin 0.9 (0.0-1.0) mg/dL Direct Bilirubin 0.5 (0.0-0.5) mg/dL AST 31 (5-37) U/L ALT 15 (0-40) U/L Alkaline Phosphatase 171 H D (39-117) U/L Total Creatine Kinase 67 (38-174) U/L Total Protein 6.7 (6.5-8.0) g/dL Albumin 2.5 L (3.5-5.0) g/dL Ethyl Alcohol mg/dL COVID-19 ([facility]) (Negative) COVID-19 Clin Com 06/30/21 06/30/21 Range/Units 23:57 23:58 WBC (4.8-10.8) X10*3/uL RBC (4.60-5.80) X10*6/uL Hgb (14.0-18.0) g/dl Hct (42.0-52.0) % MCV (80.0-98.0) fL MCH (27.0-33.0) pg MCHC (31.0-36.0) g/dl RDW (11.0-16.0) % Plt Count (160-400) X10*3/uL MPV (9.4-12.4) fL Immature Gran % (Auto) (0.0-0.4) % Neut % (Auto) (45-73) % Lymph % (Auto) (20-40) % [place] % (Auto) (2-11) % Eos % (Auto) (0-4) % Baso % (Auto) (0-2) % Lymph # (Auto) (1.2-4.9) X10*3/uL [place] # (Auto) (0.1-1.2) X10*3/uL Eos # (Auto) (0.0-0.4) X10*3/uL Baso # (Auto) (0.0-0.2) X10*3/uL Abs Immat Gran (auto) (0.00-0.03) X10*3/uL Absolute Neuts (auto) (2.0-8.3) x10*3/uL Absolute Nucleated RBC (0.0-0.012) X10*3/uL Nucleated RBC % (auto) (0.0-0.2) /100WBC PT (9.9-13.0) SEC INR (0.9-1.1) APTT (24.1-38.0) SEC Sodium (135-145) mmol/L Potassium (3.3-5.1) mmol/L Chloride (96-108) mmol/L Carbon Dioxide (22-29) mmol/L Anion Gap (12-20) BUN (9-16) mg/dL Creatinine (0.5-1.4) mg/dL Estim Creat Clear Calc Estimated GFR Random Glucose (60-115) mg/dL Calcium (8.4-10.2) mg/dL Magnesium (1.6-2.6) mg/dL Total Bilirubin (0.0-1.0) mg/dL Direct Bilirubin (0.0-0.5) mg/dL AST (5-37) U/L ALT (0-40) U/L Alkaline Phosphatase (39-117) U/L Total Creatine Kinase (38-174) U/L Total Protein (6.5-8.0) g/dL Albumin (3.5-5.0) g/dL Ethyl Alcohol 329 H* mg/dL COVID-19 ([facility]) Negative (Negative) COVID-19 Clin Com See Note Discharge Plan Discharge Clinical Impression: Hypomagnesemia Laceration of scalp Qualifiers: Encounter type: initial encounter Qualified Code(s): S01.01XA - Laceration without foreign body of scalp, initial encounter Alcohol intoxication Qualifiers: Complication of substance-induced condition: uncomplicated Qualified Code(s): F10.920 - Alcohol use, unspecified with intoxication, uncomplicated Hypothermia Qualifiers: Encounter type: initial encounter Qualified Code(s): T68.XXXA - Hypothermia, initial encounter Patient Disposition: Home, Self-Care Instructions: Laceration (ED), Alcohol Intoxication (ED), Hypomagnesemia (ED) Additional Instructions: return to ED for any worsening symptoms or concerns sutures out in 7 days IT IS OKAY TO TAKE A SHOWER WITH YOUR SUTURES Prescriptions: No Action albuterol sulfate [Ventolin HFA] 90 mcg/actuation HFA aerosol inhaler 2 puff inhalation Q6H PRN (Reason: shortness of breath or wheezing) Qty: 18 5RF zinc sulfate 50 mg zinc (220 mg) tablet 50 mg PO DAILY Qty: 60 0RF multivitamin [One Daily Multivitamin] Tablet 1 tab PO DAILY Qty: 60 3RF magnesium 200 mg tablet 200 mg PO DAILY Qty: 30 0RF buprenorphine [Butrans] 20 mcg/hour patch weekly 1 patch transdermal Q7D 28 Days Qty: 4 1RF Rx Instructions: PAIN CONTROL- magnesium oxide 400 mg (241.3 mg magnesium) tablet 800 mg PO DAILY Qty: 30 0RF clonazepam 1 mg tablet 1 mg PO DAILY 30 Days Qty: 30 0RF vitamin A 10,000 unit capsule 1 cap PO DAILY 30 Days Qty: 30 3RF furosemide 40 mg tablet 40 mg PO DAILY 30 Days Qty: 30 1RF spironolactone 50 mg tablet 100 mg PO DAILY Qty: 60 2RF omeprazole 20 mg capsule,delayed release(DR/EC) 20 mg PO BIDWMEAL Qty: 60 3RF potassium chloride 10 mEq capsule, extended release 10 meq PO DAILY Qty: 3 0RF Referrals: Physician,Unknown J [Primary Care Provider] - 1 week (suture removal with PCP)
[2021-06-30] MEDS: Lidocaine 4 % Cream KIT 1 APPL TOPICAL (23:15)
[2021-07-01 00:12] LABS: MANUAL DIFF FLAG NO
[2021-07-01 00:16] LABS: Basophils Percent Auto 0.4 % (0-2); Eosinophils Percent Auto 0.6 % (0-4); Hematocrit 33.5 % (42.0-52.0); Hemoglobin 10.8 g/dl (14.0-18.0); Imm Gran Abs Auto 0.03 X10*3/uL (0.00-0.03); Imm Gran Pct Auto 0.4 % (0.0-0.4); Lymphocytes Absolute Auto 2.1 X10*3/uL (1.2-4.9); Lymphocytes Percent Auto 29.7 % (20-40); Mean Corpuscular HGB Conc 32.2 g/dl (31.0-36.0); Mean Corpuscular Hemoglobin 32.6 pg (27.0-33.0); Mean Corpuscular Volume 101.2 fL (80.0-98.0); Mean Platelet Volume 9.6 fL (9.4-12.4); Monocytes Absolute Auto 0.5 X10*3/uL (0.1-1.2); Monocytes Percent Auto 7.3 % (2-11); Neutrophils Absolute Auto 4.4 x10*3/uL (2.0-8.3); Neutrophils Percent Auto 61.6 % (45-73); Platelet Count 181 X10*3/uL (160-400); Red Blood Count 3.31 X10*6/uL (4.60-5.80); Red Cell Distribution Width 18.9 % (11.0-16.0); White Blood Count 7.1 X10*3/uL (4.8-10.8)
[2021-07-01 00:23] LABS: INTERNATIONAL NORM RATIO 1.1 (0.9-1.1); Prothrombin Time 12.3 SEC (9.9-13.0)
[2021-07-01 00:24] VITALS: TEMP 34.8
[2021-07-01 00:26] LABS: Partial Thromboplastin Time 32.5 SEC (24.1-38.0)
[2021-07-01 00:32] LABS: Ethanol 329 mg/dL
[2021-07-01 00:37] LABS: Alanine Aminotransferase 15 U/L (0-40); Albumin Level 2.5 g/dL (3.5-5.0); Alkaline Phosphatase 171 U/L (39-117); Anion Gap 15 (12-20); Aspartate Amino Transferase 31 U/L (5-37); Bilirubin Direct 0.5 mg/dL (0.0-0.5); Bilirubin Total 0.9 mg/dL (0.0-1.0); Blood Urea Nitrogen 10 mg/dL (9-16); Calcium 7.9 mg/dL (8.4-10.2); Carbon Dioxide 19 mmol/L (22-29); Chloride 108 mmol/L (96-108); Estimated Glomerular Filt Rate > 60; Glucose Random 85 mg/dL (60-115); Magnesium 1.5 mg/dL (1.6-2.6); Potassium 3.6 mmol/L (3.3-5.1); Sodium 138 mmol/L (135-145); Total Protein 6.7 g/dL (6.5-8.0)
[2021-07-01 00:40] LABS: COVID-19 Test Negative (Negative)
[2021-07-01 00:53] VITALS: BP 100/59; PULSE 107; RESP 16; TEMP 34.6; O2SAT 99
--- NOTE | 2021-07-01 01:51 | PC.NURSE ---
pt intoxicated, heating blankd still on pt for hypothermia. pt sat drop below 90% when falling asleep. 2l nc placed with good effect sat 100%
[2021-07-01 01:54] VITALS: BP 98/67; PULSE 96; RESP 16
--- NOTE | 2021-07-01 01:58 | PC.NURSE ---
pt family member called juancho pt [facility] [phone]
[2021-07-01 02:00] VITALS: BP 100/65; PULSE 104; RESP 14; O2SAT 98
[2021-07-01] MEDS: Magnesium Sulfate/H2O 2 GM/50 ML PIGGYBACK IV (02:00)
[2021-07-01 03:06] VITALS: BP 109/55; PULSE 115; RESP 14; TEMP 36.8; O2SAT 97
--- NOTE | 2021-07-01 03:10 | PC.NURSE ---
Addendum entered by Guerita Avina 07/01/21 03:11: pt temp 98.6 oral. Original Note: gamaliel corea has been removed temp 09.6
[2021-07-01 05:45] VITALS: BP 95/56; PULSE 108; RESP 18; TEMP 36.9; O2SAT 96
== END 2021-07-01 06:56 | disposition home or self-care (01) ==
PROVIDERS: Emergency Provider Emergency Medicine
DX: S01.01XA Laceration without foreign body of scalp, initial encounter (principal); V48.4XXA Person boarding or alighting a car injured in noncollision transport accident, initial encounter; E83.42 Hypomagnesemia; F10.920 Alcohol use, unspecified with intoxication, uncomplicated; Y90.8 Blood alcohol level of 240 mg/100 ml or more; T68.XXXA Hypothermia, initial encounter; X31.XXXA Exposure to excessive natural cold, initial encounter; R60.0 Localized edema; Z20.822 Contact with and (suspected) exposure to COVID-19; Y93.89 Activity, other specified; Y92.414 Local residential or business street as the place of occurrence of the external cause; Y99.9 Unspecified external cause status
CPT/HCPCS: 12032; 36415; 70450; 71250; 72125; 80048; 80076; 82077; 82550; 83735; 85025; 85610; 85730; 87635; 96365; 96366; 99284; 99285; J3475

== ENCOUNTER 2021-07-04 12:45 | Outpatient (REF) | payer OTHER, SELFPAY ==
--- NOTE | ~2021-07-04 | XR_ITS ---
EXAMINATION: XR hip RT min 2V, XR hip LT min 2V CLINICAL INFORMATION: Reason for Exam PT STATES POSTERIOR BILATERAL HIP PAIN COMPARISON: None TECHNIQUE: Two views of the bilateral hips. XR/XR hip LT min 2V FINDINGS/IMPRESSION: No acute fracture or dislocation. Status post right total hip arthroplasty in anatomic alignment without evidence of hardware failure or complication. There are few osseous fragments noted adjacent to the right hip joint which may reflect sequelae of heterotopic ossification. Status post left hip arthroplasty in anatomic alignment without evidence of hardware fracture or complication. Calcification is noted anterior to the left hip joint space which may reflect sequelae of heterotopic ossification. Soft tissues are unremarkable.
--- NOTE | ~2021-07-04 | XR_ITS ---
EXAMINATION: XR hip RT min 2V, XR hip LT min 2V CLINICAL INFORMATION: Reason for Exam PT STATES POSTERIOR BILATERAL HIP PAIN COMPARISON: None TECHNIQUE: Two views of the bilateral hips. XR/XR hip RT min 2V FINDINGS/IMPRESSION: No acute fracture or dislocation. Status post right total hip arthroplasty in anatomic alignment without evidence of hardware failure or complication. There are few osseous fragments noted adjacent to the right hip joint which may reflect sequelae of heterotopic ossification. Status post left hip arthroplasty in anatomic alignment without evidence of hardware fracture or complication. Calcification is noted anterior to the left hip joint space which may reflect sequelae of heterotopic ossification. Soft tissues are unremarkable.
[2021-07-04 13:14] LABS: Ammonia 28 umol/L (13-55)
[2021-07-04 14:01] LABS: Appearance Urine CLEAR; Color Urine YELLOW; Glucose Urine UA NEG (NEG); Leukocyte Esterase Urine NEG (NEG); Nitrite Urine NEG (NEG); PH 5.5 (5.0-8.0); Urine Blood NEG (NEG); Urine Ketones NEG (NEG); Urine Protein NEG (NEG-TRACE)
[2021-07-04 14:05] LABS: Anion Gap 11 (12-20); Blood Urea Nitrogen 11 mg/dL (9-16); Calcium 8.1 mg/dL (8.4-10.2); Carbon Dioxide 25 mmol/L (22-29); Chloride 104 mmol/L (96-108); Cholesterol 127 mg/dL; Estimated Glomerular Filt Rate 58; Glucose Random 131 mg/dL (60-115); HDL Cholesterol 48 mg/dL; LDL Cholesterol Calculated 71 mg/dl; Magnesium 1.2 mg/dL (1.6-2.6); Potassium 3.9 mmol/L (3.3-5.1); Sodium 136 mmol/L (135-145); Triglycerides 44 mg/dL
[2021-07-04 14:20] LABS: Gamma Glutamyl Transpeptidase 131 U/L (11-51)
[2021-07-04 14:21] LABS: TSH reflex Free T4 2.08 uIU/mL (0.32-4.0); Vitamin D 25-OH Total 13.4 ng/mL (>30)
[2021-07-05 04:56] LABS: HBS Num1 0.56 mIU/mL (0-7.99); HBc Num1 0.06 S/CO (0.00-0.79); Hepatitis B Core Antibody Nonreactive (Nonreactive); ~HepC Num1 0.12 S/CO (0.00-0.79); ~Hepatitis B Surface Antibody NONREACTIVE (Nonreactive); ~Hepatitis C Antibody Nonreactive (Nonreactive)
[2021-07-05 05:00] LABS: HBsAGNum1 0.13 S/CO (0.00-0.99); Hepatitis B Surface Antigen Negative (Negative)
== END 2021-07-04 12:46 | disposition home or self-care (01) ==
LOC: HO.LAB 12:45
PROVIDERS: Absent Provider Physician Assistant; PCP Physician Assistant; Visit Provider Internal Medicine
DX: M25.551 Pain in right hip (principal); M25.552 Pain in left hip; R79.89 Other specified abnormal findings of blood chemistry; E78.00 Pure hypercholesterolemia, unspecified; I10 Essential (primary) hypertension; E83.42 Hypomagnesemia; R18.8 Other ascites; F11.20 Opioid dependence, uncomplicated; K74.60 Unspecified cirrhosis of liver
CPT/HCPCS: 36415; 73502; 80048; 80061; 81003; 82140; 82306; 82977; 83735; 84443; 86704; 86706; 86803; 87340

== ENCOUNTER 2021-07-07 09:53 | Day surgery (SDC) | payer OTHER, SELFPAY ==
--- NOTE | ~2021-07-07 | US_ITS ---
EXAMINATION: ULTRASOUND-GUIDED PARACENTESIS. CLINICAL INFORMATION: Cirrhosis with ascites. COMPARISON: None TECHNIQUE: Following explaining ultrasound-guided paracentesis procedure, benefits and risk, a written consent was obtained. Patient was placed supine on ultrasound stretcher and preliminary ultrasound imaging was obtained. An optimal site was selected along the right lower quadrant and marked. The marked site was cleaned and draped in usual sterile manner. 1% lidocaine was administered at puncture site. Through a small skin incision a 5 [place] Yueh catheter was advanced into the peritoneal space. After observing fluid return, stylet was withdrawn and catheter connected to vacuum bottle via connecting cannula. After obtaining all fluid and observing normal fluid return, the catheter was withdrawn and complete hemostasis achieved at puncture site. Sterile dressing applied postprocedure. Patient tolerated procedure extremely well. FINDINGS: On preliminary ultrasound imaging of the abdomen there is moderate ascites noted. Approximately 6 L of red and cloudy fluid was drained from the right lower quadrant. None of this fluid was sent to lab. Previously yellowish fluid was aspirated. US/US paracentesis abd w/image IMPRESSION: Successful ultrasound-guided paracentesis performed with 6 L of reddish cloudy fluid drained. Previously patient had yellowish ascites fluid drained.
[2021-07-07 10:02] VITALS: BMI 28.0
[2021-07-07] MEDS: Lidocaine HCl 1 % MPF 5 ML VIAL SUBCUT (12:20)
[2021-07-07 12:23] VITALS: BP 113/71; PULSE 102; RESP 14; TEMP 36.2; O2SAT 100
[2021-07-07 12:53] VITALS: BP 114/63; PULSE 104; RESP 18; O2SAT 98
[2021-07-07 13:24] VITALS: BP 109/70; PULSE 108; RESP 18; O2SAT 98
== END 2021-07-07 13:50 | disposition home or self-care (01) ==
PROVIDERS: PCP Physician Assistant; Visit Provider Radiology Diagnostic Radiology
DX: K70.31 Alcoholic cirrhosis of liver with ascites (principal)
CPT/HCPCS: 49083; P9047

== ENCOUNTER 2021-07-18 12:30 | Outpatient (REF) | payer OTHER, SELFPAY ==
[2021-07-18 13:52] LABS: Anion Gap 8 (12-20); Blood Urea Nitrogen 14 mg/dL (9-16); Calcium 8.6 mg/dL (8.4-10.2); Carbon Dioxide 30 mmol/L (22-29); Chloride 105 mmol/L (96-108); Estimated Glomerular Filt Rate > 60; Glucose Random 100 mg/dL (60-115); Magnesium 1.6 mg/dL (1.6-2.6); Potassium 4.1 mmol/L (3.3-5.1); Sodium 139 mmol/L (135-145)
== END 2021-07-18 12:31 | disposition home or self-care (01) ==
LOC: HO.LAB 12:30
PROVIDERS: PCP Physician Assistant; Visit Provider Physician Assistant
DX: E83.42 Hypomagnesemia (principal); D64.9 Anemia, unspecified
CPT/HCPCS: 36415; 80048; 83735

== ENCOUNTER → 2021-08-16 12:16 | Day surgery (SDC) | payer OTHER, SELFPAY ==
--- NOTE | ~2021-08-16 | US_ITS ---
EXAMINATION: US ABDOMEN LIMITED CLINICAL INFORMATION: Patient scheduled for paracentesis.. COMPARISON: None TECHNIQUE: Real-time imaging of the right upper quadrant abdominal viscera. FINDINGS: Imaging prior to paracentesis revealed minimal fluid in the right upper quadrant. Exam was canceled due to insufficient amount. US/US abdomen limited IMPRESSION: Ultrasound-guided paracentesis was canceled as very little fluid was seen in the right upper quadrant. IR nurse elmaer texted to Dr. Arboleda with the results.
[2021-08-16 12:49] LABS: MANUAL DIFF FLAG NO
[2021-08-16 12:52] LABS: Basophils Percent Auto 0.6 % (0-2); Eosinophils Percent Auto 0.2 % (0-4); Hematocrit 32.1 % (42.0-52.0); Hemoglobin 10.7 g/dl (14.0-18.0); Imm Gran Abs Auto 0.02 X10*3/uL (0.00-0.03); Imm Gran Pct Auto 0.4 % (0.0-0.4); Lymphocytes Absolute Auto 1.3 X10*3/uL (1.2-4.9); Lymphocytes Percent Auto 24.8 % (20-40); Mean Corpuscular HGB Conc 33.3 g/dl (31.0-36.0); Mean Corpuscular Hemoglobin 34.3 pg (27.0-33.0); Mean Corpuscular Volume 102.9 fL (80.0-98.0); Mean Platelet Volume 9.5 fL (9.4-12.4); Monocytes Absolute Auto 0.5 X10*3/uL (0.1-1.2); Monocytes Percent Auto 8.7 % (2-11); Neutrophils Absolute Auto 3.5 x10*3/uL (2.0-8.3); Neutrophils Percent Auto 65.3 % (45-73); Platelet Count 179 X10*3/uL (160-400); Red Blood Count 3.12 X10*6/uL (4.60-5.80); Red Cell Distribution Width 12.7 % (11.0-16.0); White Blood Count 5.3 X10*3/uL (4.8-10.8)
[2021-08-16 13:00] VITALS: BMI 27.3
[2021-08-16 13:03] LABS: Anion Gap 13 (12-20); Blood Urea Nitrogen 10 mg/dL (9-16); Carbon Dioxide 29 mmol/L (22-29); Chloride 100 mmol/L (96-108); Creatinine Clr Calc Pharmacy 67.7; Estimated Glomerular Filt Rate > 60; Potassium 3.6 mmol/L (3.3-5.1); Sodium 138 mmol/L (135-145)
[2021-08-16 13:08] LABS: Prothrombin Time 11.3 SEC (9.9-13.0)
[2021-08-16 13:11] LABS: Partial Thromboplastin Time 30.4 SEC (24.1-38.0)
== END | disposition home or self-care (01) ==
PROVIDERS: Radiology Diagnostic Radiology; PCP Physician Assistant; Visit Provider Internal Medicine Gastroenterology
DX: K70.31 Alcoholic cirrhosis of liver with ascites (principal); Z53.8 Procedure and treatment not carried out for other reasons
CPT/HCPCS: 36415; 76705; 80051; 82565; 84520; 85025; 85610; 85730

== ENCOUNTER 2022-03-17 13:13 | Outpatient (REF) | payer OTHER, SELFPAY ==
[2022-03-17 13:34] LABS: Hematocrit 39.8 % (42.0-52.0); Hemoglobin 13.2 g/dl (14.0-18.0); Mean Corpuscular HGB Conc 33.2 g/dl (31.0-36.0); Mean Corpuscular Hemoglobin 33.1 pg (27.0-33.0); Mean Corpuscular Volume 99.7 fL (80.0-98.0); Mean Platelet Volume 9.2 fL (9.4-12.4); Platelet Count 204 X10*3/uL (160-400); Red Blood Count 3.99 X10*6/uL (4.60-5.80); Red Cell Distribution Width 12.5 % (11.0-16.0); White Blood Count 6.7 X10*3/uL (4.8-10.8)
[2022-03-17 14:36] LABS: Alanine Aminotransferase 23 U/L (0-40); Albumin Level 4.6 g/dL (3.5-5.0); Alkaline Phosphatase 137 U/L (39-117); Anion Gap 17 (12-20); Aspartate Amino Transferase 32 U/L (5-37); Bilirubin Total 1.3 mg/dL (0.0-1.0); Blood Urea Nitrogen 20 mg/dL (9-16); Calcium 9.9 mg/dL (8.4-10.2); Carbon Dioxide 25 mmol/L (22-29); Chloride 100 mmol/L (96-108); Cholesterol 259 mg/dL; Estimated Glomerular Filt Rate > 60; Glucose Fasting 104 mg/dL (60-99); HDL Cholesterol 92 mg/dL; LDL Cholesterol Calculated 149 mg/dl; Potassium 4.8 mmol/L (3.3-5.1); Prostate Specific Antigen Scr < 0.10 ng/mL (<0.05-4.0); Sodium 137 mmol/L (135-145); TSH reflex Free T4 1.31 uIU/mL (0.32-4.0); Total Protein 8.1 g/dL (6.5-8.0); Triglycerides 90 mg/dL
[2022-03-23 10:49] LABS: Testosterone, Total 297 ng/dL (250-1100)
== END 2022-03-17 13:14 | disposition home or self-care (01) ==
LOC: HO.LAB 13:13
PROVIDERS: Absent Provider Physician Assistant; PCP Physician Assistant; Visit Provider Internal Medicine Gastroenterology
DX: Z12.5 Encounter for screening for malignant neoplasm of prostate (principal); E83.42 Hypomagnesemia; I10 Essential (primary) hypertension
CPT/HCPCS: 36415; 80053; 80061; 83735; 84153; 84402; 84403; 84443; 85027

== ENCOUNTER 2023-03-27 13:16 | Outpatient (REF) | payer OTHER, SELFPAY ==
[2023-03-27 13:54] LABS: Hemoglobin 14.6 g/dl (14.0-18.0); Mean Corpuscular HGB Conc 33.2 g/dl (31.0-36.0); Mean Corpuscular Hemoglobin 31.7 pg (27.0-33.0); Mean Corpuscular Volume 95.7 fL (80.0-98.0); Mean Platelet Volume 9.6 fL (9.4-12.4); Platelet Count 234 X10*3/uL (160-400); Red Cell Distribution Width 13.2 % (11.0-16.0); White Blood Count 8.4 X10*3/uL (4.8-10.8)
[2023-03-27 14:26] LABS: Alanine Aminotransferase 16 U/L (0-40); Albumin Level 3.9 g/dL (3.5-5.0); Alkaline Phosphatase 86 U/L (39-117); Anion Gap 15 (12-20); Aspartate Amino Transferase 18 U/L (5-37); Bilirubin Total 0.4 mg/dL (0.0-1.0); Blood Urea Nitrogen 13 mg/dL (9-16); Calcium 8.9 mg/dL (8.4-10.2); Carbon Dioxide 23 mmol/L (22-29); Chloride 107 mmol/L (96-108); Cholesterol 196 mg/dL (<200); Estimated Glomerular Filt Rate > 60; Glucose Fasting 118 mg/dL (60-99); HDL Cholesterol 44 mg/dL (>40); LDL Cholesterol Calculated 131 mg/dL (<100); Potassium 4.1 mmol/L (3.3-5.1); Sodium 141 mmol/L (135-145); Total Protein 7.4 g/dL (6.5-8.0); Triglycerides 109 mg/dL (<150)
[2023-03-27 14:46] LABS: Prostate Specific Antigen Scr 1.26 ng/mL (<0.05-4.0)
[2023-03-27 15:59] LABS: Creatinine Urine 365.73 mg/dL; Microalbum/Creatinine Ratio Ur 129.6 ug/mg cr (<30)
[2023-04-05 13:44] LABS: Testosterone, Total 3744 ng/dL (250-1100)
== END 2023-03-27 13:17 | disposition home or self-care (01) ==
LOC: HO.LAB 13:16
PROVIDERS: PCP Physician Assistant; Visit Provider Physician Assistant
DX: I10 Essential (primary) hypertension (principal); E78.5 Hyperlipidemia, unspecified; E29.1 Testicular hypofunction; Z12.5 Encounter for screening for malignant neoplasm of prostate
CPT/HCPCS: 36415; 80053; 80061; 82043; 82570; 84153; 84402; 84403; 85027

== ENCOUNTER 2023-05-01 11:15 | Outpatient (AMB) | payer OTHER, SELFPAY ==
[2023-05-01 11:18] VITALS: BP 122/62; PULSE 88; O2SAT 98; BMI 34.2
--- NOTE | 2023-05-01 11:18 | A.OFFPC_ITS ---
Vital Signs 05/01/23 11:18 Height 5 ft 8 in Weight 225 lb BMI 34.2 BP 122/62 Blood Pressure Location Lt brachial Position Sitting Pulse 88 Pulse Source Pulse Oximeter Pulse Oximetry (%) 98 Oxygen Delivery Method Room Air Intake Visit Reasons: Med review Hospital Receiving Clerk Required: No Accompanied by: Self / Same As Patient Allergies lisinopril Allergy (Unknown, Verified 05/01/23 11:41) ? kidney issue possible r/t to this med Medication List - Last Reconciled 05/01/23 by Enio Gabriel PA-C albuterol sulfate 90 mcg/actuation (Ventolin HFA) 2 puffs inhalation Q6H PRN buprenorphine 20 mcg/hour (Butrans) 1 patch transdermal Q7D 28 days clonazepam 1 mg PO DAILY 30 days furosemide 40 mg PO DAILY 30 days magnesium oxide 800 mg (2 x 400 mg (241.3 mg magnesium)) PO DAILY 30 days multivitamin with folic acid 400 mcg (Daily-Linda (with folic acid)) 1 tab PO DAILY omeprazole 20 mg PO BIDWMEAL spironolactone 100 mg (2 x 50 mg) PO DAILY vitamin A 1 cap PO DAILY Tobacco use date assessed: 05/01/23 Dental Screening Dental Screen Date: 05/01/23 Did you have a dental visit in the last 12 months?: Yes Did you have a dental problem in the last 6 months where you did not have access to dental care?: No Was dental information given to patient?: Patient has dentist HPI Med review HPI Details Patient is a 57-year-old male here today for follow-up visit. Patient has a past medical history significant for chronic lumbar spine pain, history of alcohol use disorder with cirrhosis and ascites generalized anxiety disorder, tobacco use disorder, COPD, congestive heart failure with reduced ejection fraction. Concerns--> most recent testosterone level above 3700. He has been using exogenous IM injections of testosterone on his own and since hearing the lab results he has reduced his dosage by half. Otherwise CBC was normal. .. CHF: Has been fairly stable on current spironolactone and furosemide dosing. Has been taken off of Entresto. Most recent echocardiogram showing ejection fraction of 50-55%. He denies any shortness of breath or worsening lower extremity edema. .. Tobacco dependency: Unfortunately continues to smoke cigarettes and has not been able to quit. He declines offers to start nicotine replacement. .. Anxiety: Still does suffer from anxiety and does use clonazepam on an as-needed basis. He is asking for an increase dose to 2 mg tablets for his anxiety. Again not interested in speaking with a mental health therapist at this time .. Hypogonadism: Most recent testosterone done in 2019 showing very low reading. Of note patient has been on chronic narcotics. Offered referral to Endocrinology though he declines. As above has been using exogenous IM testosterone on his own and most recent lab showing testosterone level above 3700. Warned him about the cardiovascular effects of having elevated testosterone. .. Alcohol use disorder: He reports he has drastically reduced his alcohol intake. Has had history alcohol dependency. Unfortunately continues to drink though reports he has reduced his drinking. No further ascites and need for paracentesis. Most recent liver enzymes were normalized. .. Tobacco dependency: Continues to smoke and does understand he needs to quit smoking. .. Lumbar disc disease: Has a long history of lumbar disc disease of the chronic pain for him. Was seen by pain management in the past and does report getting injections which were not effective. Was on narcotic pain medication as well in the past. He is asking for short term script for a medication for his pain as needed thus we agreed upon tramadol to use on as needed basis. He is reconsidering being seen at pain management clinic for pain reduction modalities again. Laboratory Tests 03/17/22 03/17/22 03/17/22 13:22 13:22 13:22 RBC 3.99 L D Hgb 13.2 L D Creatinine Fasting Glucose 104 H Cholesterol LDL Cholesterol, C alc Total Testosterone Fr Testosterone Di migdalia Urine Microalbumin 03/17/22 03/17/22 03/17/22 13:22 13:22 13:22 RBC Hgb Creatinine Fasting Glucose Cholesterol 259 LDL Cholesterol, C alc 149 Total Testosterone 297 Fr Testosterone Di migdalia Urine Microalbumin 03/17/22 03/27/23 03/27/23 13:22 13:35 13:37 RBC 4.60 Hgb Creatinine Fasting Glucose Cholesterol LDL Cholesterol, C alc Total Testosterone Fr Testosterone Di migdalia 30.0 L Urine Microalbumin 474.0 03/27/23 03/27/23 03/27/23 13:37 13:37 13:37 RBC Hgb 14.6 Creatinine 1.22 Fasting Glucose 118 H Cholesterol 196 LDL Cholesterol, C alc Total Testosterone Fr Testosterone Di migdalia Urine Microalbumin 03/27/23 03/27/23 03/27/23 13:37 13:37 13:37 RBC Hgb Creatinine Fasting Glucose Cholesterol LDL Cholesterol, C alc 131 H Total Testosterone 3744 H Fr Testosterone Di migdalia 1258.0 H Urine Microalbumin [facility] Medical History (Updated 05/01/23 @ 13:00 by Enio Gabriel PA-C) Obesity (BMI 30-39.9) Ascites Cirrhosis Elevated LFTs Sinus tachycardia Cardiomyopathy Obesity History of avascular necrosis of capital femoral epiphysis Lumbar spondylosis Spondylosis Anemia Hypogonadism Avascular necrosis of bone Surgical History History of hand surgery Hx of bilateral hip replacements Family History Father Heart problem CVD (cardiovascular disease) Myocardial infarction Mother No problems noted. Daughter In good health Son In good health Sister In good health Social History Household Members Other:: Lives with mom Housing: House Alcohol intake: current Alcohol intake frequency: 3 or more drinks per day Patient Tobacco Use Status: Current everyday Tobacco user Tobacco use type: Cigarette Cigarette Packs Per Day: 0.5 Cigarettes Per Day: 10 e-Cigarette/Vaping Use: Never Used Substance Use Type: Marijuana service: No Current occupational status: disabled Cognitive needs: No Hearing needs: No Vision needs: Yes (Pt has not seen an eye doctor for a long time. ) Questionnaire PHQ-9 Over the last 2 weeks, how often have you been bothered by any of the following problems? 1. Little interest or pleasure in doing things: several days 2. Feeling down, depressed, or hopeless: several days 3. Trouble falling or staying asleep, or sleeping too much: more than half the days 4. Feeling tired or having little energy: several days 5. Poor appetite or overeating: several days 6. Feeling bad about yourself - or that you are a failure or have let yourself or your family down: several days 7. Trouble concentrating on things, such as reading the newspaper or watching television: several days 8. Moving or speaking so slowly that other people could have noticed. Or the opposite - being so fidgety or restless that you have been moving around a lot more than usual: several days 9. Thoughts that you would be better off or of hurting yourself in some way: not at all Total score: 9 Depression Screening Interpretation: Positive Depression Screening Follow-up: Existing condition and Declines treatment Depression Screening Done: Yes 08451 - PHQ-9 Billing: Yes Source: Developed by Drs. Austin Ruiz, Ml Fontanez, Marlo Beyer and colleagues, with an educational sean from [employer]. Thrive Questionnaire Date Thrive assessed: 05/01/23 I am a: Patient What is your living situation today?: I have a steady place to live Within the past 12 months, did the food you bought not last and you didn't have the money to get more?: Never true Within the past 12 months, did you worry whether your food would run out before you got money to buy more?: Never true Do you have trouble paying for medicines?: No Do you have trouble getting transportation to medical appointments?: No Do you have trouble paying your heating and electricity bill?: No Do you have trouble taking care of your child, family member or friend?: No Do you have trouble with day-to-day activities such as bathing, preparing meals, shopping, managing finances, etc.?: No Are you currently unemployed and looking for a job?: No Are you interested in more education?: No Please select the resources that you would like help with: None Currently or been in a relationship where the following occur: no concerns reported THRIVE Score: 0 AUDIT C Alcohol Use Questionnaire (AUDIT-C) 1. How often do you have a drink containing alcohol?: 2-3 times a week 2. How many drinks containing alcohol do you have on a typical day when you are drinking?: 1 or 2 3. How often do you have six or more drinks on one occasion?: Never Total Score: 3 OLMAN-7 AMB Questionnaire OLMAN-7 Date OLMAN - 7 assessed: 05/01/23 Feeling nervous, anxious, or on edge: 0 = Not at all Not being able to stop or control worryin = Several days Worrying too much about different things: 1 = Several days Trouble relaxin = Several days Being so restless that it is hard to sit still: 1 = Several days Becoming easily annoyed or irritable: 1 = Several days Feeling afraid as if something awful might happen: 1 = Several days Total OLMAN-7 score (0-4 normal; 5-9 mild; 10-14 moderate; 15-21 severe): 6 Source: Developed by Drs. Austin Ruiz, Ml Fontanez, Marlo Beyer and colleagues, with an educational sean from [employer]. OLMAN-7 Assessment Billing OLMAN-7 Assessment Tool: OLMAN-7 Assessment 55182 Review of Systems Const Denies headache(s) Eyes Denies loss of vision ENT Denies vertigo, Denies dizziness, Denies headache(s) and Denies sore throat Card Denies chest pain, Denies leg edema and Denies lightheadedness Resp Denies cough, Denies hemoptysis and Denies wheezing GI Denies abdominal pain, Denies melena, Denies constipation, Denies diarrhea and Denies vomiting Denies dysuria, Denies urinary frequency and Denies urinary urgency Musc Denies arthralgias, Denies joint swelling, Denies numbness and Denies tingling Neuro Denies Abnormal speech present, Denies behavioral changes, Denies vertigo, Denies dizziness, Denies headache(s), Denies loss of vision, Denies memory loss, Denies numbness and Denies tingling Psych Denies anxiety, Denies behavioral changes, Denies depression, Denies memory loss and Denies panic attacks Shant/Lymph Denies easy bleeding and Denies easy bruising Aller/Immun Denies wheezing Physical exam (Primary Care) Vital Signs: Last Vital Signs Pulse 88 05/01/23 11:18 BP 122/62 05/01/23 11:18 Pulse Ox 98 05/01/23 11:18 Oxygen Delivery Method Room Air 05/01/23 11:18 BMI result Body Mass Index 34.2 BMI Assessment/Plan discussion: High Tobacco/Smoking Status: Tobacco use Status Tobacco use date assessed 05/01/23 05/01/23 11:19 Patient Tobacco Use Status Current everyday Tobacco 05/01/23 11:19 Tobacco use type Cigarette 05/01/23 11:19 e-Cigarette/Vaping Use Never Used 05/01/23 11:19 Are you ready to quit: No Tobacco cessation counseling provided: Yes Items discussed: Nicotine replacement Relapse Prevention: discussed the importance of a supportive environment, discussed negative mood or depression after quitting, weight gain after smoking is common and discussed dietary, exercise and/or lifestyle changes Number of minutes spent counselin CPT code: 15696 - 4-10 Minutes PHQ-9: PHQ-9 Score PHQ-9: Total score 9 05/01/23 11:43 Depression Screening Interpretation: Positive Depression Screening Follow-up: Existing condition and Declines treatment Thrive Assessment: Date of Thrive Assessment Date Thrive assessed 05/01/23 05/01/23 11:19 Currently or been in a relationship where the following occur: no concerns reported Const Other: Obese General: healthy appearing, no acute distress, alert and awake Nutritional Appearance: well nourished Orientation/consciousness: oriented to person, oriented to place and oriented to time HENMT Ears: TM's normal bilaterally General nose exam: Normal nasal mucous membranes and turbinates present Eyes Conjunctivae: conjunctivae normal Sclerae: sclerae normal Pupils: Equal, round and reactive pupils present Neck Neck: Yes no lymphadenopathy and Yes no JVD Thyroid: Thyroid normal Carotids: no bruits Resp Effort & Inspection: normal respiratory effort and not tachypneic Auscultation: no crackles, no rales, no rhonchi and no wheezes Cardio Rate: regular rate Rhythm: regular rhythm Heart sounds: no murmurs and normal S1 and S2 GI Palpation (GI): Soft to palpation, nontender, no hepatomegaly and no splenomegaly Auscultation: normal bowel sounds Skin General skin exam: no rashes or lesions noted and dry skin Neuro General: oriented to person, oriented to place and oriented to time Cranial nerves: Yes Equal, round and reactive pupils present Speech: No Abnormal speech present Gait exam (Neuro): Normal gait present Motor exam (neuro): no tremor noted Extrem Right upper extremity: full ROM Left upper extremity: full ROM Right lower extremity: full ROM; no edema Left lower extremity: full ROM; no edema Psych Mental Status: mental status grossly normal Speech and movement: Normal speech and movement present Affect: normal affect Attitude: cooperative Thought process: Normal thought process present Assessment and Plan Assessment & Plan (1) HTN (hypertension): Code(s): I10 - Essential (primary) hypertension Qualifiers: Hypertension type: primary hypertension Qualified Code(s): I10 - Essential (primary) hypertension Plan: Patient's blood pressure acceptable today in office. Will continue his current antihypertensive medication with goal pressure be below 140/90 (2) CHF (congestive heart failure), NYHA class III: Code(s): I50.9 - Heart failure, unspecified Qualifiers: Congestive heart failure chronicity: chronic Congestive heart failure type: systolic Qualified Code(s): I50.22 - Chronic systolic (congestive) heart failure Plan: Patient continues on spironolactone and furosemide, seems euvolemic on physical exam today. Has lost follow-up with Cardiology and echocardiogram showing EF of 50 55%. Was taken off of entresto. Will reorder an echocardiogram as surveillance on his cardiac function. (3) Hypogonadism in male: Code(s): E29.1 - Testicular hypofunction Plan: Patient with very low testosterone, last checked in 2019 at 15. Has been taking exogenous IM injections of testosterone lately and testosterone level very elevated above 3700. He has thus reduce his dose and would like to keep track of his testosterone. Again offered him referral to Endocrinology for hypogonadism though he declines at this time (4) COPD (chronic obstructive pulmonary disease): Code(s): J44.9 - Chronic obstructive pulmonary disease, unspecified Qualifiers: COPD type: chronic bronchitis Chronic bronchitis type: simple Qualified Code(s): J41.0 - Simple chronic bronchitis Plan: Unfortunately continues to smoke and does understand he needs to quit smoking. Recently has had an upper respiratory infection that he has been suffering with a lingering cough. Otherwise does not use any maintenance inhalers at this time. (5) Tobacco dependence: Code(s): F17.200 - Nicotine dependence, unspecified, uncomplicated Plan: As above patient does understand he needs to quit smoking. Offered nicotine replacement and or medication though he declines (6) Elevated testosterone level: Code(s): R79.89 - Other specified abnormal findings of blood chemistry Plan: As above STRONGLY ADVISED TO REDUCE HIS IM TESTOSTERONE USE (7) Opiate dependence: Code(s): F11.20 - Opioid dependence, uncomplicated Qualifiers: Substance use status: uncomplicated Qualified Code(s): F11.20 - Opioid dependence, uncomplicated Plan: Has a history of opiate dependency -go now seems to be in remission. (8) OLMAN (generalized anxiety disorder): Code(s): F41.1 - Generalized anxiety disorder Plan: Patient does report still suffering with anxiety would like an increase dose of his clonazepam to use on a p.r.n. basis. (9) Lumbar disc disease with radiculopathy: Code(s): M51.16 - Intervertebral disc disorders with radiculopathy, lumbar region Plan: Has a chronic history of low back pain. Has been trying to be more physically active and hiking more though reports lower right-sided back pain. He is considering returning back to pain management for pain reduction modalities. He is asking for a pain medication to use as needed and we agreed upon using tramadol on a p.r.n. basis. (10) Cirrhosis: Code(s): K74.60 - Unspecified cirrhosis of liver Qualifiers: Hepatic cirrhosis type: alcoholic cirrhosis Ascites presence: with ascites Qualified Code(s): K70.31 - Alcoholic cirrhosis of liver with ascites Plan: He reports he significantly reduced his alcohol intake. Still has a few beers now and then. Most recent liver enzymes much improved (11) Obesity: Code(s): E66.9 - Obesity, unspecified Qualifiers: Obesity type: due to excess calories Obesity classification: adult class 1 (BMI 30 - 34.9) Serious obesity comorbidity presence: with serious comorbidity Body mass index: BMI 34.0-34.9 Qualified Code(s): E66.09 - Other obesity due to excess calories; Z68.34 - Body mass index [BMI] 34.0-34.9, adult Plan: Patient does understand his BMI is well over 30 will work on being more physically active and adapt to better eating habits to reduce his weight Orders: Orders Testosterone, Free/Total Today R79.89 - Other specified abnormal findings of blood chemistry Testosterone, Free/Total Today R79.89 - Other specified abnormal findings of blood chemistry CA echo transthoracic complete Today I50.9 - Heart failure, unspecified Testosterone, Free/Total Today R79.89 - Other specified abnormal findings of blood chemistry Testosterone, Free/Total Today R79.89 - Other specified abnormal findings of blood chemistry Medications: New tramadol 50 mg PO DAILY 30 days 14 tabs 0RF M51.16 - Intervertebral disc disorders with radiculopathy, lumbar region clonazepam 2 mg PO DAILY 28 days 28 tabs 0RF F41.1 - Generalized anxiety disorder Refilled 2 omeprazole 20 mg PO BIDWMEAL 60 caps 3RF Discontinued buprenorphine 20 mcg/hour (Butrans) PAIN CONTROL- Discontinued Reason: Doctor's Order 1 patch transdermal Q7D 28 days 4 ea 1RF M47.816 - Spondylosis without myelopathy or radiculopathy, lumbar region clonazepam Discontinued Reason: Doctor's Order 1 mg PO DAILY 30 days 30 tabs 1RF F41.1 - Generalized anxiety disorder Coding Level of Care Code Est Pt Level 4 (87209) Diagnoses Primary hypertension I10 Hypertension type: primary hypertension Chronic systolic congestive heart failure, NYHA class 3 I50.22 Congestive heart failure chronicity: chronic Congestive heart failure type: systolic Hypogonadism in male E29.1 Simple chronic bronchitis J41.0 COPD type: chronic bronchitis Chronic bronchitis type: simple Tobacco dependence F17.200 Elevated testosterone level R79.89 Uncomplicated opioid dependence F11.20 Substance use status: uncomplicated OLMAN (generalized anxiety disorder) F41.1 Lumbar disc disease with radiculopathy M51.16 Alcoholic cirrhosis of liver with ascites K70.31 Hepatic cirrhosis type: alcoholic cirrhosis Ascites presence: with ascites Class 1 obesity due to excess calories with serious comorbidity and body mass index (BMI) of 34.0 to 34.9 in adult E66.09; Z68.34 Obesity type: due to excess calories Obesity classification: adult class 1 (BMI 30 - 34.9) Serious obesity comorbidity presence: with serious comorbidity Body mass index: BMI 34.0-34.9 Additional Codes OLMAN-7 Assessment Billing - OLMAN-7 Assessment Tool: OLMAN-7 Assessment 50253 ([id number]) Vital Signs *Quality* - CPT code: 27471 - 4-10 Minutes ([id number])
== END 2023-05-01 12:04 | disposition home or self-care (01) ==
PROVIDERS: PCP Physician Assistant; Visit Provider Physician Assistant
DX: I11.0 Hypertensive heart disease with heart failure (principal); I50.22 Chronic systolic (congestive) heart failure; E29.1 Testicular hypofunction; J41.0 Simple chronic bronchitis; F17.200 Nicotine dependence, unspecified, uncomplicated; R79.89 Other specified abnormal findings of blood chemistry; F41.1 Generalized anxiety disorder; M51.16 Intervertebral disc disorders with radiculopathy, lumbar region; E66.09 Other obesity due to excess calories; Z68.34 Body mass index [BMI] 34.0-34.9, adult
CPT/HCPCS: 99214

== ENCOUNTER → 2023-05-28 13:56 | Outpatient (REF) | payer OTHER, SELFPAY ==
--- NOTE | 2023-05-28 13:58 | CA_ITS ---
Transthoracic Echocardiogram Patient (Last, First, Middle): Cornelius Garcia, Gender: Male Date of : 1965 Age: 57 Procedure Date: 05/28/2023 Procedure Type: Transthoracic Echocardiogram Location: OP Height: 177.8 cm Weight: 99.79 kg BSA: 2.17 m2 Heart Rate: bpm BP: 134 / 88 mmHg Teletype Installer: [email or web address] Referring MD: Enio Gabriel PA-C Symptoms: I50.9 - Heart failure, unspecified Study Quality: Fair, contrast Conclusions: - The left ventricular systolic function is severely decreased. The calculated ejection fraction is 27% by biplane method. - No obvious valvular pathology seen on this study. Findings Procedure Information Contrast agent, definity, is being given per protocol without apparent complications. Left Ventricle Severely increased left ventricular cavity size. The left ventricular systolic function is severely decreased. The calculated ejection fraction is 27% by biplane method. There is severe global hypokinesis. Diastolic function is normal for age. There is mild septal asymmetric hypertrophy. Right Ventricle Mildly increased right ventricular cavity size. There is normal right ventricular systolic function. Atria Top normal left atrial size. The right atrium is normal in size. Aortic Valve The aortic valve was not well visualized. There is no aortic valve stenosis. There is trace (trivial) aortic valve regurgitation. Mitral Valve The mitral valve appears normal. There is trace mitral valve regurgitation. There is no mitral valve stenosis. Pulmonic Valve The pulmonic valve is likely normal. Tricuspid Valve There is no tricuspid valve regurgitation. Tricuspid regurgitation envelope is inadequate for calculation of right ventricular systolic pressure. Great Vessels The asc aorta is normal in size. Venous The inferior vena cava is normal in size and collapses greater than 50% with inspiration. Pericardium/Pleural There is no evidence of pericardial effusion. Prior Study Comparison Changes noted compared to prior study dated: 05/05/2021. LVEF is worse. Recommendations, Care & Conclusions No obvious valvular pathology seen on this study. Measurements 2D Linear Measurements IVSd: 1.06 0.6-0.9/0.6-1.0 cm LVIDd: 6.87 3.9-5.3/4.2-5.9 cm LVIDd Index: 3.17 2.4-3.2/2.2-3.1 cm/m2 LVIDs: 5.72 2.0-3.6 cm LVPWd: 0.98 0.7-1.1 cm LA Diam: 3.80 2.7-3.8/3.0-4.0 cm LAIDs Index: 1.75 1.5-2.3 cm/m2 LV Mass: 398.43 67-162/88-224 g LV Mass Index: 183.61 43-95/49-115 g/m2 LVOT Diam: 2.50 3.0+(-)1.3 cm 2D Systolic Function EF 4C: 35.30 >55% EF 2C: 23.80 >55% EF BiP: 26.90 >55% Mitral Valve MV Pk E: 0.83 MV PK A: 0.80 MV Decel Time: 141.00 E/A: 1.00 E'Lateral: 5.87 E'Medial: 7.40 E/E' Med: 11.20 E/E' Lat: 14.20 PHT: 41.00 MVA PHT: 5.37 Decel [place]: 5.91 Aortic Valve AoV Pk [place]: 1.27 AoV Mn [place]: 0.95 AoV VTI: 0.26 AoV Pk Grad: 6.00 Aov Mn Grad: 4.00 WINDY Cont.VTI: 3.11 LVOT LVOT Pk [place]: 0.82 LVOT Mn [place]: 0.55 LVOT VTI: 0.16 LVOT Pk Grad: 3.00 LVOT Mn Grad: 1.00 LVOT Diam: 2.50 LVOT Area: 4.91 Diastolic Function MV Pk E: 0.83 MV Pk A: 0.80 E/A: 1.00 E'Medial: 7.40 E/E' Med: 11.20 E' Laterial: 5.87 E/E' Lat: 14.20 Right Ventricle TAPSE (mm): 20.90 TVS' Sab[place]: 12.10 Tricuspid Valve RA Press: 3.00 Great Vessels Aorta Sinus of Valsalva: 3.29 2.0-3.5 cm Ao Asc: 3.20 2.1-3.4 cm Updated in Other Vendor System with Status of Final Tenzin Garcia MD electronically signed on 05/28/2023 12:53:40 PM with status of Final
== END ==
LOC: HO.CARD 13:56
PROVIDERS: PCP Physician Assistant; Visit Provider Physician Assistant
DX: I50.9 Heart failure, unspecified (principal)
CPT/HCPCS: 93306; Q9957

== ENCOUNTER → 2023-05-28 13:58 | Outpatient (BNV) | payer OTHER, SELFPAY | PROVIDERS: PCP Physician Assistant; Visit Provider Internal Medicine | DX: I50.9 Heart failure, unspecified (principal) | CPT/HCPCS: 93306 ==

== ENCOUNTER 2023-05-31 14:49 | Outpatient (AMB) | payer OTHER, SELFPAY ==
--- NOTE | 2023-05-31 14:51 | A.OFFVIS_ITS ---
Intake Vital Signs 05/31/23 14:53 Height 5 ft 8 in Weight 220 lb 7.396 oz BMI 33.5 BP 140/96 H Blood Pressure Location Lt brachial Position Sitting Pulse 108 H Intake Visit Reasons: ref PCp/ ef 27% Intake Note: follow up [employer] Operator Required: No Accompanied by: Self / Same As Patient Allergies lisinopril Allergy (Unknown, Verified 05/31/23 14:54) ? kidney issue possible r/t to this med Medication List - Last Reconciled 05/31/23 by Tenzin Garcia MD albuterol sulfate 90 mcg/actuation (Ventolin HFA) 2 puffs inhalation Q6H PRN clonazepam 2 mg PO DAILY 28 days furosemide 40 mg PO DAILY 30 days magnesium oxide 800 mg (2 x 400 mg (241.3 mg magnesium)) PO DAILY 30 days multivitamin with folic acid 400 mcg (Daily-Linda (with folic acid)) 1 tab PO DAILY omeprazole 20 mg PO BIDWMEAL spironolactone 100 mg (2 x 50 mg) PO DAILY tramadol 50 mg PO DAILY 30 days vitamin A 1 cap PO DAILY HPI HPI Comments History of Present Illness Details Edward returns for follow-up regarding cardiomyopathy. Unfortunately, he is very noncompliant and does not come for visits and hence last seen in 2020. In the past, he had ascites as well as anasarca type presentation but more recently he states he is generally doing well. Unfortunately, he still drinking regularly. Also smokes. He was on Entresto in the past but not taking anymore. He was also on Coreg in the past but due to some low blood pressure issues that was also started some point. Again because of lack of follow-up meds are not managed as guideline directed. He states he is actually doing quite well without any clear-cut cardiac symptoms. [facility] Medical History (Updated 05/31/23 @ 15:20 by Tenzin Garcia MD) Obesity (BMI 30-39.9) Ascites Cirrhosis Elevated LFTs Sinus tachycardia Cardiomyopathy Obesity History of avascular necrosis of capital femoral epiphysis Lumbar spondylosis Spondylosis Anemia Hypogonadism Avascular necrosis of bone Surgical History History of hand surgery Hx of bilateral hip replacements Family History Father Heart problem CVD (cardiovascular disease) Myocardial infarction Mother No problems noted. Daughter In good health Son In good health Sister In good health Social History Household Members Other:: Lives with mom Housing: House Alcohol intake: current Alcohol intake frequency: 3 or more drinks per day Patient Tobacco Use Status: Current everyday Tobacco user Tobacco use type: Cigarette Cigarette Packs Per Day: 0.5 Cigarettes Per Day: 10 e-Cigarette/Vaping Use: Never Used Substance Use Type: Marijuana service: No Current occupational status: disabled Cognitive needs: No Hearing needs: No Vision needs: Yes (Pt has not seen an eye doctor for a long time. ) Review of Systems Const Denies weakness ENT Denies dizziness Card Denies chest pain, Denies chest pain with activity, Denies syncope, Denies rapid heart rate, Denies pedal edema, Denies edema, Denies leg edema, Denies lightheadedness, Denies palpitations, Denies dyspnea, Denies dyspnea on exertion and Denies orthopnea Resp Denies cough, Denies dyspnea and Denies dyspnea on exertion GI Denies hematochezia and Denies change in stool character Musc Denies abnormal gait, Denies muscle cramps, Denies muscle weakness, Denies numbness, Denies radiating pain into limb and Denies tingling Neuro Denies abnormal gait, Denies dizziness, Denies syncope, Denies numbness, Denies tingling and Denies weakness Endo Denies palpitations Physical Exam Vital Signs: Last Vital Signs Pulse 108 H 05/31/23 14:53 BP 140/96 H 05/31/23 14:53 BMI result Body Mass Index 33.5 Const General: comfortable and no acute distress Orientation/consciousness: patient oriented x3 HEENT Other: Unremarkable Head: Yes normal to inspection Neck Neck: Yes normal visual inspection Chest Chest palpation & inspection: normal inspection of the chest Resp Auscultation: clear to auscultation bilaterally Cardio Palpation: normal PMI Heart sounds: S1 normal heart sound present, S2 normal heart sound present, no gallops, no murmurs and no rubs GI Palpation (GI): Soft to palpation Back/Spine/Pelvis Other: unremarkable Skin General skin exam: no rashes or lesions noted Neuro General: patient oriented x3 Extrem General: Yes normal to inspection Psych Mental Status: mental status grossly normal Office Procedures EKG Details: EKG with sinus tachycardia 108/Min; no significant ST-T changes and otherwise unremarkable[place]. [id number], Complete Assessment & Plan Assessment & Plan (1) Cardiomyopathy: Code(s): I42.9 - Cardiomyopathy, unspecified Qualifiers: Cardiomyopathy type: unspecified Qualified Code(s): I42.9 - Cardiomyopathy, unspecified Plan: In the most recent echocardiogram, LVEF 27%. LV cavity size dilated. In the past, LVEF has been quite variable. In 2017, 25-30%. During the stress test from 2020, it actually showed normal gated LVEF. However, that time he was also on guideline based medicines. Myocardial perfusion imaging study from 2020 showed normal perfusion. At this time, he seems euvolemic. Hence no need for additional diuretics. Continue what he is taking. We can resume the Entresto. Script sent. Compliance increased. Check BMP in a few days after starting this. Then we can up titrate accordingly. If he tolerates well, then we can also start Coreg. He is already on spironolactone. (2) Sinus tachycardia: Code(s): R00.0 - Tachycardia, unspecified Plan: This is chronic. Could be related to alcohol excess, deconditioning, obesity, cardiomyopathy. (3) Non-compliance: Code(s): Z91.199 - Patient's noncompliance with other medical treatment and regimen due to unspecified reason Plan: Unfortunately, this lot of noncompliance. We discussed about importance of coming to appointments. He states he will try this time. (4) Alcohol abuse: Code(s): F10.10 - Alcohol abuse, uncomplicated Plan: Still drinks regularly. Needs to cut back. We discussed about this today. Orders: Orders Comprehensive [place]. Panel Fast 03/27/23 I10 - Essential (primary) hypertension Medications: New sacubitril-valsartan 24-26 mg (Entresto) 1 tab PO BID 60 tabs 5RF 30 days Coding Level of Care Code Est Pt Level 4 (59067) Diagnoses Cardiomyopathy, unspecified type I42.9 Cardiomyopathy type: unspecified Sinus tachycardia R00.0 Non-compliance Z91.199 Alcohol abuse F10.10 CPT Codes EKG - CPT: 96458-[id number], Complete ([id number])
[2023-05-31 14:53] VITALS: BP 140/96; PULSE 108; BMI 33.5
== END 2023-05-31 15:14 | disposition home or self-care (01) ==
PROVIDERS: PCP Physician Assistant; Visit Provider Internal Medicine
DX: I42.9 Cardiomyopathy, unspecified (principal); R00.0 Tachycardia, unspecified; Z91.199 Patient's noncompliance with other medical treatment and regimen due to unspecified reason; F10.10 Alcohol abuse, uncomplicated
CPT/HCPCS: 93010; 99214

== ENCOUNTER → 2023-05-31 14:49 | Outpatient (BNVA) | payer OTHER, SELFPAY | PROVIDERS: PCP Physician Assistant; Visit Provider Internal Medicine | DX: I42.9 Cardiomyopathy, unspecified (principal); R00.0 Tachycardia, unspecified; F10.10 Alcohol abuse, uncomplicated; Z91.199 Patient's noncompliance with other medical treatment and regimen due to unspecified reason | CPT/HCPCS: 93005; 99212 ==

== ENCOUNTER 2023-06-08 04:19 | Emergency (ER) | payer OTHER, SELFPAY ==
--- NOTE | 2023-06-08 | ECG_ITS ---
Test Reason : UNRESPONSIVE Blood Pressure : / mmHG Vent. Rate : 092 BPM Atrial Rate : 092 BPM P-R Int : 160 ms QRS Dur : 108 ms QT Int : 384 ms P-R-T Axes : 072 033 071 degrees QTc Int : 474 ms Normal sinus rhythm Inferior infarct (cited on or before 02-DEC-2020) Abnormal ECG When compared with ECG of 23-MAY-2021 16:04, QRS duration has increased Non-specific change in ST segment in Anterior leads Nonspecific T wave abnormality no longer evident in Inferior leads Nonspecific T wave abnormality no longer evident in Anterior leads QT has lengthened Referred By: Generic ED Physician Electronically Signed By:ODILIA JAMES MD
[2023-06-08 04:26] VITALS: BP 113/74; PULSE 98; O2SAT 96
[2023-06-08 04:33] VITALS: BP 99/67; PULSE 94; RESP 20; TEMP 36.6; O2SAT 94; BMI 32.7
[2023-06-08 04:44] VITALS: BP 103/62; PULSE 92; RESP 20; O2SAT 96
--- NOTE | 2023-06-08 05:08 | ED_ITS ---
HPI - Psych General Chief Complaint: ETOH/Substance Use Stated Complaint: SUBSTANCE ABUSE Time Seen by Provider: 06/08/23 04:58 Source: patient Mode of arrival: EMS Limitations: no limitations History of Present Illness HPI Narrative: 57 yo male with hx of ETOH abuse, HLD, HTN, anemia, pneumonia, COPD states he smoked something with a sex worker and then they found him in a parked car unresponsive with pin point pupils. He was given 12mg IN narcan and woke up. He denies using opiates. He states he feels much better. No SI. MD complaint: substance abuse Onset (ago): hour(s) (1+) Duration: constant History of same: Yes Relieving factors: none Exacerbating factors: drug use Context: recent drug abuse Associated psychiatric symptoms: none Associated symptoms: denies other symptoms Treatments prior to arrival: none Related Data Previous Rx's Medication Instructions Recorded magnesium oxide 400 mg (241.3 mg 800 mg (2 x 400 mg (241.3 mg 03/06/23 magnesium) tablet magnesium)) PO DAILY 30 days #60 tabs multivitamin with folic acid 400 1 tab PO DAILY #60 tabs 03/06/23 mcg tablet (Daily-Linda (with folic acid)) spironolactone 50 mg tablet 100 mg (2 x 50 mg) PO DAILY #60 03/06/23 tabs vitamin A 3,000 mcg (10,000 unit) 1 cap PO DAILY #30 caps 03/06/23 capsule clonazepam 2 mg tablet 2 mg PO DAILY 28 days #28 tabs 05/01/23 omeprazole 20 mg capsule,delayed 20 mg PO BIDWMEAL #60 caps 05/01/23 release tramadol 50 mg tablet 50 mg PO DAILY 30 days #14 tabs 05/01/23 albuterol sulfate 90 mcg/actuation 2 puff inhalation Q6H PRN 05/31/23 aerosol inhaler (Ventolin HFA) shortness of breath or wheezing #18 grams sacubitril 24 mg-valsartan 26 mg 1 tab PO BID 30 days #60 tabs 05/31/23 tablet (Entresto) furosemide 40 mg tablet 40 mg PO DAILY 30 days #30 caps 06/03/23 Allergies Allergy/AdvReac Type Severity Reaction Status Date / Time lisinopril Allergy Unknown ? kidney Verified 05/31/23 14:54 issue possible r/t to this med Review of Systems Review of Systems: Constitutional : No Fever, No Chills ENT/Mouth : No Ear Pain, No Nasal Congestion, No sore throat Eyes: No Eye Pain, No Swelling, No Redness Cardiovascular : No Chest Pain, No SOB Respiratory : No Cough, No Sputum, No Dyspnea Gastrointestinal : No Nausea, No Vomiting, No Diarrhea, No Hematochezia, No Melena Genitourinary : No Dysuria, No Urinary Frequency, No Hematuria Musculoskeletal : No Myalgias Skin : No Skin Lesions, No rash Neuro : No Weakness, No Numbness, No Paresthesias, No Dizziness, No Headache Psych : no Anxiety, no Depression, no SI/HI All other systems reviewed and are negative [facility] Past Medical History Attestation statement: The following information was validated with the patient. Source: old records reviewed Medical History Obesity (BMI 30-39.9) Ascites Cirrhosis Elevated LFTs Sinus tachycardia Cardiomyopathy Obesity History of avascular necrosis of capital femoral epiphysis Lumbar spondylosis Spondylosis Anemia Hypogonadism Avascular necrosis of bone Surgical History History of hand surgery Hx of bilateral hip replacements Family History Family History Father Heart problem CVD (cardiovascular disease) Myocardial infarction Mother No problems noted. Daughter In good health Son In good health Sister In good health Social History Social History Household Members Other:: Lives with mom Housing: House Alcohol intake: never Patient Tobacco Use Status: Current everyday Tobacco user Tobacco use type: Cigarette Cigarette Packs Per Day: 0.5 Cigarettes Per Day: 10 Smoked in Last 30 Days: Yes e-Cigarette/Vaping Use: Never Used Use of substances other than those prescribed or required for medical reasons: Unknown Substance Use Type: Marijuana Last Used Substance: Just Prior to Admission Any prior treatment program specific to substance use: No Advance Directives: No Advance Directives Information Provided: No service: No Current occupational status: disabled Cognitive needs: No Hearing needs: No Vision needs: Yes (Pt has not seen an eye doctor for a long time. ) Physical Exam Vital Signs: Vital Signs: Last Vital Signs Temp 97.8 F 06/08/23 04:33 Pulse 92 06/08/23 04:44 Resp 20 06/08/23 04:44 BP 103/62 06/08/23 04:44 Pulse Ox 96 06/08/23 04:44 O2 Del Method Room Air 06/08/23 04:44 BMI result Body Mass Index 32.7 Appearance: Alert. Oriented X3. No acute distress. Eyes: Pupils equal, round and reactive to light. ENT: Pharynx normal. atraumatic Neck: Normal inspection. Neck supple. CVS: Normal heart rate and rhythm. Pulses normal. Respiratory: No respiratory distress. Breath sounds normal. Abdomen: Soft and nontender. Skin: Skin warm and dry. Normal skin color. Normal skin turgor. Extremities: No lower extremity edema. No calf ttp Neuro: Oriented X 3. No motor deficit. No sensory deficit. Course Course Course Narrative: observation ended 733am attempting to find his car , he declines detox or SUDE evaluation Medications Administered Discontinued Medications Generic Name Dose Route Start Last Admin Trade Name Freq PRN Reason Stop Dose Admin Naloxone HCl 8 mg 06/08/23 05:11 06/08/23 06:37 Naloxone Hcl Nasal Take Home 4 Mg [place] NOSTRILALT 06/08/23 05:12 8 mg ONCE ONE Administration Medical Decision Making Medical Decision Making [facility] Narrative: 57 yo male with hx of ETOH abuse, HLD, HTN, anemia, pneumonia, COPD here with c/o smoking something with a sex worker then needing narcan 12mg - he denies n eeding detox or having opiate abuse problem. Will observe until more awake and assess need for repeat narcan. No SI. narcan to take home ordered. physician observation started 528am Differential Diagnosis Differential Diagnoses: The differential diagnosis associated with the presentation includes ETOH abuse, drug abuse Admission/Observation Consideration of admission/observation: Escalation of care including admission/observation considered observe until more clinically sober Lab Data MDM Lab Attestation statement: I reviewed the patient's lab results. Independent Interpretation I performed an independent interpretation of an: EKG Interpretation: Rate: 92 Rhythm: NSR [place]: normal Normal P waves. Normal GAIL. Normal QRS complex. ST T wave : normal no SAM qTC: 474 prior studies: no acute ischemia The study has been interpreted contemporaneously by me. . Discharge Plan Discharge Clinical Impression: Alcohol abuse Accidental drug overdose Qualifiers: Encounter type: initial encounter Qualified Code(s): T50.901A - Poisoning by unspecified drugs, medicaments and biological substances, accidental (unintentional), initial encounter Patient Disposition: Home, Self-Care Instructions: Abuse of Alcohol (ED), Adult Overdose (ED) Additional Instructions: carry narcan with you at all times. return for any worsening symptoms or concerns. do not operate heavy machinery or drive today. Prescriptions: No Action multivitamin with folic acid [Daily-Linda (with folic acid)] 400 mcg tablet 1 tab PO DAILY Qty: 60 3RF vitamin A 3,000 mcg (10,000 unit) capsule 1 cap PO DAILY Qty: 30 3RF magnesium oxide 400 mg (241.3 mg magnesium) tablet 800 mg PO DAILY 30 Days Qty: 60 6RF spironolactone 50 mg tablet 100 mg PO DAILY Qty: 60 6RF albuterol sulfate [Ventolin HFA] 90 mcg/actuation HFA aerosol inhaler 2 puff inhalation Q6H PRN (Reason: shortness of breath or wheezing) Qty: 18 5RF furosemide 40 mg tablet 40 mg PO DAILY 30 Days Qty: 30 3RF tramadol 50 mg tablet 50 mg PO DAILY 30 Days Qty: 14 0RF clonazepam 2 mg tablet 2 mg PO DAILY 28 Days Qty: 28 0RF omeprazole 20 mg capsule,delayed release(DR/EC) 20 mg PO BIDWMEAL Qty: 60 3RF Entresto 24-26 mg tablet 1 tab PO BID 30 Days Qty: 60 5RF
[2023-06-08] MEDS: Naloxone HCl Nasal TAKE HOME 4 MG SPRAY 8 MG NOSTRILALT (06:37)
--- NOTE | 2023-06-08 07:53 | PC.NURSE ---
Patient brought to [facility] to retrieve personal belongings
[2023-06-08 07:54] VITALS: BP 123/71; PULSE 99; RESP 18; TEMP 36.6; O2SAT 98
== END 2023-06-08 07:55 | disposition home or self-care (01) ==
PROVIDERS: Emergency Provider Emergency Medicine; PCP Physician Assistant
DX: T50.901A Poisoning by unspecified drugs, medicaments and biological substances, accidental (unintentional), initial encounter (principal); Y92.810 Car as the place of occurrence of the external cause; F10.10 Alcohol abuse, uncomplicated; I10 Essential (primary) hypertension; J44.9 Chronic obstructive pulmonary disease, unspecified
CPT/HCPCS: 93005; 99283; 99284

== ENCOUNTER → 2023-06-08 04:47 | Outpatient (BNV) | payer OTHER, SELFPAY | PROVIDERS: Emergency Provider Emergency Medicine; PCP Physician Assistant; Visit Provider Internal Medicine Cardiovascular Disease | DX: R94.31 Abnormal electrocardiogram [ECG] [EKG] (principal) | CPT/HCPCS: 93010 ==

== ENCOUNTER 2023-07-30 13:53 | Outpatient (REF) | payer OTHER, SELFPAY ==
[2023-07-30 15:13] LABS: Alanine Aminotransferase 17 U/L (0-40); Albumin Level 3.8 g/dL (3.5-5.0); Alkaline Phosphatase 83 U/L (39-117); Anion Gap 15 (12-20); Aspartate Amino Transferase 19 U/L (5-37); Bilirubin Total 0.5 mg/dL (0.0-1.0); Blood Urea Nitrogen 22 mg/dL (9-16); Calcium 9.4 mg/dL (8.4-10.2); Carbon Dioxide 26 mmol/L (22-29); Chloride 100 mmol/L (96-108); Estimated Glomerular Filt Rate 46; Glucose Fasting 133 mg/dL (60-99); Potassium 4.9 mmol/L (3.3-5.1); Sodium 136 mmol/L (135-145); Total Protein 7.6 g/dL (6.5-8.0)
[2023-08-03 17:14] LABS: Testosterone, Total 1664 ng/dL (250-1100)
== END 2023-07-30 13:54 | disposition home or self-care (01) ==
LOC: HO.LAB 13:53
PROVIDERS: Internal Medicine; PCP Physician Assistant; Visit Provider Physician Assistant
DX: R79.89 Other specified abnormal findings of blood chemistry (principal); I10 Essential (primary) hypertension
CPT/HCPCS: 36415; 80053; 84402; 84403

== ENCOUNTER 2024-07-14 15:27 | Outpatient (REF) | payer OTHER, SELFPAY ==
--- OUTSIDE RECORDS SUMMARY | 2024-07-14 15:32 | XMS_ITS | Clinical Summary ---
Author Organization [facility] Address [address] [place] [id number] Phone Care Team Providers Care Gore Inserter Name Role Phone Wali Carmona DO Primary Care Provider [phone] Medications albuterol HFA (PROVENTIL HFA;VENTOLIN HFA) 108 (90 Base) MCG/ACT inhaler Inhale 2 puffs every 6 (six) hours if needed for wheezing Active Buprenorphine 15 MCG/HR patch weekly Place 1 patch on the skin per week Active furosemide (LASIX) 40 MG tablet Take 40 mg by mouth 2 (two) times a day Active Multiple Vitamin (multivitamin) tablet Take 1 tablet by mouth 1 (one) time each day Active omeprazole (PriLOSEC) [address] capsule Take 20 mg by mouth 1 (one) time each day Do not crush or chew. Active pravastatin (PRAVACHOL) 40 MG tablet Take 40 mg by mouth 1 (one) time each day Active rifAXIMin (XIFAXAN) 550 MG tablet Take 550 mg by mouth twice a day Active spironolactone (ALDACTONE) 25 MG tablet Take 25 mg by mouth 1 (one) time each day Active Active Problems Problem Noted Date Diagnosed Date Acute nontraumatic kidney injury 04/07/2021 Hypokalemia 04/07/2021 Family History Medical History Relation Comments Heart disease Father Hypertension Father Diabetes Mother Heart disease Mother Hypertension Mother Heart disease Paternal Grandfather Hypertension Paternal Grandfather Stroke Paternal Grandfather Hypertension Sister Relation Status Comments Father Mother Paternal Grandfather Sister Social History Tobacco Use Types Packs/Day Years Used Date Smoking Tobacco: Every Day Smokeless Tobacco: Current Alcohol Use Standard Drinks/Week Comments Yes 0 (1 standard drink = 0.6 oz pur e alcohol) Sex and Gender Information Value Date Recorded Sex Assigned at Not on file Legal Sex Male 4:47 PM EST Gender Identity Not on file Sexual Orientation Not on file Plan of Treatment Health Maintenance Due Date Last Done Comments Hepatitis B Vaccine (1 of 3 - 19+ 3-dose series) 10/23 Pneumococcal Vaccine: 50+ Years (1 of 2 - PCV) 987 Colorectal Cancer Screening: Annual FOBT 10/23/2016 Colorectal Cancer Screening: Colonoscopy 10/23/2016 Colorectal Cancer Screening: Sigmoidoscopy 10/23/2016 Influenza Vaccine (Season Ended) 2024 Insurance [facility] ([id number]) LESLI SILVEIRA [id number] [facility] ([id number]) Care Teams Gore Inserter Relationship Specialty Start Date End Date Mathew DO Wali [facility] [address] [place] PCP - General 04/05/20
[2024-07-14 19:51] LABS: Hematocrit 43.3 % (42.0-52.0); Hemoglobin 13.9 g/dl (14.0-18.0); Mean Corpuscular HGB Conc 32.1 g/dl (31.0-36.0); Mean Corpuscular Hemoglobin 31.9 pg (27.0-33.0); Mean Corpuscular Volume 99.3 fL (80.0-98.0); Mean Platelet Volume 10.1 fL (9.4-12.4); Platelet Count 231 X10*3/uL (160-400); Red Blood Count 4.36 X10*6/uL (4.60-5.80); Red Cell Distribution Width 12.2 % (11.0-16.0); White Blood Count 8.4 X10*3/uL (4.8-10.8)
[2024-07-14 20:09] LABS: Alanine Aminotransferase 38 U/L (0-40); Albumin Level 4.5 g/dL (3.5-5.0); Alkaline Phosphatase 112 U/L (39-117); Anion Gap 19 (12-20); Aspartate Amino Transferase 28 U/L (5-37); Bilirubin Total 0.6 mg/dL (0.0-1.0); Blood Urea Nitrogen 12 mg/dL (9-16); Calcium 9.9 mg/dL (8.4-10.2); Carbon Dioxide 25 mmol/L (22-29); Chloride 101 mmol/L (96-108); Cholesterol 262 mg/dL (<200); Estimated Glomerular Filt Rate 56; Glucose Fasting 81 mg/dL (60-99); HDL Cholesterol 44 mg/dL (>40); LDL Cholesterol Calculated 184 mg/dL (<100); Potassium 4.7 mmol/L (3.3-5.1); Sodium 140 mmol/L (135-145); Total Protein 7.8 g/dL (6.5-8.0); Triglycerides 173 mg/dL (<150)
[2024-07-14 20:50] LABS: Folate 15.4 ng/mL (> or = 4.0); Prostate Specific Antigen Scr 0.37 ng/mL (<0.05-4.0); Vitamin B12 475 pg/mL (200-900)
[2024-07-23 13:04] LABS: Testosterone, Free 104.8 pg/mL (35.0-155.0); Testosterone, Total 729 ng/dL (250-1100)
== END 2024-07-14 15:28 | disposition home or self-care (01) ==
LOC: HO.LAB 15:27
PROVIDERS: PCP Physician Assistant; Visit Provider Physician Assistant
DX: E78.5 Hyperlipidemia, unspecified (principal); E53.8 Deficiency of other specified B group vitamins; D53.9 Nutritional anemia, unspecified; R79.89 Other specified abnormal findings of blood chemistry; Z12.5 Encounter for screening for malignant neoplasm of prostate
CPT/HCPCS: 36415; 80053; 80061; 82607; 82746; 84153; 84402; 84403; 85027

== ENCOUNTER 2024-07-17 16:12 | Outpatient (AMB) | payer OTHER, SELFPAY ==
[2024-07-17 16:22] VITALS: BP 114/70; PULSE 84; TEMP 36.2; O2SAT 94; BMI 30.3
--- NOTE | 2024-07-17 16:22 | MHC.PC.OV ---
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 kidney issue possible r/t to this med Medication List - Last Reconciled 07/17/24 by Enio Gabriel PA-C albuterol sulfate 90 mcg/actuation (Ventolin HFA) 2 puffs inhalation Q6H PRN clonazepam 2 mg PO DAILY PRN 7 days furosemide 40 mg PO DAILY 30 days magnesium oxide 800 mg (2 x 400 mg (241.3 mg magnesium)) PO DAILY 30 days multivitamin with folic acid 400 mcg (Daily-Linda (with folic acid)) 1 tab PO DAILY omeprazole 20 mg PO BIDWMEAL sacubitril-valsartan 24-26 mg (Entresto) 1 tab PO BID spironolactone 100 mg (2 x 50 mg) PO DAILY tramadol 50 mg PO DAILY 30 days vitamin A 1 cap PO DAILY Tobacco use date assessed: 07/17/24 Dental Screening Dental Screen Date: 07/17/24 Did you have a dental visit in the last 12 months?: Yes Did you have a dental problem in the last 6 months where you did not have access to dental care?: No Was dental information given to patient?: Patient has dentist HPI Annual PE HPI Details Patient is a 58-year-old male here today for a routine annual physical. Patient has a past medical history significant for chronic lumbar spine pain, history of alcohol use disorder with cirrhosis and ascites generalized anxiety disorder, tobacco use disorder, COPD, congestive heart failure with reduced ejection fraction. Concerns--> most recent testosterone level above 3700. He has been using exogenous IM injections of testosterone on his own and since hearing the lab results he has reduced his dosage by half. Otherwise CBC was normal. .. CHF: Has been fairly stable on current spironolactone and furosemide dosing. He has restarted Entresto. Has no further follow up with Cardiology.. Most recent echocardiogram showing left ventricular ejection fraction estimated at 27%. He denies any shortness of breath or worsening lower extremity edema. .. Tobacco dependency: Unfortunately continues to smoke cigarettes and has not been able to quit. He declines offers to start nicotine replacement. .. Anxiety: Still does suffer from anxiety and does use clonazepam on an as-needed basis. He is asking for an increase dose to 2 mg tablets for his anxiety. Again not interested in speaking with a mental health therapist at this time .. Hypogonadism: Most recent testosterone done in 2019 showing very low reading. Of note patient has been on chronic narcotics. Offered referral to Endocrinology though he declines. As above has been using exogenous IM testosterone on his own and most recent lab showing testosterone level above 3700. Warned him about the cardiovascular effects of having elevated testosterone. .. Former Alcohol use disorder: He reports he has drastically reduced his alcohol intake. Most recent liver enzymes normal Has had history alcohol dependency. Unfortunately continues to drink though reports he has reduced his drinking. .. Tobacco dependency: Continues to smoke and does understand he needs to quit smoking. .. Lumbar disc disease: Has a long history of lumbar disc disease of the chronic pain for him. Was seen by pain management in the past and does report getting injections which were not effective. Was on narcotic pain medication as well in the past. He is asking for short term script for a medication for his pain as needed thus we agreed upon tramadol to use on as needed basis. He is reconsidering being seen at pain management clinic for pain reduction modalities again. Colorectal cancer screening: willing to do cologaurd Vaccines: Up-to-date with pneumonia vaccine needs up-to-date tetanus vaccine, considering shingles vaccine [facility] Medical History Obesity (BMI 30-39.9) Ascites Cirrhosis Elevated LFTs Sinus tachycardia Cardiomyopathy Obesity History of avascular necrosis of capital femoral epiphysis Lumbar spondylosis Spondylosis Anemia Hypogonadism Avascular necrosis of bone Surgical History History of hand surgery Hx of bilateral hip replacements Family History Father Heart problem CVD (cardiovascular disease) Myocardial infarction Mother No problems noted. Daughter In good health Son In good health Sister In good health Social History (Updated 07/17/24 @ 16:35 by Enio Gabriel PA-C) Household Members Other:: Lives with mom Housing: House Alcohol intake: former Year quit: 2024 Patient Tobacco Use Status: Current everyday Tobacco user Tobacco use type: Cigarette Cigarette Packs Per Day: 0.5 Cigarettes Per Day: 10 e-Cigarette/Vaping Use: Never Used Substance Use Type: Marijuana service: No Current occupational status: disabled Cognitive needs: No Hearing needs: No Vision needs: Yes (Pt has not seen an eye doctor for a long time. ) Questionnaire PHQ-9 Over the last 2 weeks, how often have you been bothered by any of the following problems? 1. Little interest or pleasure in doing things: more than half the days 2. Feeling down, depressed, or hopeless: more than half the days 3. Trouble falling or staying asleep, or sleeping too much: more than half the days 4. Feeling tired or having little energy: more than half the days 5. Poor appetite or overeating: more than half the days 6. Feeling bad about yourself - or that you are a failure or have let yourself or your family down: more than half the days 7. Trouble concentrating on things, such as reading the newspaper or watching television: more than half the days 8. Moving or speaking so slowly that other people could have noticed. Or the opposite - being so fidgety or restless that you have been moving around a lot more than usual: not at all 9. Thoughts that you would be better off or of hurting yourself in some way: not at all Total score: 14 Depression Screening Interpretation: Positive Depression Screening Follow-up: Existing condition Depression Screening Done: Yes 66894 - PHQ-9 Billing: Yes Source: Developed by Drs. Austin Ruiz, Ml Fontanez, Marlo Beyer and colleagues, with an educational sean from [employer]. Thrive Questionnaire Date Thrive assessed: 07/17/24 I am a: Patient What is your living situation today?: I choose not to answer this question Within the past 12 months, did the food you bought not last and you didn't have the money to get more?: I choose not to answer this question Within the past 12 months, did you worry whether your food would run out before you got money to buy more?: I choose not to answer this question Do you have trouble paying for medicines?: I choose not to answer this question Do you have trouble getting transportation to medical appointments?: Yes Do you have trouble paying your heating and electricity bill?: I choose not to answer this question Do you have trouble taking care of your child, family member or friend?: I choose not to answer this question Do you have trouble with day-to-day activities such as bathing, preparing meals, shopping, managing finances, etc.?: No Are you currently unemployed and looking for a job?: I choose not to answer this question Are you interested in more education?: I choose not to answer this question Please select the resources that you would like help with: None Currently or been in a relationship where the following occur: I choose not to answer THRIVE Score: 1 AUDIT C Alcohol Use Questionnaire (AUDIT-C) 1. How often do you have a drink containing alcohol?: Never 3. How often do you have six or more drinks on one occasion?: Never Total Score: 0 OLMAN-7 AMB Questionnaire OLMAN-7 Date OLMAN - 7 assessed: 07/17/24 Feeling nervous, anxious, or on edge: 2 = More than half the days Not being able to stop or control worryin = More than half the days Worrying too much about different things: 2 = More than half the days Trouble relaxin = More than half the days Being so restless that it is hard to sit still: 0 = Not at all Becoming easily annoyed or irritable: 2 = More than half the days Feeling afraid as if something awful might happen: 2 = More than half the days Total OLMAN-7 score (0-4 normal; 5-9 mild; 10-14 moderate; 15-21 severe): 12 Source: Developed by Drs. Austin Ruiz, Ml Fontanez, Marlo Beyer and colleagues, with an educational sean from [employer]. OLMAN-7 Assessment Billing OLMAN-7 Assessment Tool: OLMAN-7 Assessment 37611 Review of Systems Const Denies body aches, Denies chills, Denies excessive sweating, Denies fatigue, Denies fever(s) and Denies headache(s) Eyes Denies blurry vision ENT Denies dysphagia, Denies vertigo, Denies dizziness, Denies headache(s), Denies hearing loss and Denies tinnitus Card Denies chest pain, Denies chest pain with activity, Denies syncope, Denies irregular heart rhythm and Denies dyspnea Resp Denies chest congestion, Denies cough, Denies hemoptysis, Denies dyspnea and Denies wheezing GI Denies abdominal pain, Denies melena, Denies hematochezia, Denies coffee ground emesis, Denies dysphagia, Denies diarrhea, Denies nausea and Denies vomiting Denies difficulty urinating, Denies dysuria, Denies urinary frequency, Denies urinary hesitancy and Denies urinary urgency Musc Denies arthralgias, Denies limited range of motion, Denies muscle cramps and Denies muscle weakness Skin/Breast Denies rash and Denies skin ulcer Neuro Denies Abnormal speech present, Denies confusion, Denies vertigo, Denies dizziness, Denies syncope, Denies headache(s), Denies memory loss and Denies seizure-like activity Psych Denies anxiety, Denies confusion, Denies depression, Denies memory loss, Denies panic attacks and Denies paranoia Endo Denies excessive sweating, Denies fatigue, Denies flushing, Denies polydipsia and Denies polyuria Aller/Immun Denies wheezing Physical exam (Primary Care) Vital Signs: Last Vital Signs Temp 97.1 F 07/17/24 16:22 Pulse 84 07/17/24 16:22 BP 114/70 07/17/24 16:22 Pulse Ox 94 07/17/24 16:22 Oxygen Delivery Method Room Air 07/17/24 16:22 BMI result Body Mass Index 30.3 BMI Assessment/Plan discussion: High BMI High, discussed plan: lifestyle, weight reduction, dietary and physical activity Tobacco/Smoking Status: Tobacco use Status Tobacco use date assessed 07/17/24 07/17/24 16:27 Patient Tobacco Use Status Current everyday Tobacco 07/17/24 16:35 Tobacco use type Cigarette 07/17/24 16:35 e-Cigarette/Vaping Use Never Used 07/17/24 16:35 PHQ-9: PHQ-9 Score PHQ-9: Total score 14 07/17/24 16:32 Depression Screening Interpretation: Positive Depression Screening Follow-up: Existing condition Thrive Assessment: Date of Thrive Assessment Date Thrive assessed 07/17/24 07/17/24 16:27 Currently or been in a relationship where the following occur: I choose not to answer Const General: cooperative, comfortable, no acute distress, alert and awake; No confusion Orientation/consciousness: oriented to person, oriented to place, patient oriented x3 and No confusion HENMT Head: Yes normocephalic Ears: external ears normal and TM's normal bilaterally Face and sinus: No sinus tenderness Mouth: Normal oral and palatal mucosa present and tongue normal Teeth and gingiva: dentition normal and gingiva normal Throat: Yes posterior oropharynx normal, Yes tonsils normal and Yes uvula midline Eyes Conjunctivae: conjunctivae normal Sclerae: sclerae normal Pupils: Equal, round and reactive pupils present EOM: EOMs intact bilaterally Direct Ophthalmoscopy: No no photophobia Neck Neck: Yes no lymphadenopathy, No tender and Yes no JVD Thyroid: Thyroid normal Carotids: no bruits Chest Chest palpation & inspection: no tenderness Resp Effort & Inspection: normal respiratory effort, no audible wheezes, not labored and no stridor Auscultation: no crackles, no rales, no rhonchi and no wheezes Cardio Jugular venous distension: no JVD Rate: regular rate, not bradycardic and not tachycardic Rhythm: regular rhythm Bruits: no carotid bruits Peripheral pulses: Peripheral pulses 2+ throughout GI Inspection: Yes normal to inspection, No abdominal wall ecchymosis and No visible herniation Palpation (GI): Soft to palpation, nontender, no guarding, not rigid and No hepatosplenomegaly present Auscultation: normoactive bowel sounds General: Yes no CVA tenderness Back/Spine/Pelvis Back: no CVA tenderness and No back tenderness Cervical Spine: cervical ROM normal Thoracic/Lumbar Spine: thoracic and lumbar spine normal to inspection, straight leg raise negative bilaterally, No thoraco-lumbar ROM limited and No lumbar spinal tenderness Skin Lesions: no lesions Rashes: no rashes Wounds: no wounds Neuro General: oriented to person, oriented to place, patient oriented x3, CN's II-XI intact bilaterally and No confusion Cranial nerves: Yes Equal, round and reactive pupils present and Yes Normal accommodation reflex present Cognition (Neuro): normal cognition Speech: No Abnormal speech present Gait exam (Neuro): Normal gait present Motor exam (neuro): 5/5 motor strength present throughout Extrem Right upper extremity: full ROM; no cyanosis Left upper extremity: full ROM; no cyanosis Right lower extremity: no edema Left lower extremity: no edema Psych Appearance: grossly normal Mental Status: mental status grossly normal Affect: normal affect Attitude: cooperative Thought process: Normal thought process present Coding Level of Care Code Est Pt Prev Care 40-64y(06079) Diagnoses Annual physical exam Z00.00 Cardiomyopathy, unspecified type I42.9 Cardiomyopathy type: unspecified Alcohol abuse F10.10 Hypogonadism in male E29.1 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 Chronicity: chronic Gout etiology: idiopathic Gout site: ankle Laterality: right Presence of tophus: without tophus Additional Codes OLMAN-7 Assessment Billing - OLMAN-7 Assessment Tool: OLMAN-7 Assessment 15245 ([id number]) PHQ-9 - 74021 - PHQ-9 Billing: Yes ([id number]) Assessment & Plan Assessment & Plan (1) Annual physical exam: Code(s): Z00.00 - Encounter for general adult medical examination without abnormal findings Category: Medical Plan: As per HPI (2) Cardiomyopathy: Code(s): I42.9 - Cardiomyopathy, unspecified Category: Medical Qualifiers: Cardiomyopathy type: unspecified Qualified Code(s): I42.9 - Cardiomyopathy, unspecified Plan: In the most recent echocardiogram, LVEF 27%. LV cavity size dilated. In the past, LVEF has been quite variable. In 2017, 25-30%. During the stress test from 2020, it actually showed normal gated LVEF. However, that time he was also on guideline based medicines. Myocardial perfusion imaging study from 2020 showed normal perfusion. At this time, he seems euvolemic. Hence no need for additional diuretics. Continue what he is taking. (3) Alcohol abuse: Code(s): F10.10 - Alcohol abuse, uncomplicated Category: Social Hx Plan: He reports he has quit drinking over last few weeks. I CONGRATULATED HIM ON THIS (4) Hypogonadism in male: Code(s): E29.1 - Testicular hypofunction Category: Medical Plan: Continues to use exogenous IM testosterone. Most recent testosterone level checked was very elevated. We did discuss urology referral to evaluate him in stabilize his normal testosterone production though he declines at this time. (5) Gout: Code(s): M10.9 - Gout, unspecified Category: Medical Qualifiers: Chronicity: chronic Gout etiology: idiopathic Gout site: ankle Laterality: right Presence of tophus: without tophus Qualified Code(s): M1A.0710 - Idiopathic chronic gout, right ankle and foot, without tophus (tophi) Plan: He does report having intermittent episodes (once per month) of acute ankle and wrist pain and swelling. Signs and symptoms concerning for gout. Advised on low purine diet. Suspect his gout will get better since he has stopped drinking. Will supply patient with as needed use of colchicine to use when he has a gout flare. Orders: Orders Lipid Panel 07/17/24 E78.5 - Hyperlipidemia, unspecified NT-proBNP 07/17/24 I50.22 - Chronic systolic (congestive) heart failure CA echo transthoracic complete 07/17/24 I50.22 - Chronic systolic (congestive) heart failure Uric Acid 07/17/24 M1A.0710 - Idiopathic chronic gout, right ankle and foot, without tophus (tophi) Comprehensive [place]. Panel Fast 07/17/24 E78.5 - Hyperlipidemia, unspecified Complete Blood Count no Diff 07/17/24 E78.5 - Hyperlipidemia, unspecified Testosterone, Free/Total 07/17/24 R79.89 - Other specified abnormal findings of blood chemistry Medications: New colchicine 0.6 mg PO DAILY 7 days 7 tabs 0RF M1A.0710 - Idiopathic chronic gout, right ankle and foot, without tophus (tophi) Refilled clonazepam 2 mg PO DAILY 7 days PRN 7 tabs 0RF anxiety F41.1 - Generalized anxiety disorder Patient Instructions: Goal: Blood pressure to remain below 140/90, controlled congestive heart failure Barriers: Adherence to physical activity and healthy eating habits
--- OUTSIDE RECORDS SUMMARY | 2024-07-17 18:36 | XMS_ITS | Clinical Summary ---
Author Organization [facility] Address [address] [place] [address] Phone Care Team Providers Care Veneer Jointer Helper Name Role Phone Wali Carmona DO Primary Care Provider [phone] Medications albuterol HFA (PROVENTIL HFA;VENTOLIN HFA) 108 [...] 10/23/2016 Influenza Vaccine (Season Ended) 2024 Insurance [facility] ([id number]) LESLI SILVEIRA [phone] [facility] ([id number]) Care Teams Veneer Jointer Helper Relationship Specialty Start Date End Date Mathew DO Wali [facility] [address] [place] PCP - General 04/05/20
== END 2024-07-17 17:04 | disposition home or self-care (01) ==
LOC: HO.HMCH 16:13
PROVIDERS: PCP Physician Assistant; Visit Provider Physician Assistant
DX: Z00.00 Encounter for general adult medical examination without abnormal findings (principal); I42.9 Cardiomyopathy, unspecified; F10.10 Alcohol abuse, uncomplicated; E29.1 Testicular hypofunction; M1A.0710 Idiopathic chronic gout, right ankle and foot, without tophus (tophi)

== ENCOUNTER → 2024-07-17 16:12 | Outpatient (BNVA) | payer OTHER, SELFPAY | PROVIDERS: PCP Physician Assistant; Visit Provider Physician Assistant | DX: Z00.01 Encounter for general adult medical examination with abnormal findings (principal); M54.50 Low back pain, unspecified; K74.60 Unspecified cirrhosis of liver; F41.1 Generalized anxiety disorder; J44.9 Chronic obstructive pulmonary disease, unspecified; I50.9 Heart failure, unspecified; I42.9 Cardiomyopathy, unspecified; F10.10 Alcohol abuse, uncomplicated; E29.1 Testicular hypofunction; M1A.0710 Idiopathic chronic gout, right ankle and foot, without tophus (tophi); F17.210 Nicotine dependence, cigarettes, uncomplicated; I50.22 Chronic systolic (congestive) heart failure; E78.5 Hyperlipidemia, unspecified | CPT/HCPCS: 96127; 99396 ==

== ENCOUNTER → 2024-08-14 13:44 | Outpatient (REF) | payer OTHER, SELFPAY ==
--- NOTE | 2024-08-14 13:49 | CA_ITS ---
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 Technically limited study with poor endocardial definition most likely due to body habitus 2. Left ventricular is not well visualized but LV systolic function appears significantly reduced with LVEF of 25-30% with possible underlying regional wall motion abnormality although this can not be completely confirmed with impaired relaxation filling pattern 3. Normal cardiac valvular Dopplers Findings Procedure Information The patient declines contrast. Left Ventricle The left ventricle was not well visualized. There is normal left ventricular wall thickness. The left ventricular systolic function is severely decreased. The visually estimated ejection fraction is between 25-30%. There is evidence of regional wall motion abnormalities. Spectral Doppler is indicative of an impaired relaxation filling pattern. Right Ventricle Normal right ventricular cavity size. There is normal right ventricular systolic function. Atria The left atrium is mildly dilated. Interatrial shunt cannot be excluded. The right atrium was not well visualized. Aortic Valve The aortic valve was not well visualized. There is mild calcification of the aortic valve. There is no aortic valve stenosis. There is no aortic valve regurgitation. Mitral Valve Likely normal mitral valve structure and function. There is no mitral valve regurgitation. There is no mitral valve stenosis. Pulmonic Valve The pulmonic valve was not well visualized. Tricuspid Valve The tricuspid valve was not well visualized. Tricuspid regurgitation envelope is inadequate for calculation of right ventricular systolic pressure. Normal right atrial pressure. Great Vessels The aorta was not well visualized. The pulmonary artery was not well visualized. Venous The inferior vena cava is normal in size. Pericardium/Pleural The pericardium was not well visualized. Prior Study Comparison No significant change compared to prior study dated: 05/28/2023. Recommendations, Care & Conclusions Recommend contrast in the future to improve endocardial definition. Measurements 2D Linear Measurements LVOT Diam: 2.60 3.0+(-)1.3 cm Aortic Valve AoV Pk Sabas: 1.23 AoV Mn Sabas: 0.90 AoV VTI: 0.26 AoV Pk Grad: 6.00 Aov Mn Grad: 4.00 WINDY Cont.VTI: 3.44 LVOT LVOT Pk Sabas: 0.84 LVOT Mn Sabas: 0.56 LVOT VTI: 0.17 LVOT Pk Grad: 3.00 LVOT Mn Grad: 1.00 LVOT Diam: 2.60 LVOT Area: 5.31 Right Ventricle TAPSE (mm): 21.70 TVS' Sabas: 11.00 Tricuspid Valve RA Press: 8.00 Great Vessels Aorta Sinus of Valsalva: 3.61 2.0-3.5 cm Updated in Other Vendor System with Status of Final Julien Marquez MD electronically signed on 08/14/2024 4:03:52 PM with status of Final
--- OUTSIDE RECORDS SUMMARY | 2024-08-14 13:54 | XMS_ITS | Clinical Summary ---
Author Organization [facility] Address [address] [place] [address] Phone Care Team Providers Care Form Raiser Name Role Phone Wali Carmona DO Primary Care Provider [phone] Medications albuterol HFA (PROVENTIL HFA;VENTOLIN HFA) 108 [...] 10/23/2016 Influenza Vaccine (Season Ended) 2024 Insurance [facility] ([id number]) L[place] S[place]IR[place] [phone] [facility] ([id number]) Care Teams Form Raiser Relationship Specialty Start Date End Date Mathew DO Wali [facility] [address] [place] PCP - General 04/05/20
== END ==
LOC: HO.CARD 13:44
PROVIDERS: PCP Physician Assistant; Visit Provider Physician Assistant
DX: I50.22 Chronic systolic (congestive) heart failure (principal)
CPT/HCPCS: 93306

== ENCOUNTER → 2024-08-14 13:49 | Outpatient (BNV) | payer OTHER, SELFPAY | PROVIDERS: PCP Physician Assistant; Visit Provider Internal Medicine Cardiovascular Disease | DX: I50.22 Chronic systolic (congestive) heart failure (principal); I35.8 Other nonrheumatic aortic valve disorders | CPT/HCPCS: 93306 ==

== ENCOUNTER 2025-02-13 14:39 | Outpatient (REF) | payer OTHER, SELFPAY ==
--- OUTSIDE RECORDS SUMMARY | 2025-02-13 14:56 | XMS_ITS | Clinical Summary ---
Author Organization 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 Not on liat e 07/22/2022 Are you concerned about learning? Not on file 07/22/2022 No 07/22/2022 No 07/22/2022 Digital Access Answer Date Recorded No 08/20/2022 No 08/20/2022 No 08/20/2022 Reliable internet access at home? Not on file 08/20/2022 Device with a working camera? Not on file Sex and Gender Information Value Date Recorded Sex Assigned at Not on file Legal Sex Male 7:01 PM EST Gender Identity Not on file Sexual Orientation Not on file Last Filed Vital Signs Vital Sign Reading Time Taken Comments Blood Pressure 116/94 02/12/2014 12:27 PM EST Pulse 105 02/12/2014 12:27 PM EST Temperature 36.6 C (97.8 F) 02/12/2014 2:33 PM EST Respiratory Rate - - Oxygen Saturation - - Inhaled Oxygen Concentration - - Weight 106.1 kg (234 lb) 02/12/2014 2:33 PM EST Height 174 cm (5' 8.5 ) 02/12/2014 2:33 PM EST Body Mass Index 35.06 02/12/2014 2:33 PM EST Plan of Treatment Health Maintenance Due Date Last Done Comments Adult Td,Tdap Booster 1967 LIPID PANEL 1967 DEPRESSION SCREENING 1979 SMOKING Hx and SMOKELESS TOBACCO SCREENING 10/23/1980 HEPATITIS C SCREENING 10/23/1985 HIV ONE-TIME SCREENING (18-6 5 YEARS) 10/23/1985 COLOGUARD 10/23/2012 COLONOSCOPY 10/23/2012 COLORECTAL CANCER SCREENING 10/23/2012 FIT TEST 10/23/2012 FOBT 10/23/2012 SIGMOIDOSCOPY 10/23/2012 VIRTUAL COLONOSCOPY 10/23/2012 PNEUMOCOCCAL VACCINES (50+ years) (2 of 2 - PCV) 10/23/2017 11/26/2015 ZOSTER VACCINES (1 of 2) 10/23/2017 INFLUENZA VACCINE (#1) 2024 0, 12/24/2015 COVID-19 VACCINE (2 - 2024-2 6 season) 2024 06/23/2020 RSV VACCINE (1 - 1-dose 75+ series) 10/23/2042 HEPATITIS A VACCINES Aged Out No long er eligible based on patient's age to complete this topic HIB VACCINES Aged Out No longer eligi ble based on patient's age to complete this topic IPV VACCINES Aged Out No longer eligi ble based on patient's age to complete this topic MENINGOCOCCAL VACCINES (ACWY) Aged Out No longer eligible based on patient's age to complete this topic MENINGOCOCCAL VACCINES (B) Aged Out N o longer eligible based on patient's age to complete this topic Medical Devices Not on file Insurance [facility] PART [facility] & B [facility] [place] [facility] MEDIC[facility] PART A & B [facility] Care Teams Sap Project Manager Relationship Specialty Start Date End Date MathewWaliDO PCP - General 07/30/14 Additional Source Comments The information contained in this document represents components of the legal health record. It is not the complete legal health record.[facility]
--- OUTSIDE RECORDS SUMMARY | 2025-02-13 14:56 | XMS_ITS | Clinical Summary ---
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
[2025-02-13 15:19] LABS: Hematocrit 50.8 % (42.0-52.0); Hemoglobin 16.8 g/dl (14.0-18.0); Mean Corpuscular HGB Conc 33.1 g/dl (31.0-36.0); Mean Corpuscular Hemoglobin 30.5 pg (27.0-33.0); Mean Corpuscular Volume 92.2 fL (80.0-98.0); NRBC Abs Auto 0.000 X10*3/uL (0.0-0.012); NRBC Pct Auto 0.0 /100WBC (0.0-0.2); Platelet Count 251 X10*3/uL (160-400); Red Blood Count 5.51 X10*6/uL (4.60-5.80); White Blood Count 7.8 X10*3/uL (4.8-10.8)
[2025-02-13 15:53] LABS: Alanine Aminotransferase 20 U/L (0-40); Albumin Level 4.8 g/dL (3.5-5.0); Alkaline Phosphatase 79 U/L (39-117); Anion Gap 13 (12-20); Aspartate Amino Transferase 23 U/L (5-37); Blood Urea Nitrogen 12 mg/dL (9-16); Calcium 9.1 mg/dL (8.4-10.2); Carbon Dioxide 28 mmol/L (22-29); Chloride 104 mmol/L (96-108); Cholesterol 236 mg/dL (<200); Estimated Glomerular Filt Rate 54; HDL Cholesterol 41 mg/dL (>40); Potassium 3.7 mmol/L (3.3-5.1); Sodium 141 mmol/L (135-145); Total Protein 8.1 g/dL (6.5-8.0); Triglycerides 101 mg/dL (<150); Uric Acid 9.0 mg/dL (3.4-7.0)
[2025-02-17 17:23] LABS: Testosterone, Free 260.9 pg/mL (35.0-155.0)
== END 2025-02-13 14:40 | disposition home or self-care (01) ==
LOC: HO.LAB 14:39
PROVIDERS: PCP Physician Assistant; Visit Provider Physician Assistant
DX: M1A.0710 Idiopathic chronic gout, right ankle and foot, without tophus (tophi) (principal); R79.89 Other specified abnormal findings of blood chemistry; E78.5 Hyperlipidemia, unspecified
CPT/HCPCS: 36415; 80053; 80061; 84402; 84403; 84550; 85027